=== PATIENT | male | born 1940 | race Two or more races ===

== ENCOUNTER 2024-01-29 10:28 | Outpatient (AMB) | payer OTHER, SELFPAY ==
--- NOTE | 2024-01-29 10:50 | HO.NEPHOV_ITS ---
Vital Signs 01/29/24 10:52 Height 5 ft 9 in Weight 125 lb 4 oz BMI 18.5 BP 110/60 Blood Pressure Location Lt brachial Position Sitting Pulse 79 Pulse Source Pulse Oximeter Pulse Oximetry (%) 98 Oxygen Delivery Method Room Air Intake Visit Reasons: CKD- Previous pt- Conf Renal Case Manager Required: Yes Renal Case Manager Language: [place] Guide Services: Renal Case Manager Offered & Declined ([facility] metal window screen assembler services refused. Pt accompanied by son.) Renal Case Manager Name: Sung-Son Accompanied by: Son Allergies morphine [MORPHINE] Allergy (Intermediate, Verified 01/29/24 10:56) RASH, ITCHING NSAIDS (Non-Steroidal Anti-Inflamma [NSAIDS (NON-STEROIDAL ANTI-INFLAMMA] Allergy (Unknown, Verified 01/29/24 10:56) UNKNOWN pregabalin [From Lyrica] Allergy (Verified 01/29/24 10:56) Unknown ibuprofen [From MOTRIN] Adverse Reaction (Unknown, Verified 01/29/24 10:56) NAUSEA HPI Comments Details: I had the privilege of seeing Mr. Bailey in consultation for CKD and hypertension. He was accompanied by his son and [id number] who provided most of the history. He is a known diabetic with history of myocardial infarction, CVA and peripheral arterial disease. He has longstanding peripheral neuropathy which has been worse. He claims to have decreased activity since his hip fracture. He does not have any active lower extremity ulcers and gangrene. He continues to be a smoker. His serum creatinine in July 2023 was 1.07. He denies any chest pain, shortness of, proximal nocturnal dyspnea, orthopnea, hematuria, recurrent urinary infection, nephrolithiasis, joint pain, sinusitis, new skin rashes, photosensitivity, epistaxis or excessive nonsteroidal anti-inflammatory medication intake. Imaging done in the past had shown right renal artery showing very little flow with an atrophic appearing right kidney. 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 He had failed revascularization for his peripheral arterial disease. [facility] Medical History (Updated 02/11/24 @ 13:12 by Ayad Byrne MD) Unintentional weight loss Secondary hypercoagulable state CAD (coronary artery disease) Renal artery injury Atrial fibrillation Renal infarct Peripheral arterial disease Facial droop CVA (cerebral vascular accident) Pulmonary emphysema Lung nodule, multiple Tobacco use Low back pain GERD (gastroesophageal reflux disease) Tubular adenoma of colon Peripheral neuropathy Anemia Old ND (myocardial infarction) Type 2 diabetes mellitus with neurological manifestations, controlled Essential (primary) hypertension Hyperlipidemia BPH (benign prostatic hyperplasia) Surgical History H/O colonoscopy History of cholecystectomy History of revascularization procedure of lower extremity Social History Alcohol intake: never Patient Tobacco Use Status: Current everyday Tobacco user Review of Systems Const All systems reviewed & are unremarkable except as noted in HPI and below Physical Exam Vital Signs: Last Vital Signs Pulse 79 01/29/24 10:52 BP 110/60 01/29/24 10:52 Pulse Ox 98 01/29/24 10:52 Oxygen Delivery Method Room Air 01/29/24 10:52 BMI result Body Mass Index 18.5 Const Other: sitting on a wheel chair General: comfortable and no acute distress Orientation/consciousness: patient oriented x3 HEENT Head: Yes normocephalic Mouth: Normal oral and palatal mucosa present Eyes EOM: EOMs intact bilaterally Neck Neck: Yes supple Resp Auscultation: clear to auscultation bilaterally Cardio Jugular venous distension: no JVD Rate: regular rate GI Palpation (GI): Soft to palpation Auscultation: normal bowel sounds General: Yes no CVA tenderness Back/Spine/Pelvis Back: no CVA tenderness Skin General skin exam: no rashes or lesions noted Neuro General: patient oriented x3 and moves all extremities Results Reviewed Nephrology Results: No Data to Display Assessment & Plan Assessment & Plan (1) CKD (chronic kidney disease) stage 3, GFR 30-59 ml/min: Code(s): N18.30 - Chronic kidney disease, stage 3 unspecified Category: Medical Qualifiers: Chronic kidney disease stage 3 subtype: stage 3a (GFR 45-59) Qualified Code(s): N18.31 - Chronic kidney disease, stage 3a (2) Hypertension: Code(s): I10 - Essential (primary) hypertension Category: Medical Qualifiers: Hypertension type: renovascular hypertension Qualified Code(s): I15.0 - Renovascular hypertension Plan Mr. 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 His last serum creatinine was done in July of 2023 which has been close to baseline. His blood pressure is at goal. He is tolerating ARB. He is on statins and Plavix as well as Xarelto . He takes Flomax for prostatic symptoms. He will be a great candidate for SGLT2 inhibitor. More than 50% time spent discussing about his CKD, renovascular issues, hypertension and management strategies. He avoids nonsteroidal anti-inflammatories and maintain good hydration. Time spent retrieving all his past medical records, reviewing it, patient encounter and documentation 61 minutes. Follow-up lab work ordered. Further management is pending evolving data Orders: Orders Electrolytes 01/29/24 N18.30 - Chronic kidney disease, stage 3 unspecified Parathyroid Hormone Intact 01/29/24 N18.30 - Chronic kidney disease, stage 3 unspecified Vitamin D 25-OH Total 01/29/24 N18.30 - Chronic kidney disease, stage 3 unspecified Hemoglobin A1c 01/29/24 N18.30 - Chronic kidney disease, stage 3 unspecified Complete Blood Count Auto Diff 01/29/24 N18.30 - Chronic kidney disease, stage 3 unspecified Creatinine 01/29/24 N18.30 - Chronic kidney disease, stage 3 unspecified Blood Urea Nitrogen 01/29/24 N18.30 - Chronic kidney disease, stage 3 unspecified Calcium 01/29/24 N18.30 - Chronic kidney disease, stage 3 unspecified Immunofixation Pnl, Serum 01/29/24 N18.30 - Chronic kidney disease, stage 3 unspecified Phosphorus 01/29/24 N18.30 - Chronic kidney disease, stage 3 unspecified Protein Creatinine Ratio, Ur 01/29/24 N18.30 - Chronic kidney disease, stage 3 unspecified Coding Level of Care Code New Pt Level 5 (28840) Diagnoses Stage 3a chronic kidney disease N18.31 Chronic kidney disease stage 3 subtype: stage 3a (GFR 45-59) Renovascular hypertension I15.0 Hypertension type: renovascular hypertension
[2024-01-29 10:52] VITALS: BP 110/60; PULSE 79; O2SAT 98; BMI 18.5
== END 2024-01-29 11:18 | disposition home or self-care (01) ==
LOC: HO.HKA 10:28
PROVIDERS: PCP Internal Medicine; Visit Provider Internal Medicine Nephrology
DX: I12.9 Hypertensive chronic kidney disease with stage 1 through stage 4 chronic kidney disease, or unspecified chronic kidney disease (principal); N18.31 Chronic kidney disease, stage 3a
CPT/HCPCS: 99215

== ENCOUNTER → 2024-01-29 10:28 | Outpatient (BNVA) | payer OTHER, SELFPAY | PROVIDERS: PCP Internal Medicine; Visit Provider Internal Medicine Nephrology | DX: I15.0 Renovascular hypertension (principal); I25.2 Old myocardial infarction; E11.22 Type 2 diabetes mellitus with diabetic chronic kidney disease; E11.51 Type 2 diabetes mellitus with diabetic peripheral angiopathy without gangrene; E11.40 Type 2 diabetes mellitus with diabetic neuropathy, unspecified; N18.31 Chronic kidney disease, stage 3a; Z86.73 Personal history of transient ischemic attack (TIA), and cerebral infarction without residual deficits | CPT/HCPCS: 99212 ==

== ENCOUNTER 2024-04-30 11:23 | Outpatient (REF) | payer OTHER, SELFPAY ==
[2024-04-30 12:03] LABS: MANUAL DIFF FLAG NO
[2024-04-30 12:18] LABS: Basophils Percent Auto 0.5 % (0-2); Eosinophils Absolute Auto 0.2 X10*3/uL (0.0-0.4); Eosinophils Percent Auto 1.8 % (0-4); Hematocrit 41.8 % (42.0-52.0); Hemoglobin 13.5 g/dl (14.0-18.0); Imm Gran Abs Auto 0.03 X10*3/uL (0.00-0.03); Imm Gran Pct Auto 0.4 % (0.0-0.4); Lymphocytes Percent Auto 36.5 % (20-40); Mean Corpuscular HGB Conc 32.3 g/dl (31.0-36.0); Mean Corpuscular Hemoglobin 28.8 pg (27.0-33.0); Mean Corpuscular Volume 89.1 fL (80.0-98.0); Mean Platelet Volume 10.7 fL (9.4-12.4); Monocytes Absolute Auto 0.4 X10*3/uL (0.1-1.2); Monocytes Percent Auto 5.3 % (2-11); Neutrophils Absolute Auto 4.6 x10*3/uL (2.0-8.3); Neutrophils Percent Auto 55.5 % (45-73); Platelet Count 222 X10*3/uL (160-400); Red Blood Count 4.69 X10*6/uL (4.60-5.80); Red Cell Distribution Width 13.7 % (11.0-16.0); White Blood Count 8.3 X10*3/uL (4.8-10.8)
[2024-04-30 12:52] LABS: Anion Gap 9 (12-20); Blood Urea Nitrogen 16 mg/dL (9-16); Carbon Dioxide 26 mmol/L (22-29); Chloride 110 mmol/L (96-108); Estimated Glomerular Filt Rate > 60; Phosphorus 3.1 mg/dL (2.7-4.5); Potassium 3.4 mmol/L (3.3-5.1); Sodium 142 mmol/L (135-145)
[2024-04-30 12:59] LABS: Vitamin D 25-OH Total 40.6 ng/mL (>30)
[2024-04-30 13:27] LABS: Estimated Average Glucose 108 mg/dL; Hemoglobin A1C 124.7711 umol/L; Hemoglobin A1c % 5.4 % (<6.0); Total Hemoglobin (HGBA1C) 3520.1574 umol/L
[2024-04-30 13:33] LABS: Parathyroid Hormone Intact 53.4 pg/mL (8.7-77.1)
--- OUTSIDE RECORDS SUMMARY | 2024-04-30 15:18 | XMS_ITS ---
Author Name Mr. Deny Urbano Address [address] [place] [address] Phone [phone] [facility] Care Team Providers Care Wares Sorter Name Role Phone Arsenio Cline Unavailable [phone] Unavailable Unavailable Unavailable [facility] Unavailable Unavailable Unavailable Unavailable Reason for Referral Not Available Allergies, adverse reactions, alerts Allergen Type Reaction Severity Status Onset Date Lyrica Allergy to substance (disorder) Unknown Active N/A Morphine Allergy to substance (disorder) Unknown Active N/A Motrin Allergy to substance (disorder) Unknown Active N/A Lisinopril Allergy to substance (disorder) Unknown Active N/A History of medication use Medication Class Instructions Start Date End Date oxyCODONE 5 mg Tab No Data Available 2022-10-22 No D león Available Accu-Chek FastClix Lancets Miscellaneous No Data Available 2022-08-14 No Data Available Atorvastatin Calcium 80 mg Tab take 1 tablet orally once daily 2022-08-14 No Data Available Clopidogrel Bisulfate 75 mg Tab 1 tablet orally daily 2022-06-04 No Data Available Finasteride 5 mg Tab 1 tablet orally daily 2022-09-18 No Data Available Folic Acid 1 mg Tab take 1 tablet orally once daily 2022-09-04 No Data Available Gabapentin 300 mg Cap 1 capsule orally at bedtime 2022 No Data Available Losartan Potassium 25 mg Tab 1 tab PO QD 2022-09-28 No Data Available metFORMIN ER 500 mg Tab ER 24hr No Data Available 2022-08-14 2023-04-22 Metoprolol Succinate ER 25 m g Tab ER 24hr 1 tablet QD 2022-06-04 No Data Available MULTIVITAMIN TABLET 1 tab daily 2022-08-14 No Data Available Omeprazole 20 mg Cap delayed rel 1 daily 2022-06-11 No Data Available QUEtiapine Fumarate 25 mg Tab No Data Available 08-144-01-22 Tamsulosin 0.4 mg Cap 1 capsule orally o ne time daily 2022-09-18 No Data Available VITAMIN B-1 100 MG TABLET No Data Available 2022-08-14 No Data Available VITAMIN B-12 100 MCG TABLET No Data Available No Data Available Xarelto 20 mg Tab No Data Available 2022-06-0404-22 OneTouch Ultra Strip No Data Available 2022-08-14 No Data Available oxyCODONE 5 mg Tab 1 tab twice daily as needed 2023-04 No Data Available Xtampza ER 27 mg Cap ER 12hr Abuse-Deterrent 1 capsule orally every 12 hours with food 2023-04-22 No Data Available Xarelto 15 mg Tab 1 tablet orally 2 ti mes per day 2023-06-26 No Data Available Naloxone 4 mg/0.1ML Liquid No Data Available 2023-05-31 2 No Data Available Xarelto 15 mg Tab No Data Available 2023-06-25 No Da ta Available amLODIPine Besylate 10 mg Tab TAKE 1 TAB LET BY MOUTH DAILY 2023-06-25 No Data Available Problem List Problem Status Onset Date Resolved Date Hypertension Active 2023-04-22 N/A Nicotine dependence Active 2023-04-22 N/A GERD (gastroesophageal reflux disease) Active 24-04-21 N/A History of CVA (cerebrovascular accident) Active 2023-04-22 N/A BPH (benign prostatic hyperplasia) Active 04-22 N/A Atherosclerosis of aorta Active 2023-04-22 N/A Opioid useChronic pain Active 2023-04-22 N/A Atherosclerosis of [place] ar teries of extremities with rest pain, bilateral legs Active 2023-04-22 N/A Type 2 diabetes mellitus wit h other specified complicationType 2 diabetes mellitus with hyperlipidemia Active 2023-04-22 N/A History of HI (myocardial in farction)History of coronary artery stent placement Active 2023-04-22 N/A Moderate dementia without behavioral disturbance Activ e 2023-04-22 N/A 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 [place] 04[place]/2023 Type 2 diabetes mellitus wit h other specified complicationHyperlipidemia, unspecifiedEssential (primary) hypertensionGastro-esophageal reflux disease without esophagitisUnspecified dementia, moderate, without behavioral disturbance, psychotic disturbance, mood disturbance, and anxietyAtherosclerosis of aortaAthscl [place] arteries of extrm w rest pain, bilateral legsEnlarged prostate without lower urinary tract symptomsPrsnl hx of TIA (TIA), and cereb infrc w/o resid deficitsOld myocardial infarctionPresence of coronary angioplasty implant and graftNicotine dependence, unspecified, uncomplicatedOpioid use, unspecified, uncomplicatedOther chronic pain New patient,40-59min; chronic exacerbation, 2 stable chronic or 1 acute illness add add modifier 95 for video (do not use for phone, instead use 89701-93) [facility] [place] New patient,40-59min; chronic exacerbation, 2 stable chronic or 1 acute illness add add modifier 95 for video (do not use for phone, instead use 32666-21) [facility] [place] New patient,40-59min; chronic exacerbation, 2 stable chronic or 1 acute illness add add modifier 95 for video (do not use for phone, instead use 81847-05) [facility] [place] New patient,40-59min; chronic exacerbation, 2 stable chronic or 1 acute illness add add modifier 95 for video (do not use for phone, instead use 33999-10) [facility] [place] New patient,40-59min; chronic exacerbation, 2 stable chronic or 1 acute illness add add modifier 95 for video (do not use for phone, instead use 96992-05) [facility] [place] New patient,40-59min; chronic exacerbation, 2 stable chronic or 1 acute illness add add modifier 95 for video (do not use for phone, instead use 49728-35) [facility] [place]20[place] New patient,40-59min; chronic exacerbation, 2 stable chronic or 1 acute illness add add modifier 95 for video (do not use for phone, instead use 60664-17) [facility] [place] 04[place]20[place] New patient,40-59min; chronic exacerbation, 2 stable chronic or 1 acute illness add add modifier 95 for video (do not use for phone, instead use 68057-57) [facility] [place] New patient,40-59min; chronic exacerbation, 2 stable chronic or 1 acute illness add add modifier 95 for video (do not use for phone, instead use 30928-08) [facility] [place] RN, CN or CP time with patient by phone; use with 1111F, BP, A1c or other CPTII codes [facility] [place] 06[place]2023 Encounter for other specifie d aftercare RN, CN or CP time with patient by phone; use with 1111F, BP, A1c or other CPTII codes [facility] [place] 06[place]26/20[place] Estab. patient 20-29min; 1 stable chronic or 2 minor; add add modifier 95 for video, modifier [address] [facility] [place]2023 Unspecified infectious diseasePresence of other specified devicesUnspecified dementia, moderate, without behavioral disturbance, psychotic disturbance, mood disturbance, and anxietyEncounter for other specified aftercare Estab. patient 20-29min; 1 stable chronic or 2 minor; add add modifier 95 for video, modifier [address] [facility] [place]20[place] RN, CN or CP time with patient by phone; use with 1111F, BP, A1c or other CPTII codes [facility] [place] 07/02/2023 Encounter for other specifie d aftercare Vital Signs Date of Collection Vitals 2023-04-22 09:36:09 Height - 172.72 cmWe ight - 64.86 kgBody Mass Index (BMI) - 21.74 kg/m2BP Diastolic - 61.0 mm[Hg]BP Systolic - 136.0 mm[Hg]Heart Rate - 59.0 /minPain Scale - 0.0 {score} Social History Social History Social History Observation Description Effec tive Time Current Smoking Status Current every day smoker 2024-04-30 Sex Male History of Procedures Procedures Service Procedure code Service date Servicing provider Phone# New patient,40-59min; chronic exacerbation, 2 stable chronic or 1 acute illness add add modifier 95 for video (do not use for phone, instead use [id number]) 16566 2023-04-22 No Data Available No Data Availa ble Pain Assessment - NO pain present (1126F) 1126F 2023-04-22 No Data Available No Data A vailable Medication List Documented (1159F) 1159F 2023-04-22 No Data Available No Data Liz ilable Medication Review by prescribing provider or pharmacist documented (1160F) 1160F 2023-04-22 No Data Available No Data Liz ilable Advance Care Directive Advance care planning discussion documented in the medical record (1158F) 1158F 2023-04-22 No Data Available No Data Availa ble BMI obtained (3008F) 3008F 2023-04-22 No Data Availab le No Data Available Advance care planning discussed and documented ? advance care plan or surrogate decision-maker was documented in the medical record. (1123F) 1123F 2023-04-22 No Data Available No Data Availa ble SBP 130-139 (3075F) 3075F 2023-04-22 No Data Availabl e No Data Available DBP <80 (3078F) 3078F 2023-04-22 No Data Available No Data Available Functional Status Assessed (1170F) 1170F 2023-04-22 No Data Available No Data Avail able RN, CN or CP time with patient by phone; use with 1111F, BP, A1c or other CPTII codes 64550 2023-06-26 No Data Available No Data Avai lable Medications prescribed in hospital were reviewed and reconciled against what they were taking prior to admission during today's visit. (1111F) 1111F 2023-06-26 No Data Available No Data Availa ble Estab. patient 20-29min; 1 stable chronic or 2 minor; add add modifier 95 for video, modifier 93 for phone 54682 2023-06-27 No Data Available No Data Availa ble Medications prescribed in hospital were reviewed and reconciled against what they were taking prior to admission during today's visit. (1111F) 1111F 2023-06-27 No Data Available No Data Availa ble RN, CN or CP time with patient by phone; use with 1111F, BP, A1c or other CPTII codes 39155 2023-07-02 No Data Available No Data Avai lable Functional Status Functional Category Effective Dates Activities of Daily Livin2023-04-22 Bathing: Needs Assistance 2023-04-22 Dressing: Needs Assistance 2023-04-22 Eating: Independent 2023-04-22 Ambulation/Walking: Needs Assistance, us es walker. 2023-04-22 Toileting: Needs Assistance 2023-04-22 Transferring: Needs Assistance 2023-04-02 2 Mental Status Status Date Impaired/ Dementia 2023-04-22 Assessments Date of Service Assessments 2023-04-22 09:36:09 Type 2 diabetes mee itus with other specified complicationType 2 diabetes mellitus with hyperlipidemiaHypertensionGERD (gastroesophageal reflux disease)Moderate dementia without behavioral disturbanceAtherosclerosis of aortaAtherosclerosis of [place] arteries of extremities with rest pain, bilateral legsBPH (benign prostatic hyperplasia)History of CVA (cerebrovascular accident)History of HI (myocardial infarction)History of coronary artery stent placementNicotine dependenceOpioid useChronic pain 2023-06-27 08:52:36 Patient Education to avoid future hospitalization: Call [facility] if symptoms of illness develop.Infection with trinh catheter in placeModerate dementia without behavioral disturbance Plan of Care Date of Service Plans 2023-04-22 09:36:09 Pain Assessment - NO pain documented (1126F)Medication Review by prescribing provider or pharmacist documented (1160F)Medication List Documented (1159F)Functional Status Assessed (1170F)Advance Care Directive Advance care planning discussion documented in the medical record (1158F)BMI obtained (3008F)SBP 130-139 (3075F)DBP <80 (3078F)Televideo new patient,40-59min; chronic exacerbation, 2 stable chronic or 1 acute illness add modifier 95Advance care planning discussed and documented ? advance care plan or surrogate decision-maker was documented in the medical record. (1123F)Continue to see PCP. Follow-up with [facility] as needed for any acute or disease education needs that may arise.Follows up with PCP.Glucose at home: 90 mg/dl. Was taking Metformin, but discontinued by PCP due to being stable and monitoring for now.No recent A1C found on outside records. Taking:DM: Diet controlled. HL: Atorvastatin Calcium 80 mg Tab take 1 tablet orally once dailyAdvised to follow low fat, low carb, heart healthy diet.Continue treatment as prescribed. Follow up with PCP as scheduled.Contact CB 24/7 as needed.Follows up with PCP and Community Development Aide.BP: 136/61. Reported by lorie, taken at time of video encounter. Reports it has been well controlled. Taking:Losartan Potassium 25 mg Tab 1 tab PO QDMetoprolol Succinate ER 25 mg Tab ER 24hr 1 tablet QDDenies any acute complaint.Continue treatment as prescribed, follow up as instructed.Monitor BP regularly at home.Follow low Sodium diet. Contact CB 24/7 as needed.Follows up with PCP.Taking: Omeprazole 20 mg Cap delayed rel 1 dailyDenies any acute complaint.Continue treatment as prescribed, follow up as instructed.Elevate head of bed. Avoid triggers. Contact CB 24/7 as needed.Follows up with Neurologist.Lorie reports decline in memory.Neurologist ordered some tests, pending to complete.Not taking any medications.Lives at home with his . Lorie is primary caregiver. Denies any acute complaint.Follows up with PCP and Community Development Aide.Taking: Atorvastatin Calcium 80 mg Tab take 1 tablet orally once dailyAdvised to follow low fat, low carb, heart healthy diet.Continue treatment as prescribed. Follow up with PCP as scheduled.Contact CB 24/7 as needed.Follows up with vascular specialist.Reports frequent leg pain bilaterally,.Denies any skin ulcers at this time.Uses walker to ambulate. Taking: Clopidogrel Bisulfate 75 mg Tab 1 tablet orally dailyAtorvastatin Calcium 80 mg Tab take 1 tablet orally once dailyDoing well on current treatment.Denies any acute complaint.Continue treatment as prescribed, follow up as instructed.Contact CB 24/7 as needed.Follows up with Urologist.Taking: Finasteride 5 mg Tab 1 tablet orally dailyTamsulosin 0.4 mg Cap 1 capsule orally one time dailyDoing well on current treatment.Denies any acute complaint.Continue treatment as prescribed, follow up as instructed.Contact CB 24/7 as needed.History of CVA (cerebrovascular accident) in 2018. Completed PT and no residual effects. Follows up with PCP and Community Development Aide. Denies any acute complaint.History of HI (myocardial infarction) about [address] ago[address] in [address] Follows up with Community Development Aide.On Statin: Atorvastatin Calcium 80 mg Tab take 1 tablet orally once dailyTaking: Clopidogrel Bisulfate 75 mg Tab 1 tablet orally dailyDoing well on current treatment.Denies any acute complaint.Continue treatment as prescribed, follow up as instructed.Contact CB 24/7 as needed.Daily smoke, not willing to quit. Advised of negative effects of smoking and health. Contact us 24/7 for assistance with smoking cessation.Follows up with PCP every 2-3 months as needed. Reports chronic pain to legs and knees. Taking:oxyCODONE 5 mg Tab 1 tab twice daily as neededXtampza ER 27 mg Cap ER 12hr Abuse-Deterrent 1 capsule orally every 12 hours with foodGabapentin 300 mg Cap 1 capsule orally at bedtimePrescribed by PCP, Dr. HERNANDO VEGA.Has been taking these medications for years without any complications. Reports doing well on treatment. Denies any complications.Advised to take medications as prescribed only.Follow up as scheduled.Contact CB 24/7 as needed. 2023-06-27 08:52:36 Discharge medication s reconciled with current medication listTelevideo 20-29min; 1 stable chronic or 2 minor; add modifier 95PCP visit is planned for:Awaiting hospital recordsPer CG p t clearly needs nursing at home but details are unknown to us. CN to call family and facilitate communication w PCP and hospital who are the ones referring the nurse.Follows up with Neurologist.Grandson reports decline in memory.Neurologist ordered some tests, pending to complete.Not taking any medications.Lives at home with his . Grandson is primary caregiver. Denies any acute complaint. 2023-07-02 14:06:30 07/05/23 Goals Date Goal 2023-04-22 Remember to keep all appointments with your PCP and specialists. Call 24/7 if you have questions or concerns. Discussed how to contact [facility] via phone or tablet. 24/7 phone number provided.
--- OUTSIDE RECORDS SUMMARY | 2024-04-30 15:18 | XMS_ITS ---
Author Organization [facility] Address [address] [place] [address] Care Team Providers Care Vehicle Care Specialist Name Role Phone Idalia Beckman Primary Care Provid er Unavailable GaffneyLee Ann Unavailable [phone] Allergies Allergen (clinical drug ingredient) Drug/Non Drug Allergy documented on EMR Reaction Allergy Type Onset Date Status morphine Morphine redness Drug Allergy Active REASON FOR VISIT At Risk Footcare, Painful Nail(s) aggravated by shoes and causing difficulty standing/walking., Skin problem(s) Medications Medication SIG (Take, Route, Frequency, Duration) Notes Start Date End Date Status Gabapentin 1 @ bedtime Active Losartan Potassium 1 daily A ctive Finasteride 1 daily Active Atorvastatin Calcium Active Clopidogrel & Aspirin 1 daily Active Tamsulosin HCl 1 in A.M. Activ e Multivitamin 1 dauky Active Omeprazole 1 daily Active Vitamin B12 1 daily Active Metoprolol & Diet Manage Prod 1 daily Active Ammonium Lactate 12 % 1 application Externally to affected areas of dry skin to feet except for between the toes Twice a day for 30 days Active Plavix Active Social History Tobacco Use: Social History Observation Description Date Details (start date - stop date) Former Smoker NA - NA Tobacco use other than smoking: Question Answer Notes Are you an other tobacco user? No Tobacco Control (Standard) Question Answer Notes Tobacco use: Former smoker Additional Findings: Tobacco non-user Cu rrent nonsmoker, but past smoking history unknown AUDIT-C (Standard) Question Answer Notes Did you have a drink containing alcohol in the p ast year? No Points 0 Interpretation Negative Problems Problem Type SNOMED Code ICD Code Onset Dates Problem Status W/U Status Risk Notes Problem Atherosclerosis of [place] artery of both lower extremities, with unspecified presence of clinical manifestation (I70.203) Active confirmed Q7(A), Q8(2B), Q9(1B,2C) Vital Signs Height 5 ft 9inch in 03/02/2024 Weight 128 lbs 03/02/2024 BMI 18.9 kg/m2 03/02/2024 Procedures Procedure Date Ordered Date Performed Result Body Sit e 44520-XLFXOBS NAIL, 6 OR MORE 03/02/2024 N/A 36347-GPCL SKIN LESIONS, 2 TO 4 03/02/2024 N/A Encounters Encounter Location Date Provider Diagnosis [facility] [place] [address] [place] [address] 03/02/2024 Lee Ann Gaffney Atherosclerosis of [place] artery of both lower extremities, with unspecified presence of clinical manifestation I70.203 ; Tinea unguium B35.1 ; Pain in right toe(s) M79.674 ; Pain in left toe(s) M79.675 and Xerosis of skin L85.3 Assessments Encounter Date Diagnosis (ICD Code) Assessment Notes Treatment Notes Treatment Clinical Notes Section Notes 03/02/2024 Atherosclerosis of [place] artery of both lower extremities, with unspecified presence of clinical manifestation (ICD-10 - I70.203) Q7(A), Q8(2B), Q9(1B,2C) 03/02/2024 Tinea unguium (ICD-10 - B35.1) 03/02/2024 Pain in right toe(s) (ICD-10 - M79.674) 03/02/2024 Pain in left toe(s) (ICD-10 - M79.675) 03/02/2024 Xerosis of skin (ICD-10 - L85.3) Plan Of Treatment Medication Medication Name Sig Start Date Stop Date Notes Ammonium Lactate 12 % 1 application Exte rnally to affected areas of dry skin to feet except for between the toes Twice a day for 30 days Pending Test Test Name Order Date 91084-HUHTLHT NAIL, 6 OR MORE 03/02/2024 63673-PCXP SKIN LESIONS, 2 TO 4 03/02/20 24 Next Appt Details Follow Up: 4 Months, Reason: Provider Name:Lee Ann thorpe, 07/15/2024 01:30:00 PM, [address] [place], [address], Procedure Notes * Category Sub-Category Detail Notes Debride Nail 6-10 Nail debridement Performance o f this nail treatment by a nonprofessional would put this patients foot and overall health at risk. Therefore, debridement to affected nail(s), as described in exam, was performed extensively to reduce/remove overall nail length, girth, thickness, subungual debris, and necrotic tissue, by manual and/or electrical means through the use of a nail nipper and/or dremel-type sausage grinder, to a more viable healthy nail plate or bed tissue 6-10 nails in total. Silver nitrate was used for any petechial bleeding as necessary. Definitive antifungal treatment options, both pharmaceutical and surgical, have been reviewed and discussed with the patient. The patient solely prefers the use of intermittent/as needed professional debridement services for their nail condition and understands the need for additional periodic treatments to maintain effectiveness in symptomatic relief - 03907 Keratoma Treatment Parring or Cutting o f Benign Hyperkeratotic Lesion(s) (-56) 2-4 Lesions - The Benign hyperkeratotic lesions, ( _2 ) in total, locations as stated and described in exam, were pared, and/or cut utilizing a sterile 15 blade, tissue nippers, and/or power dremel instrumentation - 91683, Q8 Progress Notes * Ross BAILEYioDOB: [birth year] (83 yo M)Acc No.[id number]:03/02/2024 Progress Notes Patient:?Markus BAILEY Provider:?Lee Ann Gaffney DPM :1940???Age:83 Y???Sex:Male Mathew e:03/02/2024 Address:[address] [place], [place] [id number] Pcp:Idalia Yin account services analyst Subjective: * Chief Complaints: * ???At Risk FootcarePainful N ail(s) aggravated by shoes and causing difficulty standing/walking.Skin problem(s) * HPI: ???At Risk footcare:?Pt States Last PCP Visit:?Date?12/17/2023 ???Skin problems:?Nature:?dryness , scaling.?Location:?B/L .?Duration:?several days.?Course:?worse.? * ROS:?General/Constitutional:?Nausea?denies.?Vomiting?denies.?Hunger Thirst?denies.?Loss appetite?admits.?Chills?denies.?Fatigue?admits.?Fever?denies.?Night Sweats?denies.?Unexplained weight loss?admits.?Unexplained weight gain?denies.?HEENTM:?Dentures?denies.?Dizziness?denies.?Glasses/contacts?denies.?Retinopathy?de nies.?Blurred/double vision?denies.?TMJ?denies.?Discharge/drainage?denies.?Implants?denies.?Sore throat?denies.?Dental implants?denies.?Hard of hearing ?denies.?Difficulty chewing/swallowing/speaking?denies.?Nose bleeds?denies.?Sore mouth?denies.?Respiratory:?On Oxygen?denies.?Pneumonia/pleurisy?denies.?Bronchitis?denies.?Emphysema?denies.?C oughing?denies.?Cough blood?denies.?Shortness of breath?denies.?Wheezing?denies.?Cardiovascular:?Pacemaker?denies.?MVP?denies.?WPW?denies.?CHF?denies.?Heart attack?admits.?Septal defect?denies.?Rapid beat?denies.?Chest pain ?denies.?Atrial Fib.?denies.?Murmur/Palpitations?denies.?Gastrointestinal:?Hemorrhoids?denies.?Stomach/Abdominal pain?denies.?Dark blood stool?denies.?Irritable bowel ?denies.?Constipation?admits.?Diarrhea?denies.?Hematology:?Swelling?denies.?Clots?denies.?Varicose Veins?denies.?Bruising?denies.?Bleeding problem?admits.?Genitourinary:?Blood urine?denies.?Frequent/Painfu/urination/bladder control?denies.?Kidney stones?denies.?Infection (UTI)?admits.?Nephropathy?admits.?sex trans dis (STD)?denies.?Prostate?denies.?Musculoskeletal:?Hammertoes?denies.?Bunions?denies.?Back Pain?admits.?Muscle Cramps/ Resting?denies.?Muscle cramps / walking?denies.?Generalized aches and pains?denies.?Weakness?admits.?Integ.:?[place]?denies.?Scars?denies.?Corns/calluses?denies.?Ingrown nails?denies.?Painful nails?denies.?Open Sores?denies.?Rashes?denies.?Neurologic:?Difficulty sleeping?admits.?Brain disorder?denies.?Numbness?denies.?Balance trouble?admits.?Confusion?denies.?Fainting/blackouts?denies.?Tingling?denies.?Tr emors?denies.? * Medical History:? * Surgical History:?Denies Pas t Surgical History * Hospitalization/Major Diagno stic Procedure:?Denies Past Hospitalization * Family History:?Father: diag nosed with Unspecified heart disease, Unspecified cerebral artery occlusion with cerebral infarction, Family history of arthritis.? * Social History:?Tobacco Use:?Tobacco use other than smoking?Are you an other tobacco user??No ?Tobacco Control (Standard)?Tobacco use:?Former smoker ?Additional Findings: Tobacco non-user?Current nonsmoker, but past smoking history unknown ???Drugs/Alcohol:?Drugs?Have you used drugs other than those for medical reasons in the past 12 months??No ???Miscellaneous:?Caffeine: no, frequency:. ?Occupation: none. ???Drug/Alcohol:?AUDIT-C (Standard)?Did you have a drink containing alcohol in the past year??No ?Points?0 ?Interpretation?Negative * Medications:?TakingPlavix Om eprazole , Notes to Pharmacist: 1 dailyMetoprolol & Diet Manage Prod , Notes to Pharmacist: 1 dailyVitamin B12 , Notes to Pharmacist: 1 dailyMultivitamin , Notes to Pharmacist: 1 daukyTamsulosin HCl , Notes to Pharmacist: 1 in A.M.Losartan Potassium , Notes to Pharmacist: 1 dailyGabapentin , Notes to Pharmacist: 1 @ bedtimeFinasteride , Notes to Pharmacist: 1 dailyClopidogrel & Aspirin , Notes to Pharmacist: 1 dailyAtorvastatin Calcium Medication List reviewed and reconciled with the patientTaking Plavix Taking Omeprazole , Notes to Pharmacist: 1 dailyTaking Metoprolol & Diet Manage Prod , Notes to Pharmacist: 1 dailyTaking Vitamin B12 , Notes to Pharmacist: 1 dailyTaking Multivitamin , Notes to Pharmacist: 1 daukyTaking Tamsulosin HCl , Notes to Pharmacist: 1 in A.M.Taking Losartan Potassium , Notes to Pharmacist: 1 dailyTaking Gabapentin , Notes to Pharmacist: 1 @ bedtimeTaking Finasteride , Notes to Pharmacist: 1 dailyTaking Clopidogrel & Aspirin , Notes to Pharmacist: 1 dailyTaking Atorvastatin Calcium Medication List reviewed and reconciled with the patient * Allergies:?Morphine: redness Objective: * Vitals:?Ht:5 ft 9inch, Wt:12 8, BMI: 18.9, Shoe size:9, BS:not taken, Ht-cm: 175.26 cm, Wt-k.06 kg. * Examination: ???General Examination: ?GENERAL APPEARANCE:?Reveals a pleasant, alert, well nourished, well- developed, well hydrated individual, who demonstrates proper attention to hygiene/body habitus, and is in no acute distress, Pt presents with daughter who serves as historian.?ORIENTED:?person, place, and time.?Vascular: ?DP PULSES(B):? 0/4, B/L.?PT PULSES(B):? 0/4, B/L.?CAPILLARY FILL TIME:? delayed, all digits, B/L.?TROPHIC CONDITION-TEXTURE/ELASTICITY/TURGOR/HAIR GROWTH(B):? decreased, fragile, thin, shiny skin, with sparse to absent hair growth, B/L.?TEMPERTURE GRADIENT(C):? decreased, cool to cool, proximal to distal, B/L.?PIGMENTATION:?mottled, B/L.?EDEMA(C):?absent, B/L.?CLAUDICATION(C):?denies, B/L.?REST PAIN:?denies, B/L.?PARESTHESIA(C):?absent, B/L.?BURNING(C):?absent, B/L.?Nails: ?NAILS are:?Elongated, overgrown, dystrophic, lytic, greater than 3mm thick, discolored and friable with crumbly malodorous subungual debris, with pain on palpation, 1-5 B/L.?Dermatologic: ?SKIN FINDINGS:?Skin exam reveals Keratotic lesion(s) located at?heels B/L, Skin shows sign(s) of, dryness, scaling, in a stocking fashion, no fissure(s) present, B/L.?Orthopedic: ?MUSCLE STRENGTH:?5/5 all groups in a symmetrical fashion, B/L.?Neurological: ?SENSORY:?Neurological exam reveals intact sensorium, pain sensation normal, vibration sensation intact, pinprick sensation is normal in the lower extremities, Pt denies, anesthesia, burning, paresthesia, tingling, B/L.?Ophthalmology Referral: ?DIABETES EYE EXAM?CQM Exceptions:: ?Hemoglobin A1c not performed? Assessment: * Assessment: 1.?Atherosclerosis of [place] artery of both lower extremities, with unspecified presence of clinical manifestation - I70.203 (Primary)???Notes :Q7(A), Q8(2B), Q9(1B,2C)???2.?Tinea unguium - B35.1???3.?Pain in right toe(s) - M79.674???4.?Pain in left toe(s) - M79.675???5.?Xerosis of skin - L85.3???Specify :Acute problem, Uncomplicated (3),Rx Management (4)??? Plan: * Treatment: 2.?Tinea unguium?Procedure: 84229-YHSFTRX NAIL, 6 OR MORE 3.?Xerosis of skin? Start Ammonium Lactate Cream, 12 %, 1 application, Externally to affected areas of dry skin to feet except for between the toes, Twice a day, 30 days, 140, Refills 2.?? * Procedures:?Debride Nail 6-10:?Nail debridement?Performance of this nail treatment by a nonprofessional would put this patients foot and overall health at risk. Therefore, debridement to affected nail(s), as described in exam, was performed extensively to reduce/remove overall nail length, girth, thickness, subungual debris, and necrotic tissue, by manual and/or electrical means through the use of a nail nipper and/or dremel-type sausage grinder, to a more viable healthy nail plate or bed tissue 6-10 nails in total. Silver nitrate was used for any petechial bleeding as necessary. Definitive antifungal treatment options, both pharmaceutical and surgical, have been reviewed and discussed with the patient. The patient solely prefers the use of intermittent/as needed professional debridement services for their nail condition and understands the need for additional periodic treatments to maintain effectiveness in symptomatic relief - 55004.?Keratoma Treatment:?Parring or Cutting of Benign Hyperkeratotic Lesion(s)?(-56) 2-4 Lesions - The Benign hyperkeratotic lesions, ( _2 ) in total, locations as stated and described in exam, were pared, and/or cut utilizing a sterile 15 blade, tissue nippers, and/or power dremel instrumentation - 82661, Q8.? * Procedure Codes:?07989 DEBRI DE NAIL, 6 OR MORE, Modifiers: XS 05421 TRIM SKIN LESIONS, 2 TO 4, Modifiers: XS , Q8 * Preventive Medicine:? ??Counseling:?Discussion:?-03: Office or other outpatient visit for the evaluation and management of a new patient, which required a medically appropriate history and/or examination and LOW level of DECISION MAKING for: 1 STABLE ACUTE UNCOMPLICATED PROBLEM, 2 OR MORE MINOR PROBLEMS, OR 1 STABLE CHRONIC PROBLEM, THAT POSE(S) A LOW RISK FOR MORBIDITY/MORTALITY. The visit on the day of the encounter encompassed interpreting the data and educating the patient as to the nature of their condition, treatment options available according to their individual PMH, meds, allergies, and overall health/living conditions, as well as any potential risks or complications that may occur from a failure to adhere to, and participate in, the recommended course of therapy. The discussion included a complete verbal, and/or written explanation of the examination results, any x-rays taken, the proposed diagnosis, and outline of the treatment plan. A schedule for future care needs was also explained. The patient verbalized an understanding of the instructions at this time and agreed to be an active participant in their treatment. If the patient should think of any questions or concerns after the visit, I have encouraged the patient to call the office.?Xerosis:?The patient was counseled on the diagnosis, potential etiologies, and treatment options for their skin condition. We discussed the risks and benefits of each option from performing no treatment, to utilizing OTC topical skin creams/ointments, to utilizing prescription topical creams/ointments, to utilizing customized compounded topical medications and use of nocturnal occlusion with any/all previously detailed therapies. We discussed the advantages and disadvantages of each possible treatment and importance for adherence to all the recommended therapies for optimum success and avoid potential complications such as open sore/infection/possible hospitalization. We discussed the potential effectiveness of each topical preparation as well as each ones possible side effects and/or patient medication interactions. Patient questions re: use, dosage, successful outcomes, and application consistency were reviewed and the patient verbalized that all answers were clearly understood. The patient has decided to apply Rx skin creams to their feet save the interspaces while paying special attention to the heels. Such was sent to their pharmacy at the time of visit.? * Follow Up:?4 Months * Images: * Sign off status: Completed true * Provider:?Lee Ann Gaffney DPM Date:?05/03/2023 Generated for Miles camacho/Hira/Mane on:?04/30/2024 03:17 PM EST History and Physical Notes * HPI (History of Present Illness) Category Sub-Category Detail Notes Category Not es Skin problems Nature: dryness , scaling Location: B/L Duration: several days Course: worse At Risk footcare Pt States Last PCP Visit: Date: 4 Examination Category Sub-Category Detail Notes Category Not es Neurological SENSORY: Neurological exa m reveals intact sensorium, pain sensation normal, vibration sensation intact, pinprick sensation is normal in the lower extremities, Pt denies, anesthesia, burning, paresthesia, tingling, B/L Dermatologic SKIN FINDINGS: Skin exam reveal s Keratotic lesion(s) located at heels B/L, Skin shows sign(s) of, dryness, scaling, in a stocking fashion, no fissure(s) present, B/L Orthopedic MUSCLE STRENGTH: 5/5 all groups in a symmetrical fashion, B/L General Examination GENERAL APPEARANCE: Reveals a pleasant, alert, well nourished, well-developed, well hydrated individual, who demonstrates proper attention to hygiene/body habitus, and is in no acute distress, Pt presents with daughter who serves as historian ORIENTED: person, place, and t evans Ophthalmology Referral DIABETES EYE EXAM Procedure Perform ed:: No Findings of Diabetic Eye Exam:: no retin opathy Vascular DP PULSES (B): 0/4, B/L PT PULSES (B): 0/4, B/L CAPILLARY FILL TIME: delayed, all digits , B/L TEMPERTURE GRADIENT (C): decreased, cool to cool, proximal to distal, B/L TROPHIC CONDITION-TEXTURE/ELASTICITY/TURGOR/HAIR GROWTH (B): decreased, fragile, thin, shiny skin, wi th sparse to absent hair growth, B/L EDEMA (C): absent, B/L CLAUDICATION (C): denies, B/L REST PAIN: denies, B/L PIGMENTATION: mottled, B/L PARESTHESIA (C): absent, B/L BURNING (C): absent, B/L Nails NAILS are: Elongated, overg rown, dystrophic, lytic, greater than 3mm thick, discolored and friable with crumbly malodorous subungual debris, with pain on palpation, 1-5 B/L CQM Exceptions: Hemoglobin A1c not performed Reason:: No r alexy specified
--- OUTSIDE RECORDS SUMMARY | 2024-04-30 15:18 | XMS_ITS ---
Author Organization [facility] Address [address] [place] [id number] Care Team Providers Care State Appellate Clerk Name Role Phone Idalia Beckman Primary Care Provid er Unavailable Lee Ann Gaffney [phone] REASON FOR VISIT STUDENT WORKER PW Encounters En[facility] [address] [facility] Lee Ann Gaffney Plan Of Treatment Next Appt Details Provider Name:Lee Ann thorpe, 07/15/2024 01:30:00 PM, [address] [place], [address], Progress Notes * Ross BAILEYioDOB: [birth year] (83 yo M)Acc No.[id number]:02/19/2024 Patient:?Markus BAILEY :1940???Age:83 Y???Sex:Male Address:[place] [address] * true * Date:? Generated for Miles camacho/Hira/eTransmitting on:?04/30/2024 03:17 PM EST
--- OUTSIDE RECORDS SUMMARY | 2024-04-30 15:18 | XMS_ITS | Clinical Summary ---
Author Organization [id number] it Address [address] [place] [address] Care Team Providers Care Building Engineer Name Role Phone JasonIdalia delcid DO Primary Care Pro vider Surgical History Surgery Date Site/Laterality Comments CHOLECYSTECTOMY PROCEDURE: HISTORICAL CHOLECYSTECTOMY; COMMENT: ? removal or stent COLONOSCOPY 11/21/2016 PROCEDURE: HISTORICAL COLONOSCOPY; COMMENT: tubular adenoma OTHER SURGICAL HISTORY 04/17/2022 PROCEDURE: CA SLCTV CATHJ 3RD+ ORD SLCTV ABDL PEL/LXTR BRNCH OTHER SURGICAL HISTORY 04/17/2022 PROCEDURE: X-RAY ABDOMINAL AORTA, LEG ARTERIES OTHER SURGICAL HISTORY 04/17/2022 PROCEDURE: X-RAY EXAM OF ARM/LEG ARTERY OTHER SURGICAL HISTORY 04/17/2022 PROCEDURE: ULTRASOUND GUIDANCE FOR VASCULAR AC Medical History Medical History Date Comments HTN (hypertension) DX:HTN (hyper tension) Dyslipidemia DX:Dyslipidemia BPH (benign prostatic hyperplasia) DX:BPH (benign prostatic hyperplasia) CAD (coronary artery disease) 04/06/2014 DX :CAD (coronary artery disease); COMMENT: RCA stenting and re stenting 2008 Old [place] (myocardial infarction) D X:Old [place] (myocardial infarction) Diabetes type 2, controlled (CMS/HCC) DX:Diabetes type 2, controlled (HCC) Anemia 04/06/2014 DX:Anemia Peripheral neuropathy 04/06/2014 DX:Periphe ral neuropathy Tubular adenoma of colon 04/06/2014 DX:Tubu lar adenoma of colon; COMMENT: 2010 GERD (gastroesophageal reflux disease) 5 DX:GERD (gastroesophageal reflux disease) Low back pain 04/06/2014 DX:Low back pain Cholelithiases 04/06/2014 DX:Cholelithiase s Type 2 diabetes mellitus wit h neurological manifestations, controlled ([facility]) DX:Type 2 diabetes mellitus with neurological manifestations, controlled ([facility]) Tobacco use DX:Tobacco use Cerebrovascular accident (CV A) within last 3 months DX:Cerebrovascular accident (CVA) within last 3 months Choledocholithiasis 04/06/2014 DX:Choledoch olithiasis; COMMENT: 12/31/13 DM (diabetes mellitus), type 2 with peripheral vascular complications ([facility]) 02/01/2021 DX:DM (diabetes mellitus), t ype 2 with peripheral vascular complications ([facility]) Urinary retention DX:Urinary ret ention Aspiration pneumonia ([facility]) D X:Aspiration pneumonia ([facility]) LEE (acute kidney injury) ([facility]) DX:LEE (acute kidney injury) ([facility]) Type 2 diabetes mellitus wit hout complication, unspecified whether senior care insulin use ([facility]) DX:Type 2 diabetes mellitus without complication, unspecified whether senior care insulin use ([facility]) Chronic pain syndrome DX:Chronic pain syndrome Dementia ([facility]) DX:Dementia ( [facility]) Social History Tobacco Use Types Packs/Day Years Used Date Smoking Tobacco: Former Cigarettes 0.3 74.1 0 [birth year]01/1949 - 05/02/2023 Smokeless Tobacco: Never Alcohol Use Standard Drinks/Week Comments No 0 (1 standard drink = 0.6 oz pur e alcohol) Sex and Gender Information Value Date Recorded Sex Assigned at Not on file Gender Identity Not on file Sexual Orientation Not on file Obstetrics History Last Filed Vital Signs Vital Sign Reading Time Taken Comments Blood Pressure 110/60 09/16/2023 11:30 AM EDT Pulse 72 09/16/2023 11:30 AM EDT Temperature - - Respiratory Rate - - Oxygen Saturation - - Inhaled Oxygen Concentration - - Weight 55.8 kg (123 lb) 09/16/2023 11:30 AM EDT Height 172.7 cm (5' 8 ) 09/16/2023 11:30 AM EDT Body Mass Index 18.7 09/16/2023 11:30 AM EDT Plan of Treatment Health Maintenance Due Date Last Done Comments Diabetes: Annual GFR (Glomerular Filtration Rate) 1940 Diabetes: Annual Foot Exam 1950 Diabetes: Annual Retina Eye Exam 1950 DTaP,Tdap,and Td Vaccines (1 - Tdap) 06/19/1959 Zoster Vaccines (2 of 3) 02/20/2013 12/26/2012 RSV Immunization Patients 60+ Years Old (1 - 1-dose 75+ series) 06/19/2015 Cholesterol Screening (Lipid Panel) 03/10/2022 Depression Screening 03/10/2022 Falls Risk Assessment 03/10/2022 Social Influencers of Health Screening 03/10/2022 Hypertension/CHF/CAD Annual BMP Blood Test 03/11/2022 Diabetes: Annual Urine Albumin-Creatinine Ratio (uACR) 03/15/2022 Diabetes: Blood Sugar Control Test (HGBA1C) 03/15/2022 COVID-19 Vaccine ( season) 2023 Influenza Vaccine (#1) 2023 , 01/23/2019, 12/10/2017, Additional history exists Pneumococcal Vaccine: 65+ Years Completed 02/28/2016, 01/17/2010, 01/14/2002 HIB Vaccines Aged Out No longer eligi ble based on patient's age to complete this topic HPV Vaccines Aged Out No longer eligi ble based on patient's age to complete this topic Hepatitis A Vaccines Aged Out No long er eligible based on patient's age to complete this topic Hepatitis B Vaccines Aged Out No long er eligible based on patient's age to complete this topic IPV Vaccines Aged Out No longer eligi ble based on patient's age to complete this topic MMR Vaccines Aged Out No longer eligi ble based on patient's age to complete this topic Meningococcal ACWY Vaccine Aged Out N o longer eligible based on patient's age to complete this topic RSV Immunization Patients Under 20 months Aged Out No longer eligible based on patient's age to complete this topic Varicella Vaccines Aged Out No longer eligible based on patient's age to complete this topic Procedures Procedure Name Priority Date/Time Associated Diagnosis Comments ECHO 02/25/2024 EXTERNAL VASCULAR ULTRASOUND 02/13/2024 from Last 3 Months Results * Echo (02/25/2024) Anatomical Region Laterality Modality Other Provider [facility]IST[facility] [place] PROCEDURES * External Vascular Ultrasound (02/13/2024) Anatomical Region Laterality Modality Ultrasound Provider [facility] CV VASCULAR PROC EDURES from Last 3 Months Care Teams Building Engineer Relationship Specialty Start Date End Date Idalai Richey DO PCP - General Internal Medicine 02/03/14
--- OUTSIDE RECORDS SUMMARY | 2024-04-30 15:18 | XMS_ITS | Patient Health Record ---
Author Organization [facility] Address [address] [place] [address] Care Team Providers Care Carbon Cleaner Name Role Phone Idalia Beckman Primary Care Provid er Unavailable Gulshan Lee Ann Unavailable [phone] Allergies Allergen (clinical drug ingredient) Drug/Non Drug Allergy documented on EMR Reaction Allergy Type Onset Date Status morphine Morphine redness Drug Allergy Active Reason For Referral No Information Medications Medication SIG (Take, Route, Frequency, Duration) Notes Start Date End Date Status Tamsulosin HCl 1 in A.M. Activ e Multivitamin 1 dauky Active Gabapentin 1 @ bedtime Active Losartan Potassium 1 daily A ctive Finasteride 1 daily Active Ammonium Lactate 12 % 1 application Externally to affected areas of dry skin to feet except for between the toes Twice a day for 30 days Active Atorvastatin Calcium Active Clopidogrel & Aspirin 1 daily Active Omeprazole 1 daily Active Plavix Active Vitamin B12 1 daily Active Metoprolol & Diet Manage Prod 1 daily Active Social History Tobacco Use: Social History [...] W/U Status Risk Notes Problem Atherosclerosis of osage artery of both lower extremities, with unspecified presence of clinical manifestation (I70.203) Active confirmed Q7(A), Q8(2B), Q9(1B,2C) Vital Signs Height 5 ft 9inch in 03/02/2024 Weight 128 lbs 03/02/2024 BMI 18.9 kg/m2 03/02/2024 Procedures Procedure Date Ordered Date Performed Result Body Sit e 17818-RPLYZOR NAIL, 6 OR MORE 03/02/2024 N/A 42243-GPVQ SKIN LESIONS, 2 TO 4 03/02/2024 N/A Encounters Encounter Location Date Provider Diagnosis [address] [address] 03/02/2024 Lee Annalejandra Gaffney Atherosclerosis of osage artery of both lower extremities, with unspecified presence of clinical manifestation I70.203 ; Tinea unguium B35.1 ; Pain in right toe(s) M79.674 ; Pain in left toe(s) M79.675 and Xerosis of skin L85.[address] [address] 01/16/2024 [facility] [address] [facility] [address] [place] [address] 02/19/[address] [address] 03/10/2024 Lee Ann Gaffney Xerosis of skin L85.3 Assessments Encounter Date Diagnosis (ICD Code) Assessment Notes Treatment Notes Treatment Clinical Notes Section Notes 03/02/2024 Atherosclerosis of osage artery of both lower extremities, with unspecified presence of clinical manifestation (ICD-10 - I70.203) Q7(A), Q8(2B), Q9(1B,2C) 03/10/2024 Xerosis of skin (ICD-10 - L85.3) 03/02/2024 Tinea unguium (ICD-10 - B35.1) 03/02/2024 Pain in right toe(s) (ICD-10 - M79.674) 03/02/2024 Pain in left toe(s) (ICD-10 - M79.675) 03/02/2024 Xerosis of skin (ICD-10 - L85.3) Plan Of Treatment Pending Test Test Name Order Date 92161-OIAJMLB NAIL, 6 OR MORE 03/02/2024 00723-AVUK SKIN LESIONS, 2 TO 4 03/02/20 24 Next Appt Details Provider Name:Lee Ann thorpe, 07/15/2024 01:30:00 PM, [address] [place], [address], Insurance Providers Payer Name Payer Address Payer Phone Subscriber Number Group Number Insured Name Patient Relationship to Insured Coverage Start Date Coverage End Date [facility] Adv [address] [place] [id number] Markus Bailey Self - patient is the insured Medical (General) History Medical History History ICD Code Arthritis Back,Hip,and Knee pain Heart disease High Blood Pressure Poor circulation Stroke Kidney disease Chicken pox Joint implants/screws
--- OUTSIDE RECORDS SUMMARY | 2024-04-30 15:18 | XMS_ITS ---
Author Organization [facility] Address [address] [place] [address] Care Team Providers Care Toucher Up Name Role Phone Idalia Beckman Primary Care Provid er Unavailable Lee Ann Gaffney Unavailable [phone] REASON FOR VISIT Ammonium Lactate (12 % Cream) Medications Medication SIG (Take, Route, Fr equency, Duration) Notes Start Date End Date Status Ammonium Lactate 12 % 1 application Exte rnally to affected areas of dry skin to feet except for between the toes Twice a day for 30 days Act neyda Encounters Encounter Location Date Provider Diagnosis [address] [address] 03/10/2024 Lee Ann Gaffney Xerosis of skin L85.3 Assessments Encounter Date Diagnosis (ICD Code) Assessment Notes Treatment Notes Treatment Clinical Notes Section Notes 03/10/2024 Xerosis of skin (ICD-10 - L85.3) Plan Of Treatment Medication Medication Name Sig Start Date Stop Date Notes Ammonium Lactate 12 % 1 application Exte rnally to affected areas of dry skin to feet except for between the toes Twice a day for 30 days Next Appt Details Provider Name:Lee Ann thorpe, 07/15/2024 01:30:00 PM, [address] [place] [address], [phone], Progress Notes * Maynor BAILEYnicioDOB: [birth year] (83 yo M)Acc No.[id number]:03/10/2024 Patient:Markus WHELAN :1940???Age:83 Y???Sex:Male Address:[address] [place] [address] [place] [address] * Refills? Refill Ammonium Lactate Cream, 12 %, Externally to affected areas of dry skin to feet except for between the toes, 140, 1 application, Twice a day, 30 days, Refills=2 * true * Date:? Generated for Miles camacho/Hira/eTransmitting on:?04/30/2024 03:17 PM EST
[2024-05-05 15:09] LABS: IgA 500 mg/dL (70-320); IgG 1496 mg/dL (600-1540); IgM 143 mg/dL (50-300)
== END 2024-04-30 11:24 | disposition home or self-care (01) ==
LOC: HO.10HDL 11:23
PROVIDERS: Visit Provider Internal Medicine Nephrology
DX: Z13.1 Encounter for screening for diabetes mellitus (principal); N18.30 Chronic kidney disease, stage 3 unspecified
CPT/HCPCS: 36415; 80051; 82306; 82310; 82565; 82784; 83036; 83970; 84100; 84520; 85025; 86334

== ENCOUNTER 2024-05-01 14:48 | Outpatient (REF) | payer OTHER, SELFPAY ==
--- OUTSIDE RECORDS SUMMARY | 2024-05-01 14:51 | XMS_ITS | Clinical Summary ---
Author Organization [employer] it Address [address] [place] [address] Care Team Providers Care Concrete Stone Finisher Name Role Phone JasonIdalia delcid DO Primary Care Pro vider Surgical History Surgery Date Site/Laterality Comments CHOLECYSTECTOMY PROCEDURE: HISTORICAL CHOLECYSTECTOMY; COMMENT: ? removal or stent COLONOSCOPY 11/21/2016 PROCEDURE: HISTORICAL COLONOSCOPY; COMMENT: tubular adenoma OTHER SURGICAL HISTORY 04/17/2022 PROCEDURE: [place] SLCTV CATHJ 3RD+ ORD SLCTV ABDL PEL/LXTR [...] RCA stenting and re stenting 2008 Old [place] (myocardial infarction) D X:Old [place] (myocardial infarction) Diabetes type 2, controlled (CMS/HCC) DX:Diabetes type 2, controlled (HCC) Anemia 04/06/2014 DX:Anemia Peripheral neuropathy 04/06/2014 DX:Periphe ral neuropathy Tubular adenoma of colon 04/06/2014 DX:Tubu lar adenoma of colon; COMMENT: 2010 GERD (gastroesophageal reflux disease) 5 DX:GERD (gastroesophageal reflux disease) Low back pain 04/06/2014 DX:Low back pain Cholelithiases 04/06/2014 DX:Cholelithiase s Type 2 diabetes mellitus wit h neurological manifestations, controlled ([facility]) DX:Type 2 diabetes mellitus with neurological manifestations, controlled ([facility]) Tobacco use DX:Tobacco use Cerebrovascular accident (CV A) within last 3 months DX:Cerebrovascular accident (CVA) within last 3 months Choledocholithiasis 04/06/2014 DX:Choledoch olithiasis; COMMENT: 12/31/13 DM (diabetes mellitus), type 2 with peripheral vascular complications ([facility]) 02/01/2021 DX:DM (diabetes mellitus), t ype 2 with peripheral vascular complications ([facility]) Urinary retention DX:Urinary ret ention Aspiration pneumonia ([facility]) D X:Aspiration pneumonia ([facility]) LEE (acute kidney injury) ([facility]) DX:LEE (acute kidney injury) ([facility]) Type 2 diabetes mellitus wit hout complication, unspecified whether jail insulin use ([facility]) DX:Type 2 diabetes mellitus without complication, unspecified whether jail insulin use ([facility]) Chronic pain syndrome DX:Chronic pain syndrome Dementia ([facility]) DX:Dementia ( [facility]) Social History Tobacco Use Types Packs/Day Years [...] EDURES from Last 3 Months Care Teams Concrete Stone Finisher Relationship Specialty Start Date End Date Idalia Richey DO PCP - General Internal Medicine 02/03/14
[2024-05-01 15:47] LABS: Creatinine Urine 120.02 mg/dL; Protein/Creatinine Ratio, Ur 0.17 (<0.2); Total Protein Urine Random 20 mg/dL (<12)
== END 2024-05-01 14:49 | disposition home or self-care (01) ==
LOC: HO.LNP 14:48
PROVIDERS: Visit Provider Internal Medicine Nephrology
DX: N18.30 Chronic kidney disease, stage 3 unspecified (principal)
CPT/HCPCS: 82570; 84156

== ENCOUNTER 2024-05-20 10:08 | Outpatient (AMB) | payer OTHER, SELFPAY ==
--- NOTE | 2024-05-20 10:14 | HO.NEPHOV_ITS ---
Vital Signs 05/20/24 10:16 Height 5 ft 9 in Weight 131 lb 6 oz BMI 19.4 BP 138/82 Blood Pressure Location Rt brachial Position Sitting Intake Visit Reasons: 3mon follow up-Conf Supervisor Weaving Required: Yes Supervisor Weaving Language: Journalism Intern Services: Supervisor Weaving Offered & Declined ([facility] [place] refused. Pt accompanied by daughter in law. ) Accompanied by: Other Relationship Allergies morphine [MORPHINE] Allergy (Intermediate, Verified 05/20/24 10:14) RASH, ITCHING NSAIDS (Non-Steroidal Anti-Inflamma [NSAIDS (NON-STEROIDAL ANTI-INFLAMMA] Allergy (Unknown, Verified 05/20/24 10:14) UNKNOWN pregabalin [From Lyrica] Allergy (Verified 05/20/24 10:14) Unknown ibuprofen [From MOTRIN] Adverse Reaction (Unknown, Verified 05/20/24 10:14) NAUSEA HPI Comments Details: Mr. Bailey was for CKD and hypertension. He is a known diabetic with history of myocardial infarction, CVA and peripheral arterial disease. He has longstanding peripheral neuropathy. He does not have any active lower extremity ulcers and gangrene. He continues to be a smoker. His serum creatinine in July 2023 was 1.07. He denies any chest pain, shortness of, proximal nocturnal dyspnea, orthopnea, hematuria, recurrent urinary infection, nephrolithiasis, joint pain, sinusitis, new skin rashes, photosensitivity, epistaxis or excessive nonsteroidal anti-inflammatory medication intake. Imaging done in the past had shown right renal artery showing very little flow with an atrophic appearing right kidney. 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 He had failed revascularization for his peripheral arterial disease. [facility] Medical History (Updated 02/11/24 @ 13:12 by Ayad Byrne MD) Unintentional weight loss Secondary hypercoagulable state CAD (coronary artery disease) Renal artery injury Atrial fibrillation Renal infarct Peripheral arterial disease Facial droop CVA (cerebral vascular accident) Pulmonary emphysema Lung nodule, multiple Tobacco use Low back pain GERD (gastroesophageal reflux disease) Tubular adenoma of colon Peripheral neuropathy Anemia Old [place] (myocardial infarction) Type 2 diabetes mellitus with neurological manifestations, controlled Essential (primary) hypertension Hyperlipidemia BPH (benign prostatic hyperplasia) Surgical History H/O colonoscopy History of cholecystectomy History of revascularization procedure of lower extremity Social History Alcohol intake: never Patient Tobacco Use Status: Current everyday Tobacco user Review of Systems Const All systems reviewed & are unremarkable except as noted in HPI and below Physical Exam Vital Signs: Last Vital Signs BP 138/82 05/20/24 10:16 BMI result Body Mass Index 19.4 Const General: comfortable and no acute distress Orientation/consciousness: patient oriented x3 HEENT Head: Yes normocephalic Mouth: Normal oral and palatal mucosa present Eyes EOM: EOMs intact bilaterally Neck Neck: Yes supple Resp Auscultation: clear to auscultation bilaterally Cardio Jugular venous distension: no JVD Rate: regular rate GI Palpation (GI): Soft to palpation Auscultation: normal bowel sounds General: Yes no CVA tenderness Back/Spine/Pelvis Back: no CVA tenderness Skin General skin exam: no rashes or lesions noted Neuro General: patient oriented x3 and moves all extremities Extrem General: Yes no pedal edema Results Reviewed Nephrology Results: Hgb 13.5 g/dl (14.0-18.0) L 04/30/24 WBC 8.3 X10*3/uL (4.8-10.8) 04/30/24 Plt Count 222 X10*3/uL (160-400) 04/30/24 Sodium 142 mmol/L (135-145) 04/30/24 Potassium 3.4 mmol/L (3.3-5.1) 04/30/24 Chloride 110 mmol/L (96-108) H 04/30/24 Carbon Dioxide 26 mmol/L (22-29) 04/30/24 BUN 16 mg/dL (9-16) 04/30/24 Creatinine 0.82 mg/dL (0.5-1.4) 04/30/24 Calcium 9.0 mg/dL (8.4-10.2) 04/30/24 Phosphorus 3.1 mg/dL (2.7-4.5) 04/30/24 PTH Intact 53.4 pg/mL (8.7-77.1) 04/30/24 Urine Creatinine 120.02 mg/dL 05/01/24 Protein/Creatinin Ratio 0.17 (<0.2) 05/01/24 Assessment & Plan Assessment & Plan (1) CKD (chronic kidney disease) stage 3, GFR 30-59 ml/min: Code(s): N18.30 - Chronic kidney disease, stage 3 unspecified Category: Medical Qualifiers: Chronic kidney disease stage 3 subtype: stage 3a (GFR 45-59) Qualified Code(s): N18.31 - Chronic kidney disease, stage 3a (2) Hypertension: Code(s): I10 - Essential (primary) hypertension Category: Medical Qualifiers: Hypertension type: renovascular hypertension Qualified Code(s): I15.0 - Renovascular hypertension Plan Mr. 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 His last serum creatinine is close to baseline. His blood pressure is at goal. He is tolerating ARB. He is on statins and Plavix as well as Xarelto . He takes Flomax for prostatic symptoms. He will be a great candidate for SGLT2 inhibitor. He avoids nonsteroidal anti-inflammatories and maintain good hydration. Follow-up lab work ordered. Orders: Orders Calcium 6 Months I15.0 - Renovascular hypertension, N18.31 - Chronic kidney disease, stage 3a Creatinine 6 Months I15.0 - Renovascular hypertension, N18.31 - Chronic kidney disease, stage 3a Blood Urea Nitrogen 6 Months I15.0 - Renovascular hypertension, N18.31 - Data Analyst Report Writer ernie kidney disease, stage 3a Electrolytes 6 Months I15.0 - Renovascular hypertension, N18.31 - Chronic kidney disease, stage 3a Coding Level of Care Code Est Pt Level 4 (26415) Diagnoses Stage 3a chronic kidney disease N18.31 Chronic kidney disease stage 3 subtype: stage 3a (GFR 45-59) Renovascular hypertension I15.0 Hypertension type: renovascular hypertension
[2024-05-20 10:16] VITALS: BP 138/82; BMI 19.4
--- OUTSIDE RECORDS SUMMARY | 2024-05-20 10:37 | XMS_ITS ---
Author Organization [facility] Address [address] [place] [address] Care Team Providers Care Director Of Parks And Recreation Name Role Phone Idalia Beckman Primary Care Provid er Unavailable Lee Ann Gaffney Unavailable [phone] REASON FOR VISIT Ammonium Lactate (12 % Cream) Medications Medication SIG (Take, Route, Fr equency, Duration) Notes Start Date End Date Status Ammonium Lactate 12 % 1 application Exte rnally to affected areas of dry skin to feet except for between the toes Twice a day for 30 days Act neyda Encounters Encounter Location Date Provider Diagnosis [address] [address] 03/10/2024 Lee Ann Gaffney Xerosis of skin [...] Provider Name:Lee Ann thorpe, 07/15/2024 01:30:00 PM, [address] [place] [address], [phone], Progress Notes * Maynor BAILEYnicioDOB: [birth year] (83 yo M)Acc No.[id number]:03/10/2024 Patient:Markus WHELAN :1940???Age:83 Y???Sex:Male Address:[address] [place] [address] [place] [address] * Refills? Refill Ammonium Lactate Cream, 12 %, Externally to affected areas of dry skin to feet except for between the toes, 140, 1 application, Twice a day, 30 days, Refills=2 * true * Date:? Generated for Miles camacho/Hira/eTransmitting on:?05/20/2024 10:37 AM EST
--- OUTSIDE RECORDS SUMMARY | 2024-05-20 10:37 | XMS_ITS | Encounter Summary ---
Author Organization [facility] Address [address] [place] [address] Care Team Providers Care Kitchen Hand Name Role Phone Idalia Beckman DO Primary Care Pro vider Unavailable Ulises Solorio MD Unavailable Alonzo Helms DO Primary Care Provider Leonor Ela Bain MD Primary Care Provider [phone] Idalia Beckman DO Primary Care Pro vider Unavailable [facility], Pcp [facility] Idalia Beckman DO Primary Care Pro vider Unavailable Jada Galeano NP Unavailable [phone] Encounter Details Date Type Department Care Team Description 01/13/2016 Release of Information Medical Records [address] [place] [id number] Abstract, Provider Social History Tobacco Use Types Packs/Day Years Used Date Smoking Tobacco: Every Day Cigarettes 0.3 Comments:3 cigs per day Alcohol Use Standard Drinks/Week Comments Not Asked 0 (1 standard drink = 0.6 oz pur e alcohol) Sex Assigned at Date Recorded Not on file Job Start Date Occupation Industry Not on file Not on file Not on file documented as of this encounter Plan of Treatment Not on file documented as of this encounter Visit Diagnoses Not on filedocumented in this encounter Care Teams Kitchen Hand Relationship Specialty Start Date End Date Idalia Beckman DO PCP - General Internal Medicine 06/08/14 09/28/20 Alonzo Helms DO PCP - General Internal Medicine 09/29/20 1 Ela Velazco MD [address] [place] [address] PCP - General Internal Medicine 12/28/20 06/25/21 Idalia Beckman DO PCP - General Internal Medicine 06/26/21 07/06/21 [facility], Pcp [address] [place], [place] [id number] PCP - General Internal Medicine 07/07/21 01/28/22 Idalia Beckman DO PCP - General Internal Medicine 01/29/22 Ulises Solorio MD Dental Intern Cardiovascular Disease 09/12/20 Jada Galeano NP [address] [place] [address] Cardiology 08/14/23 documented as of this encounter
--- OUTSIDE RECORDS SUMMARY | 2024-05-20 10:38 | XMS_ITS | Encounter Summary ---
Author Organization Formerly [facility] Address [address] [place] [address] Care Team Providers Care Mincing Machine Operator Name Role Phone Valentinkoriana Colasacco, Idalia DO Primary Care Pro vider Unavailable Tova Emmanuel Primary Care Provider Unavailabl e [place] Colasacco, Idalia DO Primary Care Pro vider Unavailable Ulises Solorio MD Unavailable Alonzo Helms DO Primary Care Provider Leonor Ela Bain MD Primary Care Provider [phone] [place] Colasacco, Idalia DO Primary Care Pro vider Unavailable [facility], [facility] Primary Care Provider Unavailabl e [place] Colasacco, Idalia DO Primary Care Pro vider Unavailable Jada Galeano NP Unavailable [phone] Encounter Details Date Type Department Care Team Description 01/17/2014 Hospital Medical Records [address] [place] [address] Mika Casillas Social History Tobacco Use Types Packs/Day Years Used Date Smoking Tobacco: Former Cigarettes 0.3 1 950 - 05/02/2023 Smokeless Tobacco: Never Comments:3 cigs per day Alcohol Use Standard Drinks/Week Comments No 0 [...] on filedocumented in this encounter Care Teams Mincing Machine Operator Relationship Specialty Start Date End Date Idalia Beckman DO PCP - General Internal Medicine 02/03/14 05/29/14 Tova Emmanuel PCP - General Family Practice 05/30/14 06/07/14 Idalia Beckman DO PCP - General Internal Medicine 06/08/14 09/28/20 Alonzo Helms DO PCP - General Internal Medicine 09/29/20 1 Ela Velazco MD [address] [place] [address] PCP - General Internal Medicine 12/28/20 06/25/21 Idalia Beckman DO PCP - General Internal Medicine 06/26/21 07/06/21 [facility], Pcp [address] [place] [address] PCP - General Internal Medicine 07/07/21 01/28/22 Idalia Beckman DO PCP - General Internal Medicine 01/29/22 Ulises Solorio MD Executive Administrator Cardiovascular Disease 09/12/20 Jada Galeano, REENA [address] [place] [address] Cardiology 08/14/23 documented as of this encounter
--- OUTSIDE RECORDS SUMMARY | 2024-05-20 10:38 | XMS_ITS | Patient Health Record ---
Author Organization [facility] Address [address] [place] [address] Care Team Providers Care Thread Cutter Name Role Phone Idalia Beckman Primary Care Provid er Unavailable Gulshan Lee Ann Unavailable [phone] Allergies Allergen (clinical drug ingredient) Drug/Non Drug [...] W/U Status Risk Notes Problem Atherosclerosis of bad river band artery of both lower extremities, with unspecified presence of clinical manifestation (I70.203) Active confirmed Q7(A), Q8(2B), Q9(1B,2C) Vital Signs Height 5 ft 9inch in 03/02/2024 Weight 128 lbs 03/02/2024 BMI 18.9 kg/m2 03/02/2024 Procedures Procedure Date Ordered Date Performed Result Body Sit e 32444-YTWFXTM NAIL, 6 OR MORE 03/02/2024 N/A 97156-VOOQ SKIN LESIONS, 2 TO 4 03/02/2024 N/A Encounters Encounter Location Date Provider Diagnosis [address] [address] 03/02/2024 Lee Annalejandra Gaffney Atherosclerosis of bad river band artery of both lower extremities, with unspecified presence of clinical manifestation I70.203 ; Tinea unguium B35.1 ; Pain in right toe(s) M79.674 ; Pain in left toe(s) M79.675 and Xerosis of skin L85.[address] [address] 01/16/2024 [facility] [address] [facility] [address] [place] [address] 02/19/[address] [address] 03/10/2024 Lee Ann Gaffney Xerosis of skin L85.3 Assessments Encounter Date Diagnosis (ICD Code) Assessment Notes Treatment Notes Treatment Clinical Notes Section Notes 03/02/2024 Atherosclerosis of bad river band artery of both lower extremities, with unspecified presence of clinical manifestation (ICD-10 - I70.203) Q7(A), Q8(2B), Q9(1B,2C) 03/10/2024 Xerosis of skin (ICD-10 - L85.3) 03/02/2024 Tinea unguium (ICD-10 - B35.1) 03/02/2024 Pain in right toe(s) (ICD-10 - M79.674) 03/02/2024 Pain in left toe(s) (ICD-10 - M79.675) 03/02/2024 Xerosis of skin (ICD-10 - L85.3) Plan Of Treatment Pending Test Test Name Order Date [id number]-FARNFAP NAIL, 6 OR MORE 03/02/2024 48291-AGLF SKIN LESIONS, 2 TO 4 03/02/20 24 Next Appt Details Provider Name:Lee Ann thorpe, 07/15/2024 01:30:00 PM, [address] [place], [address], Insurance Providers Payer Name Payer Address Payer Phone Subscriber Number Group Number Insured Name Patient Relationship to Insured Coverage Start Date Coverage End Date [facility] Adv [address] [place] [id number] Markus Bailey Self - patient is the insured Medical (General) History Medical History History ICD Code Arthritis Back,Hip,and Knee pain Heart disease High Blood Pressure Poor circulation Stroke Kidney disease Chicken pox Joint implants/screws
--- OUTSIDE RECORDS SUMMARY | 2024-05-20 10:38 | XMS_ITS | Encounter Summary ---
Author Organization [facility] Address [address] [place] [address] Care Team Providers Care Quality Control Engineer Name Role Phone Idalia Beckman DO Primary Care Pro vider Unavailable Ulises Solorio MD Unavailable Alonzo Helms DO Primary Care Provider Leonor Ela Bain MD Primary Care Provider [phone] Idalia Beckman DO Primary Care Pro vider Unavailable [facility], Pcp Primary Care [facility] Idalia Beckman DO Primary Care Pro vider Unavailable Jada Galeano NP Unavailable [phone] Encounter Details Date Type Department Care Team Description 06/09/2018 Orders Only Adult Medicine [address] [id number] Idalia Beckman DO Dyslipidemia (Primary Dx); B12 deficiency Social History Tobacco Use Types Packs/Day Years Used Date Smoking Tobacco: Every Day Cigarettes 0.1 Started: 1950 Smokeless Tobacco: Never Comments:3 cigs per day Alcohol Use Standard Drinks/Week Comments No 0 (1 standard drink = 0.6 oz pur e alcohol) Sex Assigned at Date Recorded Not on file Job Start Date Occupation Industry Not on file Not on file Not on file documented as of this encounter Plan of Treatment Not on file documented as of this encounter Visit Diagnoses Diagnosis Dyslipidemia- Primary Other and unspecified hyperlipidemia B12 deficiency Other B-complex deficiencies documented in this encounter Care Teams Quality Control Engineer Relationship Specialty Start Date End Date Idalia Beckman DO PCP - General Internal Medicine 06/08/14 09/28/20 Alonzo Helms DO PCP - General Internal Medicine 09/29/20 1 Ela Velazco MD [address] [place] [address] PCP - General Internal Medicine 12/28/20 06/25/21 Idalia Beckman DO PCP - General Internal Medicine 06/26/21 07/06/21 [facility], [address] [address] PCP - General Internal Medicine 07/07/21 01/28/22 Idalia Beckman DO PCP - General Internal Medicine 01/29/22 Ulises Solorio MD City Planning Engineer Cardiovascular Disease 09/12/20 Jada Galeano NP [address] [place] [address] Cardiology 08/14/23 documented as of this encounter
--- OUTSIDE RECORDS SUMMARY | 2024-05-20 10:38 | XMS_ITS | Encounter Summary ---
Author Organization [facility] Address [address] [place] [address] Care Team Providers Care Butadiene Compressor Operator Name Role Phone Fauzia Colchinoo, Idalia DO Primary Care Pro vider Unavailable Tova Emmanuel Primary Care Provider Unavailabl e [place] Colasacco, Idalia DO Primary Care Pro vider Unavailable Ulises Solorio MD Unavailable Alonzo Helms DO Primary Care Provider Leonor Ela Bain MD Primary Care Provider [phone] [place] Colasacco, Idalia DO Primary Care Pro vider Unavailable [facility], [facility] Primary Care Provider Unavailabl e [place] Colasacco, Idalia DO Primary Care Pro vider Unavailable Jada Galeano NP Unavailable [phone] Encounter Details Date Type Department Care Team Description 01/17/2014 Hospital Medical Records [address] [place] [address] Social History Tobacco Use Types Packs/Day Years [...] on filedocumented in this encounter Care Teams Butadiene Compressor Operator Relationship Specialty Start Date End Date Idalia Beckman DO PCP - General Internal Medicine 02/03/14 05/29/14 Tova Emmanuel PCP - General Family Practice 05/30/14 06/07/14 Idalia Beckman, PCP - General Internal Medicine 06/08/14 09/28/20 Alonzo Helms DO PCP - General Internal Medicine 09/29/20 1 Ela Velazco MD [address] [place] [address] PCP - General Internal Medicine 12/28/20 06/25/21 Idalia Beckman DO PCP - General Internal Medicine 06/26/21 07/06/21 [facility], Pcp [address] [place] [address] PCP - General Internal Medicine 07/07/21 01/28/22 Idalia Beckman DO PCP - General Internal Medicine 01/29/22 Ulises Solorio MD Edge Grinder Cardiovascular Disease 09/12/20 Jada Galeano NP [address] [place] [address] Cardiology 08/14/23 documented as of this encounter
--- OUTSIDE RECORDS SUMMARY | 2024-05-20 10:38 | XMS_ITS | Encounter Summary ---
Author Organization [facility] Address [address] [place] [address] Care Team Providers Care Canvas Shop Laborer Name Role Phone Ty Beckmanabela DO Primary Care Pro vider Unavailable Ulises Solorio MD Unavailable Alonzo Helms DO Primary Care Provider Leonor Ela Bain MD Primary Care Provider [phone] Fauzia Colasacco, Idalia DO Primary Care Pro vider Unavailable [facility], [facility]cp [facility] Fauzia Colasacco, Idalia DO Primary Care Pro vider Unavailable Jada Galeano NP Unavailable [phone] Encounter Details Date Type Department Care Team Description 10/11/2015 Telephone Cardiology - [address] [phone] Ulises Solorio MD [address] [place] [address] [id number] Social History Tobacco Use Types Packs/Day Years Used Date Smoking Tobacco: Every Day Cigarettes 0.3 Comments:3 cigs per day Alcohol Use Standard Drinks/Week Comments Not Asked 0 (1 standard drink = 0.6 oz pur e alcohol) Sex Assigned at Date Recorded Not on file Job Start Date Occupation Industry Not on file Not on file Not on file documented as of this encounter Miscellaneous Notes * Telephone Encounter - Ulises Solorio MD - 10/11/2015 1:59 PM EDT I'm asked to give preoperative clearance for maxillary extraction with IV sedation. This gentleman was seen for preoperative clearance on August 31. He has a long history of coronary artery disease. Hislast catheterization was in December 2013 for recurrent chest pain. Pharmacologic MIBI showed anteroseptal and apical ischemia. Cath demonstrated a 99% LAD lesion. There is a chronic total occlusion of the obtuse marginal branch #1 from the circumflex and the RCA showed mild luminal irregularities. He had a drug-eluting stent. Echo in December 2013 showed a 65% ejection fraction. When he was here on August 31 he was free of chest pain or shortness of breath with rest or exertion. He has a difficult time climbing stairs. Her nurse practitioner ordered a Lexiscan nuclear stress test. This was done because his exercise capacity is poor and his EKG looks slightly different. The EKG shows LVH with QRS widening and lateral T-wave inversions. In my mind this is not really any different from March 2015. His Lexiscan test showed ischemia in the distribution of the occluded circumflex obtuse marginal branch. That is in the inferolateral region. There was no longer any LAD ischemia. This coupled with the lack of symptoms makes me feel it is safe to proceed with the dental procedure under heavy sedation. I understand that his aspirin and Plavix will continue. I think it is a good idea to do that if at all possible. But since the stenting was back in December 2013 one or both of the drugs couldbe held if necessary. documented in this encounter Plan of Treatment Not on file documented as of this encounter Visit Diagnoses Not on filedocumented in this encounter Care Teams Canvas Shop Laborer Relationship Specialty Start Date End Date Idalia Beckman DO PCP - General Internal Medicine 06/08/14 09/28/20 Alonzo Helms DO PCP - General Internal Medicine 09/29/20 1 Ela Velazco MD [address] [place] [address] PCP - General Internal Medicine 12/28/20 06/25/21 Idalia Beckman DO PCP - General Internal Medicine 06/26/21 07/06/21 [facility] Pcp [address] [place] [address] PCP - General Internal Medicine 07/07/21 01/28/22 Idalia Beckman DO PCP - General Internal Medicine 01/29/22 Ulises Solorio MD Wrapper Opener Cardiovascular Disease 09/12/20 Jada Galeano, REENA [address] [place] [address] Cardiology 08/14/23 documented as of this encounter
--- OUTSIDE RECORDS SUMMARY | 2024-05-20 10:38 | XMS_ITS | Encounter Summary ---
Author Organization [facility] Address [address] [place] [address] Care Team Providers Care A And P Mechanic Name Role Phone Idalia Beckman DO Primary Care Pro vider Unavailable Ulises Solorio MD Unavailable Alonzo Helms DO Primary Care Provider Leonor Ela Bain MD Primary Care Provider [phone] Idalia Beckman DO Primary Care Pro vider Unavailable [facility], Pcp Primary Care Provider [facility] Ty Beckmanabela DO Primary Care Pro vider Unavailable Jada Galeano NP Unavailable [phone] Reason for Visit * Reason Onset Date Comments refill request 06/02/2018 Encounter Details Date Type Department Care Team Description 06/02/2018 Refill Adult Medicine [address] [address] Idalia Beckman DO refill request Social History Tobacco Use Types Packs/Day Years [...] encounter Miscellaneous Notes * Telephone Encounter - La Martínez M.A. - 06/02/2018 11:55 AM EST Last fill 05/05 Controlled substance contract and last issue date of medication reviewed. Patient is due for medication. Lab Results Component Value Date URINEOXYCOD POSITIVE 08/28/2017 URBENZO NEGATIVE 08/28/2017 URAMPHETAMIN NEGATIVE 08/28/2017 URMARIJUANA NEGATIVE 08/28/2017 UROPIATES NEGATIVE 08/28/2017 URBARBITUATE NEGATIVE 08/28/2017 URCOCAINE NEGATIVE 08/28/2017 HYDROCODONE Negative 05/09/2016 Mass pat printed and in providers bin for review * Telephone Encounter - Cristiana Castaneda - 06/02/2018 10:49 AM EST Patient would like script to be: PLACED IN PATIENT ATMOSPHERIC SCIENCES PROFESSOR TO BE PICKED UP BY WHEN WAS THE PATIENT'S LAST APPOINTMENT IN ADULT MEDICINE? 05/30/2018 WHEN WAS THE LAST TIME THE PATIENT SAW THEIR PCP? Same as above Does patient have an upcoming appointment? No-unable to reach left the [facility] to call for appointment due to refill request. Appt due (THE MEDICATION REQUESTED IS ON THE MED LIST ABOVE) All of the medications requested were on the CURRENT MEDS list Did you check the Pharmacy information above?: NO Patient wants: 30 -day supply Is this a mail order prescription request ? NO If the refill is from a FAXED refill request what is the RX # listed on the fax? N/A Patients current insurance carrier is: Payor: [employer]EL[employer] / Plan: Crowd Fusion[employer] $0 [id number] / Product Type: HMO [id number] documented in this encounter Plan of Treatment Not on file documented as of this encounter Visit Diagnoses Not on filedocumented in this encounter Care Teams A And P Mechanic Relationship Specialty Start Date End Date Idalia Beckman DO PCP - General Internal Medicine 06/08/14 09/28/20 Alonzo Helms DO PCP - General Internal Medicine 09/29/20 1 Ela Velazco MD [address] [place] [address] PCP - General Internal Medicine 12/28/20 06/25/21 Idalia Beckman DO PCP - General Internal Medicine 06/26/21 07/06/21 [facility], Pcp [address] [place] [address] PCP - General Internal Medicine 07/07/21 01/28/22 Idalia Beckman DO PCP - General Internal Medicine 01/29/22 Ulises Solorio MD Environmental Technology Professor Cardiovascular Disease 09/12/20 Jada Galeano NP [address] [place] [address] Cardiology 08/14/23 documented as of this encounter
--- OUTSIDE RECORDS SUMMARY | 2024-05-20 10:38 | XMS_ITS | Encounter Summary ---
Author Organization [facility] Address [address] [place] [address] Care Team Providers Care Cash Room Clerk Name Role Phone Idalia Beckman DO Primary Care Pro vider Unavailable Ulises Solorio MD Unavailable Alonzo Helms DO Primary Care Provider Leonor Ela Bain MD Primary Care Provider [phone] Idalia Beckman DO Primary Care Pro vider Unavailable [facility], Pcp Primary Care Provider [facility] Idalia Beckman DO Primary Care Pro vider Unavailable Jada Galeano NP Unavailable [phone] Encounter Details Date Type Department Care Team Description 12/24/2016 Hospital Medical Records [address] [place] [address] Emili Huang NP Social History Tobacco Use Types Packs/Day Years [...] on filedocumented in this encounter Care Teams Cash Room Clerk Relationship Specialty Start Date End Date Idalia Beckman DO PCP - General Internal Medicine 06/08/14 09/28/20 Alonzo Helms DO PCP - General Internal Medicine 09/29/20 1 Ela Velazco MD [address] [place] [address] PCP - General Internal Medicine 12/28/20 06/25/21 Idalia Beckman DO PCP - General Internal Medicine 06/26/21 07/06/21 [facility], Pcp [address] [place] [address] PCP - General Internal Medicine 07/07/21 01/28/22 Idalia Beckman DO PCP - General Internal Medicine 01/29/22 Ulises Solorio MD Food Technologist Cardiovascular Disease 09/12/20 Jada Galeano, REENA [address] [place] [address] Cardiology 08/14/23 documented as of this encounter
--- OUTSIDE RECORDS SUMMARY | 2024-05-20 10:38 | XMS_ITS | Encounter Summary ---
Author Organization [facility] Address [address] [place] [address] Care Team Providers Care Dock Pumper Name Role Phone Idalia Beckman DO Primary Care Pro vider Unavailable Tova Emmanuel Primary Care Provider Unavailabl e [place] Colasacco, Idalia DO Primary Care Pro vider Unavailable Ulises Solorio MD Unavailable Alonzo Helms DO Primary Care Provider Leonor Ela Bain MD Primary Care Provider [phone] [place] Colasacco, Idalia DO Primary Care Pro vider Unavailable [facility], [facility] Primary Care Provider Unavailabl e [place] Colasacco, Idalia DO Primary Care Pro vider Unavailable Jada Galeano NP Unavailable [phone] Encounter Details Date Type Department Care Team Description 04/12/2014 Controlled Substance Contract with [facility] Medical Records [address] [place] [address] Abstract, Provider Social History Tobacco Use Types Packs/Day Years Used Date Smoking Tobacco: Every Day Cigarettes 0.3 Alcohol Use Standard Drinks/Week Comments Not Asked [...] on filedocumented in this encounter Care Teams Dock Pumper Relationship Specialty Start Date End Date [place] Colasacco, Idalia, DO PCP - General Internal Medicine 02/03/14 05/29/14 Tova Emmanuel PCP - General Family Practice 05/30/14 06/07/14 Idalia Beckman, DO PCP - General Internal Medicine 06/08/14 09/28/20 Alonzo Helms, DO PCP - General Internal Medicine 09/29/20 1 Ela Velazco MD [address] [place] [address] PCP - General Internal Medicine 12/28/20 06/25/21 Idalia Beckman, DO PCP - General Internal Medicine 06/26/21 07/06/21 [facility], Pcp [address] [place] [address] PCP - General Internal Medicine 07/07/21 01/28/22 Idalia Beckman, DO PCP - General Internal Medicine 01/29/22 Ulises Solorio MD Electric Range Servicer Cardiovascular Disease 09/12/20 Jada Galeano, REENA [address] [place] [address] Cardiology 08/14/23 documented as of this encounter
--- OUTSIDE RECORDS SUMMARY | 2024-05-20 10:38 | XMS_ITS | Encounter Summary ---
Author Organization [facility] Address [address] [place] [address] Care Team Providers Care Construction Pit Worker Name Role Phone Idalia Beckman DO Primary Care Pro vider Unavailable Ulises Solorio MD Unavailable Alonzo Helms DO Primary Care Provider Leonor Ela Bain MD Primary Care Provider [phone] Fauzia Trejoo, Idalia DO Primary Care Pro vider Unavailable [facility], Pcp Primary Care Provider [facility] Fauzia Trejoo, Idalia DO Primary Care Pro vider Unavailable Jada Galeano NP Unavailable [phone] Encounter Details Date Type Department Care Team Description 12/20/2016 Hospital Medical Records [address] [place] [address] Eliot Carnes MD [address] [place] [address] Social History Tobacco Use Types Packs/Day Years [...] on filedocumented in this encounter Care Teams Construction Pit Worker Relationship Specialty Start Date End Date Idalia Beckman DO PCP - General Internal Medicine 06/08/14 09/28/20 Alonzo Helms DO PCP - General Internal Medicine 09/29/20 1 Ela Velazco MD [address] [place] [address] PCP - General Internal Medicine 12/28/20 06/25/21 Idalia Beckman DO PCP - General Internal Medicine 06/26/21 07/06/21 [facility], Pcp [address] [place] [address] PCP - General Internal Medicine 07/07/21 01/28/22 Idalia Beckman DO PCP - General Internal Medicine 01/29/22 Ulises Solorio MD Head Men'S Tennis Coach Cardiovascular Disease 09/12/20 Jada Galeano NP [address] [place] [address] Cardiology 08/14/23 documented as of this encounter
--- OUTSIDE RECORDS SUMMARY | 2024-05-20 10:38 | XMS_ITS | Encounter Summary ---
Author Organization [facility] Address [address] [place] [address] Care Team Providers Care Television Technician Name Role Phone Adelaida Beckmanla DO Primary Care Pro vider Unavailable Ulises Solorio MD Unavailable Alonzo Helms DO Primary Care Provider Leonor Ela Bain MD Primary Care Provider [phone] Fauzia Colasajuano, Idalia DO Primary Care Pro vider Unavailable [facility], Pcp Primary Care Provider [facility] Fauzia Colasacco, Idalia DO Primary Care Pro vider Unavailable Jada Galeano NP Unavailable [phone] Encounter Details Date Type Department Care Team Description 07/22/2018 Pattern Clerk Report Medical Records [address] [place] [address] Caitlyn Patel PA-C [address] [place] [phone] Social History Tobacco Use Types Packs/Day Years [...] on filedocumented in this encounter Care Teams Television Technician Relationship Specialty Start Date End Date Idalia Beckman DO PCP - General Internal Medicine 06/08/14 09/28/20 Alonzo Helms DO PCP - General Internal Medicine 09/29/20 1 Ela Velazco MD [address] [place] [address] PCP - General Internal Medicine 12/28/20 06/25/21 Idalia Beckman DO PCP - General Internal Medicine 06/26/21 07/06/21 [facility], [facility], [address] [address] PCP - General Internal Medicine 07/07/21 01/28/22 Idalia Beckman DO PCP - General Internal Medicine 01/29/22 Ulises Solorio MD Peach Grower Cardiovascular Disease 09/12/20 Jada Galeano, REENA [address] [place] [address] Cardiology 08/14/23 documented as of this encounter
--- OUTSIDE RECORDS SUMMARY | 2024-05-20 10:38 | XMS_ITS | Encounter Summary ---
Author Organization [facility] Address [address] [place] [address] Care Team Providers Care Inspector Production Plastic Parts Name Role Phone Idalia Beckman DO Primary Care Pro vider Unavailable Ulises Solorio MD Unavailable Alonzo Helms DO Primary Care Provider Leonor Ela Bain MD Primary Care Provider [phone] Idalia Beckman DO Primary Care Pro vider Unavailable [facility], Pcp Primary Care Provider [facility] Idalia Beckman DO Primary Care Pro vider Unavailable Jada Galeano NP Unavailable [phone] Encounter Details Date Type Department Care Team Description 06/12/2018 Transfer Records Medical Records [address] [place] [address] Abstract, Provider Social History Tobacco Use Types [...] on filedocumented in this encounter Care Teams Inspector Production Plastic Parts Relationship Specialty Start Date End Date Idalia Beckman DO PCP - General Internal Medicine 06/08/14 09/28/20 Alonzo Helms DO PCP - General Internal Medicine 09/29/20 1 Ela Velazco MD [address] [place] [address] PCP - General Internal Medicine 12/28/20 06/25/21 Idalia Beckman DO PCP - General Internal Medicine 06/26/21 07/06/21 [facility], Pcp [address] [place] [address] 8[address]11 PCP - General Internal Medicine 07/07/21 01/28/22 Idalia Beckman DO PCP - General Internal Medicine 01/29/22 Ulises Solorio MD Rolled Seat Trimmer Cardiovascular Disease 09/12/20 Jada Galeano NP [address] [place] [address] Cardiology 08/14/23 documented as of this encounter
--- OUTSIDE RECORDS SUMMARY | 2024-05-20 10:38 | XMS_ITS | Encounter Summary ---
Author Organization [facility] Address [address] [place] [address] Care Team Providers Care Hr Advisor Name Role Phone Idalia Beckman DO Primary Care Pro vider Unavailable Tova Emmanuel Primary Care Provider Unavailabl e Fauzia Colasacco, Idalia DO Primary Care Pro vider Unavailable Ulises Solorio MD Unavailable Alonzo Helms DO Primary Care Provider Ela Dumont MD Primary Care Provider [phone] Krakhushboo Colasacco, Idalia DO Primary Care Pro vider Unavailable [facility], Pcp Primary Care Provider Unavailabl e [place] Colasacco, Idalia DO Primary Care Pro vider Unavailable Jada Galeano NP Unavailable [phone] Reason for Visit * Reason Onset Date Comments Prior Authorization 05/07/2014 Encounter Details Date Type Department Care Team Description 05/07/2014 Telephone Adult [address] [id number] Idalia Beckman DO Prior Authorization Social History Tobacco Use Types Packs/Day Years Used Date Smoking Tobacco: Light Smoker Cigarettes 0.3 Alcohol Use Standard Drinks/Week Comments [...] on filedocumented in this encounter Care Teams Hr Advisor Relationship Specialty Start Date End Date Idalia Beckman DO PCP - General Internal Medicine 02/03/14 05/29/14 Tova Emmanuel PCP - General Family Practice 05/30/14 06/07/14 Idalia Beckman DO PCP - General Internal Medicine 06/08/14 09/28/20 Alonzo Helms DO PCP - General Internal Medicine 09/29/20 1 Ela Velazco MD [address] [place] [address] 19704 PCP - General Internal Medicine 12/28/20 06/25/21 Idalia Beckman DO PCP - General Internal Medicine 06/26/21 07/06/21 [facility], Pcp [address] [place] [address] 01128 PCP - General Internal Medicine 07/07/21 01/28/22 Idalia Beckman DO PCP - General Internal Medicine 01/29/22 Ulises Solorio MD Health Occupations Instructor Cardiovascular Disease 09/12/20 Jada Galeano NP [address] [place] [address] 39464 Cardiology 08/14/23 documented as of this encounter
--- OUTSIDE RECORDS SUMMARY | 2024-05-20 10:38 | XMS_ITS | Encounter Summary ---
Author Organization [facility] Address [address] [place] [address] Care Team Providers Care Jamb Cutter Name Role Phone Idalia Beckman DO Primary Care Pro vider Unavailable Ulises Solorio MD Unavailable Alonzo Helms DO Primary Care Provider Leonor Ela Bain MD Primary Care Provider [phone] Idalia Beckman DO Primary Care Pro vider Unavailable [facility], Pcp [facility] Idalia Beckman DO Primary Care Pro vider Unavailable Jada Galeano NP Unavailable [phone] Encounter Details Date Type Department Care Team Description 09/18/2016 [facility] Medical Records [address] [place] [address] Abstract, Provider Social History Tobacco Use Types [...] on filedocumented in this encounter Care Teams Jamb Cutter Relationship Specialty Start Date End Date Idalia Beckman DO PCP - General Internal Medicine 06/08/14 09/28/20 Alonzo Helms DO PCP - General Internal Medicine 09/29/20 1 Ela Velazco MD [address] [place] [address] PCP - General Internal Medicine 12/28/20 06/25/21 Idalia Beckman DO PCP - General Internal Medicine 06/26/21 07/06/21 [facility], Pcp [address] [place], [place] [phone] PCP - General Internal Medicine 07/07/21 01/28/22 Idalia Beckman DO PCP - General Internal Medicine 01/29/22 Ulises Solorio MD Lodging House Keeper Cardiovascular Disease 09/12/20 Jada Galeano NP [address] [place] [address] 23882 Cardiology 08/14/23 documented as of this encounter
--- OUTSIDE RECORDS SUMMARY | 2024-05-20 10:38 | XMS_ITS | Clinical Summary ---
Author Organization [facility] Address [address] [place] [address] Care Team Providers Care Residential Program Manager Name Role Phone JasonIdalia delcid Primary Care Pro vider Medications clopidogreL (PLAVIX) 75 mg tablet TAKE 1 TABLET BY MOUTH DAILY. 28 tablet 6 05/14/2024 Active Surgical History Surgery Date Site/Laterality Comments CHOLECYSTECTOMY PROCEDURE: HISTORICAL CHOLECYSTECTOMY; COMMENT: ? removal or stent COLONOSCOPY 11/21/2016 PROCEDURE: HISTORICAL COLONOSCOPY; COMMENT: tubular adenoma OTHER SURGICAL HISTORY 04/17/2022 PROCEDURE: [place] SLCTV CATHJ 3RD+ ORD SLCTV ABDL PEL/LXTR [...] RCA stenting and re stenting 2008 [place] (my[place] infarction) D X:[place] (myocardial infarction) Diabetes type 2, controlled (CMS/HCC) DX:Diabetes type 2, controlled (HCC) Anemia 04/06/2014 DX:Anemia Peripheral neuropathy 04/06/2014 DX:Periphe ral neuropathy Tubular adenoma of colon 04/06/2014 DX:Tubu lar adenoma of colon; COMMENT: 2010 GERD (gastroesophageal reflux disease) 01/06/201 5 DX:GERD (gastroesophageal reflux disease) Low back pain 04/06/2014 DX:Low back pain Cholelithiases 04/06/2014 DX:Cholelithiase s Type 2 diabetes mellitus wit h neurological manifestations, controlled ([facility]) DX:Type 2 diabetes mellitus with neurological manifestations, controlled ([facility]) Tobacco use DX:Tobacco use Cerebrovascular accident (CV A) within last 3 months DX:Cerebrovascular accident (CVA) within last 3 months Choledocholithiasis 04/06/2014 DX:Choledoch olithiasis; COMMENT: 12/31/13 DM (diabetes mellitus), type 2 with peripheral vascular complications ([facility]) 02/01/2021 DX:DM (diabetes mellitus), t ype 2 with peripheral vascular complications ([facility]) Urinary retention DX:Urinary ret ention Aspiration pneumonia ([facility]) D X:Aspiration pneumonia ([facility]) LEE (acute kidney injury) ([facility]) DX:LEE (acute kidney injury) ([facility]) Type 2 diabetes mellitus wit hout complication, unspecified whether predatory animal exterminator insulin use ([facility]) DX:Type 2 diabetes mellitus without complication, unspecified whether predatory animal exterminator insulin use ([facility]) Chronic pain syndrome DX:Chronic pain syndrome Dementia ([facility]) DX:Dementia ( [facility]) Social History Tobacco Use Types Packs/Day Years Used Date Smoking Tobacco: Former Cigarettes 0.3 74.1 0 04/01/1949 - 05/02/2023 Smokeless Tobacco: Never Alcohol Use Standard Drinks/Week Comments No 0 (1 standard drink = 0.6 oz pur e alcohol) Sex and Gender Information Value Date Recorded Sex Assigned at Not on file Legal Sex Male 9:24 AM EST Gender Identity Not on file Sexual Orientation [...] 01/23/2019, 12/10/2017, Additional history exists Pneumococcal Vaccine: 50+ Years Completed 02/28/2016, 01/17/2010, 01/14/2002 HIB Vaccines [...] patient's age to complete this topic Meningococcal B Vacine Aged Out No lo nger eligible based on patient's age to complete this topic RSV Immunization Patients Under 20 months Aged Out No longer eligible based on patient's age to complete this topic Varicella Vaccines Aged Out No longer eligible based on patient's age to complete this topic Procedures Procedure Name Priority Date/Time Associated Diagnosis Comments ECHO 02/25/2024 from Last 3 Months Results * Echo (02/25/2024) Anatomical Region Laterality Modality Other us Provider [facility] Onbase CV HISTORICAL CONV PROCE DURES Final Result from Last 3 Months Care Teams Residential Program Manager Relationship Specialty Start Date End Date Idalia Richey DO PCP - General Internal Medicine 02/03/14
--- OUTSIDE RECORDS SUMMARY | 2024-05-20 10:38 | XMS_ITS | Encounter Summary ---
Author Organization [facility] Address [address] [place] [address] Care Team Providers Care Cosmetics Machine Operator Name Role Phone Idalia Beckman DO Primary Care Pro vider Unavailable Ulises Solorio MD Unavailable Alonzo Helms DO Primary Care Provider Leonor Ela Bain MD Primary Care Provider [phone] Idalia Beckman DO Primary Care Pro vider [facility]available [facility]cp Primary [facility] Idalia Beckman DO Primary Care Pro vider Unavailable Jada Galeano NP Unavailable [phone] Encounter Details Date Type Department Care Team Description 05/05/2020 City Bus Driver Report Medical Records [address] [place] [address] Center[facility] [address] [place] [address] Social History Tobacco Use Types Packs/Day Years Used Date Smoking Tobacco: Every Day Cigarettes 0.3 Started: 1950 Smokeless Tobacco: Never Comments:3 cigs [...] on filedocumented in this encounter Care Teams Cosmetics Machine Operator Relationship Specialty Start Date End Date Idalia Beckman DO PCP - General Internal Medicine 06/08/14 09/28/20 Alonzo Helms DO PCP - General Internal Medicine 09/29/20 1 Ela Velazco MD [address] [place] [address] PCP - General Internal Medicine 12/28/20 06/25/21 Idalia Beckman DO PCP - General Internal Medicine 06/26/21 07/06/21 [facility]cp [address] [place] [address] PCP - General Internal Medicine 07/07/21 01/28/22 Idalia Beckman DO PCP - General Internal Medicine 01/29/22 Ulises Solorio MD Mental Health Advanced Practice Nurse Cardiovascular Disease 09/12/20 Jada Galeano NP [address] [place] [address] 399[address] Cardiology 08/14/23 documented as of this encounter
--- OUTSIDE RECORDS SUMMARY | 2024-05-20 10:38 | XMS_ITS ---
Author Organization [facility] Address [address] [place] [address] Care Team Providers Care Director Of Veterans Affairs Name Role Phone Idalia Beckman Primary Care Provid er Unavailable Lee Ann Gaffney [phone] REASON FOR VISIT LENS SHAPER GRINDER PW Encounters Encounter [facility] Date [facility] [address] [facility] Lee Ann Gaffney Plan Of Treatment Next Appt Details Provider Name:Lee Ann thorpe, 07/15/2024 01:30:00 PM, [address] [place], [address], Progress Notes * Ross BAILEYioDOB: [birth year] (83 yo M)Acc No.[id number]:02/19/2024 Patient:?Markus BAILEY :1940???Age:83 Y???Sex:Male Address:[place] [address] * true * Date:? Generated for Miles camacho/Hira/eTransmitting on:?05/20/2024 10:38 AM EST
--- OUTSIDE RECORDS SUMMARY | 2024-05-20 10:38 | XMS_ITS | Encounter Summary ---
Author Organization [facility] Address [address] [place] [address] Care Team Providers Care In File Operator Name Role Phone Idalia Beckman DO Primary Care Pro vider Unavailable Ulises Solorio MD Unavailable Alonzo Helms DO Primary Care Provider Leonor Ela Bain MD Primary Care Provider [phone] Fauzia TrejooTyIdalia DO Primary Care Pro vider Unavailable [facility], Pcp Primary Care Provider Unavailabl e Fauzia TrejooTyIdalia DO Primary Care Pro vider Unavailable Jada Galeano NP Unavailable [phone] Reason for Visit * Reason Onset Date Comments Medication 08/20/2016 Bubbole paks Encounter Details Date Type Department Care Team Description 08/20/2016 Telephone Adult Medicine [address] [phone] Idalia Beckman DO Medication (Bubbole paks) Social History Tobacco Use Types Packs/Day Years [...] encounter Miscellaneous Notes * Telephone Encounter - Deneen Bayron - 08/20/2016 4:34 PM EDT Thank you Carla for looking into this , and I appreciate your time. I will let the daughter know. Deneen * Telephone Encounter - Carla Dykes M.A. - 08/20/2016 4:28 PM EDT Deneen, I spoke with [facility], this is a packaging fee. It has nothing to do with insurance and ischarged to everyone. Unfortunately I do not know where else the pt can go that can do this for free. The pt's daughter would have to call around and see who offers this service and if they take his insurance. Sorry I couldn't be more help. Carla. * Telephone Encounter - Deneen Verma - 08/20/2016 12:54 PM EDT What is the name of the medication patient is having a problem with?: all What is the problem?: he usually gets these in the bubble krish ( blister paks) format, however it costs him $20 for each script out of pocket to get these, the daughter Stephanie pays for this. She will continue to pay out of pocket because it is what is best for the patient. She asks , do we know where this would be covered for free, someone told her that this should be a free of charge service for him. I am not sure if this is a insurance plan question or not>? She also knows that this patient currently goes to [facility] because they have this ability, it just costs a fee to do so. Is the patient calling about the problem? NO If the patient is not the caller who is? Stephanie Daughter Is this a NEW medication?: NO How long has the patient been taking this medication? Who prescribed this medication for the patient? Idalia Richey Who is patients PCP?: Idalia Richey Payor: [employer] / Plan: [employer] $0 [place] [id number] / Product Type: HMO [id number] documented in this encounter Plan of Treatment Not on file documented as of this encounter Visit Diagnoses Not on filedocumented in this encounter Care Teams In File Operator Relationship Specialty Start Date End Date Idalia Beckman DO PCP - General Internal Medicine 06/08/14 09/28/20 Alonzo Helms DO PCP - General Internal Medicine 09/29/20 1 Ela Velazco MD [address] [place] [address] PCP - General Internal Medicine 12/28/20 06/25/21 Idalia Beckman DO PCP - General Internal Medicine 06/26/21 07/06/21 [facility], Pcp [address] [place] [address]43 PCP - General Internal Medicine 07/07/21 01/28/22 Idalia Beckman DO PCP - General Internal Medicine 01/29/22 Ulises Solorio MD Speedometer Mechanic Cardiovascular Disease 09/12/20 Jada Galeano NP [address] [place] [address]148 Cardiology 08/14/23 documented as of this encounter
--- OUTSIDE RECORDS SUMMARY | 2024-05-20 10:38 | XMS_ITS | Encounter Summary ---
Author Organization [facility] Address [address] [place] [address] Care Team Providers Care Heat And Frost Insulator Helper Name Role Phone Idalia Beckman DO Primary Care Pro vider Unavailable Ulises Solorio MD Unavailable Alonzo Helms DO Primary Care Provider Leonor Ela Bain MD Primary Care Provider [phone] Idalia Beckman DO Primary Care Pro vider Unavailable [facility], Pcp Primary Care Provider [facility] Idalia Beckman DO Primary Care Pro vider Unavailable Jada Galeano NP Unavailable [phone] Encounter Details Date Type Department Care Team Description 09/24/2017 Hospital Medical Records [address] [place] [address] Jones Alexander Social History Tobacco Use Types Packs/Day Years [...] on filedocumented in this encounter Care Teams Heat And Frost Insulator Helper Relationship Specialty Start Date End Date Idalia Beckman DO PCP - General Internal Medicine 06/08/14 09/28/20 Alonzo Helms DO PCP - General Internal Medicine 09/29/20 1 Ela Velazco MD [address] [place] [address] PCP - General Internal Medicine 12/28/20 06/25/21 Idalia Beckman DO PCP - General Internal Medicine 06/26/21 07/06/21 [facility], Pcp [address] [place] [address] 32298 PCP - General Internal Medicine 07/07/21 01/28/22 Idalia Beckman DO PCP - General Internal Medicine 01/29/22 Ulises Solorio MD Patient Appointment Coordinator Cardiovascular Disease 09/12/20 Jada Galeano, REENA [address] [place] [address]322 Cardiology 08/14/23 documented as of this encounter
--- OUTSIDE RECORDS SUMMARY | 2024-05-20 10:38 | XMS_ITS | Encounter Summary ---
Author Organization [facility] Address [address] [place] [address] Care Team Providers Care Material Yard Clerk Name Role Phone Idalia Beckman DO Primary Care Pro vider Unavailable Ulises Solorio MD Unavailable Alonzo Helms DO Primary Care Provider Leonor Ela Bain MD Primary Care Provider [phone] Idalia Beckman DO Primary Care Pro vider Unavailable [facility], Pcp Primary Care Provider [facility] Idalia Beckman DO Primary Care Pro vider Unavailable Jada Galeano NP Unavailable [phone] Reason for Referral * Non GENE (Priority) - Closed Specialty Diagnoses / Procedures Referred By Alonso linn Referred To Contact Gastroenterology Procedures REFERRAL TO GASTROENTEROLOGY Idalia Beckman DO [address] [place] [address] [facility] [address] [place] [address] Referral ID Status Reason Start Date Expiration Date V isits Requested Visits Authorized [id number] Closed 09/28/2016 09/28/2017 1 1 Encounter Details Date Type Department Care Team Description 09/28/2016 Orders Only Adult Medicine [place] [facility] [place] [address] [place] [address] Idalia Beckman, Social History Tobacco Use Types Packs/Day Years [...] on filedocumented in this encounter Care Teams Material Yard Clerk Relationship Specialty Start Date End Date Idalia Beckman DO PCP - General Internal Medicine 06/08/14 09/28/20 Alonzo Helms DO PCP - General Internal Medicine 09/29/20 1 Ela Velazco MD [address] [place] [address] 34631 PCP - General Internal Medicine 12/28/20 06/25/21 Idalia Beckman DO PCP - General Internal Medicine 06/26/21 07/06/21 [facility], Pcp [address] [place] [address] PCP - General Internal Medicine 07/07/21 01/28/22 Idalia Beckman DO PCP - General Internal Medicine 01/29/22 Ulises Solorio MD Slubber Hand Cardiovascular Disease 09/12/20 Jada Galeano NP [address] [place] [address]80 Cardiology 08/14/23 documented as of this encounter
--- OUTSIDE RECORDS SUMMARY | 2024-05-20 10:38 | XMS_ITS | Encounter Summary ---
Author Organization [facility] Address [address] [place] [address] Care Team Providers Care Tattooer Name Role Phone Idalia Beckman DO Primary Care Pro vider Unavailable Ulises Solorio MD Unavailable Alonzo Helms DO Primary Care Provider Leonor Ela Bain MD Primary Care Provider [phone] Idalia Beckman DO Primary Care Pro vider Unavailable [facility], Pcp Primary Care Provider [facility] Ty Beckmanabela DO Primary Care Pro vider Unavailable Jada Galeano NP Unavailable [phone] Reason for Visit * Reason Onset Date Comments refill request 05/28/2017 Encounter Details Date Type Department Care Team Description 05/28/2017 Refill Adult Medicine [address] [address] Idalia Beckman DO refill request Social History Tobacco Use Types Packs/Day Years Used Date Smoking Tobacco: Every Day Cigarettes 0.3 Smokeless Tobacco: Current Comments:3 cigs per day Alcohol Use Standard Drinks/Week Comments Not Asked 0 (1 standard drink = 0.6 oz pur e alcohol) Sex Assigned at Date Recorded Not on file Job Start Date Occupation Industry Not on file Not on file Not on file documented as of this encounter Patient Instructions * Patient Instructions* Mary Cates M.A. - 05/28/2017 2:19 PM EST See MassPat documented in this encounter Miscellaneous Notes * Telephone Encounter - Mary Cates M.A. - 05/28/2017 2:05 PM EST Lab Results Component Value Date URINEOXYCOD POSITIVE 03/08/2017 URBENZO NEGATIVE 03/08/2017 URAMPHETAMIN NEGATIVE 03/08/2017 URMARIJUANA NEGATIVE 03/08/2017 UROPIATES NEGATIVE 03/08/2017 URBARBITUATE NEGATIVE 03/08/2017 URCOCAINE NEGATIVE 03/08/2017 HYDROCODONE Negative 05/09/2016 Pt is due for refill today masspat printed 7 to pcp for review * Telephone Encounter - Nano Short - 05/28/2017 11:06 AM EST Patient would like script to be: PLACED IN PATIENT AUTOMATIC LOG CUT OFF SAWYER TO BE PICKED UP BY mavis Garces WHEN WAS THE PATIENT'S LAST APPOINTMENT IN ADULT MEDICINE? [id number] WHEN WAS THE LAST TIME THE PATIENT SAW THEIR PCP? Same as above Does patient have an upcoming appointment? Yes [id number] (THE MEDICATION REQUESTED IS ON THE MED LIST ABOVE) All of the medications requested were on the CURRENT MEDS list Did you check the Pharmacy information above?: NO Patient wants: 30 -day supply Is this a mail order prescription request ? NO Patients current insurance carrier is: Payor: [facility] / Plan: [employer] $0 [place] [id number] / Product Type: HMO [id number] documented in this encounter Plan of Treatment Not on file documented as of this encounter Visit Diagnoses Not on filedocumented in this encounter Care Teams Tattooer Relationship Specialty Start Date End Date Idalia Beckman DO PCP - General Internal Medicine 06/08/14 09/28/20 Alonzo Helms DO PCP - General Internal Medicine 09/29/20 1 Ela Velazco MD [address] [place] [address] PCP - General Internal Medicine 12/28/20 06/25/21 Idalia Beckman DO PCP - General Internal Medicine 06/26/21 07/06/21 [facility], Pcp [address] [place] [address] PCP - General Internal Medicine 07/07/21 01/28/22 Idalia Beckman DO PCP - General Internal Medicine 01/29/22 Ulises Solorio MD Photonics Engineering Technologist Cardiovascular Disease 09/12/20 Jada Galeano NP [address] [place] [address] Cardiology 08/14/23 documented as of this encounter
--- OUTSIDE RECORDS SUMMARY | 2024-05-20 10:38 | XMS_ITS | Encounter Summary ---
Author Organization [facility] Address [address] [place] [address] Care Team Providers Care Painter Ski Edge Name Role Phone Idalia Beckman DO Primary Care Pro vider Unavailable Ulises Solorio MD Unavailable Alonzo Helms DO Primary Care Provider Leonor Ela Bain MD Primary Care Provider [phone] Idalia Beckman DO Primary Care Pro vider Unavailable [facility], Pcp Primary Care Provider [facility] Idalia Beckman DO Primary Care Pro vider Unavailable Jada Galeano NP Unavailable [phone] Encounter Details Date Type Department Care Team Description 12/09/2015 GAUGE MAKER APPRENTICE/[facility] Report Medical Records [address] [place] [address] Abstract, Provider Social History Tobacco Use Types [...] on filedocumented in this encounter Care Teams Painter Ski Edge Relationship Specialty Start Date End Date Idalia Beckman DO PCP - General Internal Medicine 06/08/14 09/28/20 Alonzo Helms, PCP - General Internal Medicine 09/29/20 1 Ela Velazco MD [address] [place] [address] PCP - General Internal Medicine 12/28/20 06/25/21 Idalia Beckman DO PCP - General Internal Medicine 06/26/21 07/06/21 [facility], [place] [id number] PCP - General Internal Medicine 07/07/21 01/28/22 Idalia Beckman DO PCP - General Internal Medicine 01/29/22 Ulises Solorio MD Soda Flaker Cardiovascular Disease 09/12/20 Jada Galeano NP [address] [place] [address]79 Cardiology 08/14/23 documented as of this encounter
--- OUTSIDE RECORDS SUMMARY | 2024-05-20 10:39 | XMS_ITS | Encounter Summary ---
Author Organization [facility] Address [address] [place] [address] Care Team Providers Care Advanced Registered Nurse Name Role Phone Idalia Beckman DO Primary Care Pro vider Unavailable Ulises Solorio MD Unavailable Alonzo Helms DO Primary Care Provider Leonor Ela Bain MD Primary Care Provider [phone] Idalia Beckman DO Primary Care Pro vider Unavailable [facility], Pcp Primary Care Provider [facility] Idalia Beckman DO Primary Care Pro vider Unavailable Jada Galeano NP Unavailable [phone] Encounter Details Date Type Department Care Team Description 12/12/2016 Hospital Medical Records [address] [place] [address] Abstract, Provider Social History Tobacco Use Types [...] on filedocumented in this encounter Care Teams Advanced Registered Nurse Relationship Specialty Start Date End Date Idalia Beckman DO PCP - General Internal Medicine 06/08/14 09/28/20 Alonzo Helms, PCP - General Internal Medicine 09/29/20 1 Ela Velazco MD [address] [place], [place] [phone] PCP - General Internal Medicine 12/28/20 06/25/21 Idalia Beckman DO PCP - General Internal Medicine 06/26/21 07/06/21 [facility], Pcp [address] [place] [address] PCP - General Internal Medicine 07/07/21 01/28/22 Idalia Beckman DO PCP - General Internal Medicine 01/29/22 Ulises Solorio MD Admissions Coordinator Cardiovascular Disease 09/12/20 Jada Galeano NP [address] [place] [address] Cardiology 08/14/23 documented as of this encounter
--- OUTSIDE RECORDS SUMMARY | 2024-05-20 10:39 | XMS_ITS | Encounter Summary ---
Author Organization [facility] Address [address] [place] [address] Care Team Providers Care Medical Accounting Clerk Name Role Phone Idalia Beckman DO Primary Care Pro vider Unavailable Ulises Solorio MD Unavailable Alonzo Helms DO Primary Care Provider Leonor Ela Bain MD Primary Care Provider [phone] Idalia Beckman DO Primary Care Pro vider Unavailable Replaced By [facility], Pcp Primary Care Provider [facility] Ty Beckmanabela DO Primary Care Pro vider Unavailable Jada Galeano NP Unavailable [phone] Reason for Visit * Reason Onset Date Comments refill request 09/07/2019 Call From Pharmacy 09/07/2019 Encounter Details Date Type Department Care Team Description 09/07/2019 Refill Adult Medicine [address] [id number] Idalia Beckman DO refill request; Call From Pharmacy Social History Tobacco Use Types Packs/Day Years [...] encounter Miscellaneous Notes * Telephone Encounter - Laurence Blunt M.A. - 09/07/2019 11:36 AM EDT [id number] Lab Results Component Value Date NA 139 09/01/2018 K 3.9 09/01/2018 CO2 27 09/01/2018 CL 104 09/01/2018 BUN 12 09/01/2018 CREAT 0.89 09/01/2018 GLU 134 01/23/2019 CA 9.0 09/01/2018 GFR > 60 09/01/2018 * Telephone Encounter - Mari Flores - 09/07/2019 11:33 AM EDT Patient would like script to be: E-PRESCRIBED/FAXED TO PHARMACY WHEN WAS THE PATIENT'S LAST APPOINTMENT IN ADULT MEDICINE? 06/02/19 WHEN WAS THE LAST TIME THE PATIENT SAW THEIR PCP? Same as above Does patient have an upcoming appointment? Yes 09/08/19 (THE MEDICATION REQUESTED IS ON THE MED LIST ABOVE) All of the medications requested were on the CURRENT MEDS list Did you check the Pharmacy information above?: YES Patient wants: 30 -day supply Is this a mail order prescription request ? NO If the refill is from a FAXED refill request what is the RX # listed on the fax? N/A Patients current insurance carrier is: Payor: [facility] / Plan: [employer] $0 [place] [id number] / Product Type: HMO [id number] documented in this encounter Plan of Treatment Not on file documented as of this encounter Visit Diagnoses Diagnosis Cerebrovascular accident (CVA) within last 3 months Paroxysmal atrial fibrillation (HCC) Atrial fibrillation documented in this encounter Care Teams Medical Accounting Clerk Relationship Specialty Start Date End Date Idalia Beckman DO PCP - General Internal Medicine 06/08/14 09/28/20 Alonzo Helms DO PCP - General Internal Medicine 09/29/20 1 Ela Velazco MD [address] [place] [address] PCP - General Internal Medicine 12/28/20 06/25/21 Idalia Beckman DO PCP - General Internal Medicine 06/26/21 07/06/21 Replaced By [facility], Pcp [address] [place] [address] PCP - General Internal Medicine 07/07/21 01/28/22 Idalia Beckman DO PCP - General Internal Medicine 01/29/22 Ulises Solorio MD Machine Sneller Cardiovascular Disease 09/12/20 Jada Galeano NP [address] [place] [address] Cardiology 08/14/23 documented as of this encounter
--- OUTSIDE RECORDS SUMMARY | 2024-05-20 10:39 | XMS_ITS | Encounter Summary ---
Author Organization [facility] Address [address] [place] [address] Care Team Providers Care Outreach Liaison Name Role Phone Idalia Beckman DO Primary Care Pro vider Unavailable Ulises Solorio MD Unavailable Alonzo Helms DO Primary Care Provider Leonor Ela Bain MD Primary Care Provider [phone] Idalia Beckman DO Primary Care Pro vider Unavailable [facility], Pcp Primary Care Provider [facility] Idalia Beckman DO Primary Care Pro vider Unavailable Jada Galeano NP Unavailable [phone] Encounter Details Date Type Department Care Team Description 02/19/2020 [facility] Medical Records [address] [place] [address] Abstract, Provider Social History Tobacco Use Types [...] on filedocumented in this encounter Care Teams Outreach Liaison Relationship Specialty Start Date End Date Idalia Beckman DO PCP - General Internal Medicine 06/08/14 09/28/20 Alonzo Helms DO PCP - General Internal Medicine 09/29/20 1 Ela Velazco MD [address] [place] [address] PCP - General Internal Medicine 12/28/20 06/25/21 Idalia Beckman DO PCP - General Internal Medicine 06/26/21 07/06/21 [facility], Pcp [address] [place] [address] PCP - General Internal Medicine 07/07/21 01/28/22 Idalia Beckman DO PCP - General Internal Medicine 01/29/22 Ulises Solorio MD Button Sewing Machine Operator Cardiovascular Disease 09/12/20 Jada Galeano NP [address] [place] [address]90 Cardiology 08/14/23 documented as of this encounter
--- OUTSIDE RECORDS SUMMARY | 2024-05-20 10:39 | XMS_ITS | Encounter Summary ---
Author Organization [facility] Address [address] [place] [address] Care Team Providers Care Hydrogen Plant Operations Manager Name Role Phone Idalia Beckman DO Primary Care Pro vider Unavailable Ulises Solorio MD Unavailable Alonzo Helms DO Primary Care Provider Leonor Ela Bain MD Primary Care Provider [phone] Idalia Beckman DO Primary Care Pro vider Unavailable [facility], Pcp Primary Care Provider [facility] e Idalia Beckman DO Primary Care Pro vider Unavailable Jada Galeano NP Unavailable [phone] Encounter Details Date Type Department Care Team Description 12/26/2017 Telephone Cardiology - [address] [phone] Ulises Solorio MD [address] [place] [address] [phone] Social History Tobacco Use Types Packs/Day Years [...] encounter Miscellaneous Notes * Telephone Encounter - Idalia Murillo DO - 12/26/2017 10:28 AM EDT Thank you * Telephone Encounter - Ulises Solorio MD - 12/26/2017 10:09 AM EDT I reviewed more rhythm strips . I think there may be some Afib . Spoke to daughter. Want to start Xarelto stop aspirin documented in this encounter Plan of Treatment Not on file documented as of this encounter Visit Diagnoses Not on filedocumented in this encounter Care Teams Hydrogen Plant Operations Manager Relationship Specialty Start Date End Date Iadlia Beckman DO PCP - General Internal Medicine 06/08/14 09/28/20 Alonzo Helms DO PCP - General Internal Medicine 09/29/20 1 Ela Velazco MD [address] [place] [address] PCP - General Internal Medicine 12/28/20 06/25/21 Idalia Beckman DO PCP - General Internal Medicine 06/26/21 07/06/21 [facility], Pcp [address] [place] [address] PCP - General Internal Medicine 07/07/21 01/28/22 Idalia Beckman DO PCP - General Internal Medicine 01/29/22 Ulises Solorio MD Air Quality Chemist Cardiovascular Disease 09/12/20 Jada Galeano NP [address] [place] [address]26 Cardiology 08/14/23 documented as of this encounter
--- OUTSIDE RECORDS SUMMARY | 2024-05-20 10:39 | XMS_ITS | Encounter Summary ---
Author Organization [facility] Address [address] [place] [address] Care Team Providers Care Circuit Board Assembler Name Role Phone Idalia Beckman DO Primary Care Pro vider Unavailable Ulises Solorio MD Unavailable Alonzo Helms DO Primary Care Provider Leonor Ela Bain MD Primary Care Provider [phone] Idalia Beckman DO Primary Care Pro vider Unavailable [facility], Pcp Primary Care Provider [facility] e Idalia Beckman DO Primary Care Pro vider Unavailable Jada Galeano NP Unavailable [phone] Encounter Details Date Type Department Care Team Description 04/08/2018 [facility] Medical Records [address] [place] [address] Abstract, Provider Social History Tobacco Use Types [...] on filedocumented in this encounter Care Teams Circuit Board Assembler Relationship Specialty Start Date End Date Idalia Beckman DO PCP - General Internal Medicine 06/08/14 09/28/20 Alonzo Helms DO PCP - General Internal Medicine 09/29/20 1 Ela Velazco MD [address] [place] [address] PCP - General Internal Medicine 12/28/20 06/25/21 Idalia Beckman DO PCP - General Internal Medicine 06/26/21 07/06/21 [facility], Pcp [address] [place] [address] PCP - General Internal Medicine 07/07/21 01/28/22 Idalia Beckman DO PCP - General Internal Medicine 01/29/22 Ulises Solorio MD Foam Gun Operator Cardiovascular Disease 09/12/20 Jada Galeano NP [address] [place] [address]06 Cardiology 08/14/23 documented as of this encounter
--- OUTSIDE RECORDS SUMMARY | 2024-05-20 10:39 | XMS_ITS | Encounter Summary ---
Author Organization [facility] Address [address] [place] [address] Care Team Providers Care Comptometrist Name Role Phone Idalia Beckman DO Primary Care Pro vider Unavailable Ulises Solorio MD Unavailable Alonzo Helms DO Primary Care Provider Leonor Ela Bain MD Primary Care Provider [phone] Idalia Beckman DO Primary Care Pro vider Unavailable [facility], Pcp Primary Care Provider [facility] Idalia Beckman DO Primary Care Pro vider Unavailable Jada Galeano NP Unavailable [phone] Encounter Details Date Type Department Care Team Description 03/01/2016 [facility] Medical Records [address] [place] [address] Abstract, Provider Social History Tobacco Use Types [...] on filedocumented in this encounter Care Teams Comptometrist Relationship Specialty Start Date End Date Idalia Beckman DO PCP - General Internal Medicine 06/08/14 09/28/20 Alonzo Helms DO PCP - General Internal Medicine 09/29/20 1 Ela Velazco MD [address] [place] [address] PCP - General Internal Medicine 12/28/20 06/25/21 Idalia Beckman DO PCP - General Internal Medicine 06/26/21 07/06/21 [facility], Pcp [address] [place] [address] 14869 PCP - General Internal Medicine 07/07/21 01/28/22 Idalia Beckman DO PCP - General Internal Medicine 01/29/22 Ulises Solorio MD Director Medical Affairs Cardiovascular Disease 09/12/20 Jada Galeano NP [address] [place] [address] 87369 Cardiology 08/14/23 documented as of this encounter
--- OUTSIDE RECORDS SUMMARY | 2024-05-20 10:39 | XMS_ITS | Encounter Summary ---
Author Organization [facility] Address [address] [place] [address] Care Team Providers Care Gas Maker Helper Name Role Phone Idalia Beckman DO Primary Care Pro vider Unavailable Ulises Solorio MD Unavailable Alonzo Helms DO Primary Care Provider Leonor Ela Bain MD Primary Care Provider [phone] Idalia Beckman DO Primary Care Pro vider Unavailable [facility], Pcp Primary Care Provider [facility] e Idalia Beckman DO Primary Care Pro vider Unavailable Jada Galeano NP Unavailable [phone] Encounter Details Date Type Department Care Team Description 09/30/2018 Orders Only Adult Medicine [address] [phone] Idalia Beckman DO Social History Tobacco Use Types Packs/Day Years [...] on filedocumented in this encounter Care Teams Gas Maker Helper Relationship Specialty Start Date End Date KraIdalia Parker DO PCP - General Internal Medicine 06/08/14 09/28/20 Alonzo Helms DO PCP - General Internal Medicine 09/29/20 1 lEa Velazco MD [address] [place] [address] PCP - General Internal Medicine 12/28/20 06/25/21 Idalia Beckman DO PCP - General Internal Medicine 06/26/21 07/06/21 [facility], Pcp [address] [place] [address]21 PCP - General Internal Medicine 07/07/21 01/28/22 Idalia Beckman DO PCP - General Internal Medicine 01/29/22 Ulises Solorio MD Electro Optics Engineer Cardiovascular Disease 09/12/20 Jada Galeano NP [address] [place] [address] 70298 Cardiology 08/14/23 documented as of this encounter
--- OUTSIDE RECORDS SUMMARY | 2024-05-20 10:39 | XMS_ITS | Encounter Summary ---
Author Organization [facility] Address [address] [place] [address] Care Team Providers Care Parking Meter Mechanic Name Role Phone Ulises Solorio MD Unavailable [facility], Pcp Primary Care Provider Unavailabl e Idalia Beckman DO Primary Care Pro vider Unavailable Jada Galeano NP Unavailable [phone] Reason for Visit * Reason Comments E-prescribe Rx Request Encounter Details Date Type Department Care Team Description 07/07/2021 Refill Adult Medicine [address] [phone] Vicky Da Silva NP E-prescribe Rx Request Social History Tobacco Use Types Packs/Day Years Used Date Smoking Tobacco: Every Day Cigarettes 0.3 Started: 1950 Smokeless Tobacco: Never Comments:3 cigs per day Alcohol Use Standard Drinks/Week Comments No 0 (1 standard drink = 0.6 oz pur e alcohol) Sex Assigned at Date Recorded Not on file Job Start Date Occupation Industry Not on file Not on file Not on file COVID-19 Exposure Response Date Recorded In the last 10 days, have yo u been in contact with someone who was confirmed or suspected to have Coronavirus/COVID-19? No / Unsure 06/26/2021 3:07 PM EDT documented as of this encounter Miscellaneous Notes * Telephone Encounter - Bjorn Morales - 07/07/2021 1:03 PM EDT Patient is no longer a patient of [facility] * Telephone Encounter - Eileen [place] - 07/07/2021 1:02 PM EDT No longer a pt with Idalia Richey documented in this encounter Plan of Treatment Not on file documented as of this encounter Visit Diagnoses Not on filedocumented in this encounter Care Teams Parking Meter Mechanic Relationship Specialty Start Date End Date Community, Pcp PCP - General Internal Medicine 07/07/21 01/28/22 Idalia Beckman DO PCP - General Internal Medicine 01/29/22 Ulises Solorio MD Sawing And Assembly Supervisor Cardiovascular Disease 09/12/20 Jada Galeano NP Cardiology 08/14/23 documented as of this encounter
--- OUTSIDE RECORDS SUMMARY | 2024-05-20 10:39 | XMS_ITS | Encounter Summary ---
Author Organization [facility] Address [address] [place] [address] Care Team Providers Care Mothers Helper Name Role Phone Idalia Beckman DO Primary Care Pro vider Unavailable Ulises Solorio MD Unavailable Alonzo Helms DO Primary Care Provider Leonor Ela Bain MD Primary Care Provider [phone] Idalia Beckman DO Primary Care Pro vider Unavailable [facility], Pcp Primary Care Provider Unavailabl e Idalia Beckman DO Primary Care Pro vider Unavailable Jada Galeano NP Unavailable [phone] Reason for Visit * Reason Comments E-prescribe Rx Request Encounter Details Date Type Department Care Team Description 03/11/2020 Refill Adult Medicine [address] [address] Idalia Beckman DO E-prescribe Rx Request Social History Tobacco Use [...] encounter Miscellaneous Notes * Telephone Encounter - Carla Dykes M.A. - 03/14/2020 11:27 AM EST Last office visit 12/31/19 Next office visit 04/04/20 Lab Results Component Value Date CHOL 149 12/10/2019 LDL 63 12/10/2019 HDL 40 12/10/2019 TRIG 232 12/10/2019 SGOT 18 12/10/2019 SGPT 37 12/10/2019 Lab Results Component Value Date NA 138 12/10/2019 K 4.4 12/10/2019 CO2 29 12/10/2019 CL 105 12/10/2019 BUN 7 12/10/2019 CREAT 0.85 12/10/2019 GLU 94 12/10/2019 CA 9.2 12/10/2019 GFR > 60 12/10/2019 * Telephone Encounter - Yas Glover - 03/11/2020 5:25 PM EST Patient would like script to be: E-PRESCRIBED/FAXED TO PHARMACY WHEN WAS THE PATIENT'S LAST APPOINTMENT IN ADULT MEDICINE? 09/08/2019 WHEN WAS THE LAST TIME THE PATIENT SAW THEIR PCP? 12/31/2019 Does patient have an upcoming appointment? Yes 04/04/20 (THE MEDICATION REQUESTED IS ON THE MED LIST ABOVE) All of the medications requested were on the CURRENT MEDS list Did you check the Pharmacy information above?: YES Patient wants: 90 -day supply Is this a mail order prescription request ? NO If the refill is from a FAXED refill request what is the RX # listed on the fax? N/A Patients current insurance carrier is: Payor: [facility] / Plan: [employer] $0 [id number] [id number] / Product Type: HMO [id number] documented in this encounter Plan of Treatment Not on file documented as of this encounter Visit Diagnoses Not on filedocumented in this encounter Care Teams Mothers Helper Relationship Specialty Start Date End Date Idalia Beckman DO PCP - General Internal Medicine 06/08/14 09/28/20 Alonzo Helms DO PCP - General Internal Medicine 09/29/20 1 Ela Velazco MD [address] [place] [address] PCP - General Internal Medicine 12/28/20 06/25/21 Idalia Beckman DO PCP - General Internal Medicine 06/26/21 07/06/21 [facility], Pcp [address] [place] [address]27 PCP - General Internal Medicine 07/07/21 01/28/22 Idalia Beckman DO PCP - General Internal Medicine 01/29/22 Ulises Solorio MD Auto Service Advisor Cardiovascular Disease 09/12/20 Jada Galeano NP [address] [place] [address]64 Cardiology 08/14/23 documented as of this encounter
--- OUTSIDE RECORDS SUMMARY | 2024-05-20 10:39 | XMS_ITS | Encounter Summary ---
Author Organization [facility] Address [address] [place] [address] Care Team Providers Care Numerical Control Machine Tool Operator Name Role Phone Idalia Beckman DO Primary Care Pro vider Unavailable Ulises Solorio MD Unavailable Alonzo Helms DO Primary Care Provider Leonor Ela Bain MD Primary Care Provider [phone] Idalia Beckman DO Primary Care Pro vider Unavailable [facility], Pcp Primary Care Provider Unavailabl e Idalia Beckman DO Primary Care Pro vider Unavailable Jada Galeano NP Unavailable [phone] Reason for Visit * Reason Comments E-prescribe Rx Request Encounter Details Date Type Department Care Team Description 09/23/2020 Refill Adult Medicine [address] [address] Idalia Beckman DO E-prescribe Rx Request Social [...] Exposure Response Date Recorded In the last month, have you been in contact with someone who was confirmed or suspected to have Coronavirus / COVID-19? No / Unsure 09/12/2020 12:20 PM EDT documented as of this encounter Miscellaneous Notes * Telephone Encounter - Carla Dykes M.A. - 09/23/2020 11:17 AM EDT Last office visit 09/12/20 Pt needs to choose new PCP and schedule a visit This was just filled on 09/12/20 for a 30 day supply. Do you want to give refills until pt can get established with a new PCP? * Telephone Encounter - Kanchan Faye - 09/23/2020 11:14 AM EDT Patient would like script to be: E-PRESCRIBED/FAXED TO PHARMACY WHEN WAS THE PATIENT'S LAST APPOINTMENT IN ADULT MEDICINE? 09/12/2020 WHEN WAS THE LAST TIME THE PATIENT SAW THEIR PCP? Same as above Does patient have an upcoming appointment? No- patient will call to book appointment (THE MEDICATION REQUESTED IS ON THE MED [...] N/A Patients current insurance carrier is: Payor: [employer] / Plan: [employer] $0 [place] [id number] / Product Type: HMO [id number] documented in this encounter Plan of Treatment Not on file documented as of this encounter Visit Diagnoses Not on filedocumented in this encounter Care Teams Numerical Control Machine Tool Operator Relationship Specialty Start Date End Date Idalia Beckman DO PCP - General Internal Medicine 06/08/14 09/28/20 Alonzo Helms DO PCP - General Internal Medicine 09/29/20 1 Ela Velazco MD [address] [place] [address] PCP - General Internal Medicine 12/28/20 06/25/21 Idalia Beckman DO PCP - General Internal Medicine 06/26/21 07/06/21 [facility], Pcp [address] [place] [address] PCP - General Internal Medicine 07/07/21 01/28/22 Idalia Beckman DO PCP - General Internal Medicine 01/29/22 Ulises Solorio MD Industrial Education Teacher Cardiovascular Disease 09/12/20 Jada Galeano NP [address] [place] [address]34 Cardiology 08/14/23 documented as of this encounter
--- OUTSIDE RECORDS SUMMARY | 2024-05-20 10:39 | XMS_ITS | Encounter Summary ---
Author Organization [facility] Address [address] [place] [address] Care Team Providers Care Box Sealing Inspector Name Role Phone Idalia Beckman DO Primary Care Pro vider Unavailable Ulises Solorio MD Unavailable Alonzo Helms DO Primary Care Provider Leonor Ela Bain MD Primary Care Provider [phone] Idalia Beckman DO Primary Care Pro vider Unavailable [facility], Pcp Primary Care Provider [facility] Idalia Beckman DO Primary Care Pro vider Unavailable Jada Galeano NP Unavailable [phone] Encounter Details Date Type Department Care Team Description 11/14/2017 Hand Pleater Report Medical Records [address] [place] [address] Vna Social History Tobacco Use Types Packs/Day Years Used Date Smoking Tobacco: Every Day Cigarettes 0.1 Started: 1950 Smokeless Tobacco: Current Comments:3 cigs per day [...] on filedocumented in this encounter Care Teams Box Sealing Inspector Relationship Specialty Start Date End Date Idalia Beckman DO PCP - General Internal Medicine 06/08/14 09/28/20 Alonzo Helms DO PCP - General Internal Medicine 09/29/20 1 Ela Velazco MD [address] [place] [address] PCP - General Internal Medicine 12/28/20 06/25/21 Idalia Beckman DO PCP - General Internal Medicine 06/26/21 07/06/21 [facility], Pcp [address] [place] [address] PCP - General Internal Medicine 07/07/21 01/28/22 Idalia Beckman DO PCP - General Internal Medicine 01/29/22 Ulises Solorio MD Business Machines Teacher Cardiovascular Disease 09/12/20 Jada Galeano NP [address] [place] [address] Cardiology 08/14/23 documented as of this encounter
--- OUTSIDE RECORDS SUMMARY | 2024-05-20 10:39 | XMS_ITS | Encounter Summary ---
Author Organization [facility] Address [address] [place] [address] Care Team Providers Care Derrick Barge Operator Name Role Phone Idalia Beckman DO Primary Care Pro vider Unavailable Ulises Solorio MD Unavailable Alonzo Helms DO Primary Care Provider Leonor Ela Bain MD Primary Care Provider [phone] Fauzia TrejooTyIdalia DO Primary Care Pro vider Unavailable [facility], Pcp Primary Care Provider [facility] Fauzia Trejoo, Idalia DO Primary Care Pro vider Unavailable Jada Galeano NP Unavailable [phone] Encounter Details Date Type Department Care Team Description 11/27/2017 Orders Only Medical Records [address] [place] [address] Ulises Solorio MD [address] [place] [address] [id number] Cerebrovascular accident (CVA) within last 3 months (Primary Dx); Paroxysmal atrial fibrillation (HCC) Social History Tobacco Use Types Packs/Day Years [...] on file documented as of this encounter Procedures Procedure Name Priority Date/Time Associated Diagnosis Comments OUTSIDE HOLTER MONITOR Routine 11/18/2017 documented in this encounter Results * OUTSIDE HOLTER MONITOR (11/18/2017) Ulises Solorio MD CARDIOLOGY documented in this encounter Visit Diagnoses Diagnosis Cerebrovascular accident (CVA) within last 3 months- Primary Paroxysmal atrial fibrillation (HCC) Atrial fibrillation documented in this encounter Care Teams Derrick Barge Operator Relationship Specialty Start Date End Date Idalia Beckman DO PCP - General Internal Medicine 06/08/14 09/28/20 Alonzo Helms DO PCP - General Internal Medicine 09/29/20 1 Ela Velazco MD [address] [place] [address] PCP - General Internal Medicine 12/28/20 06/25/21 Idalia Beckman DO PCP - General Internal Medicine 06/26/21 07/06/21 [facility], Pcp [address] [place] [address] PCP - General Internal Medicine 07/07/21 01/28/22 Idalia Beckman DO PCP - General Internal Medicine 01/29/22 Ulises Solorio MD Field Identification Specialist Cardiovascular Disease 09/12/20 Jada Galeano NP [address] [place] [address] Cardiology 08/14/23 documented as of this encounter
--- OUTSIDE RECORDS SUMMARY | 2024-05-20 10:39 | XMS_ITS | Encounter Summary ---
Author Organization [facility] Address [address] [place] [address] Care Team Providers Care Binder Coverstitch Name Role Phone Idalia Beckamn DO Primary Care Pro vider Unavailable Ulises Solorio MD Unavailable Alonzo Helms DO Primary Care Provider Leonor Ela Bain MD Primary Care Provider [phone] Idalia Beckman DO Primary Care Pro vider Unavailable [facility], Pcp [facility] Idalia Beckman DO Primary Care Pro vider Unavailable Jada Galeano NP Unavailable [phone] Reason for Visit * Reason Onset Date Comments medication problems 04/30/2017 Encounter Details Date Type Department Care Team Description 04/30/2017 Telephone Adult [address] [address] Idalia Beckman DO medication problems Social History Tobacco Use Types Packs/Day Years [...] Telephone Encounter - Mary Cates M.A. - 04/30/2017 4:37 PM EST Message left on voicemail advising pt may take printed rx to another pharmacy to see if it can be filled, med is approved by ins due to pt's sensitivities, also advised may bring printed rx back to [place] tomorrow when pcp is back in the office, to see if she will choose another rmed * Telephone Encounter - Rowan Rao - 04/30/2017 4:14 PM EST Who is calling? A pharmacist: Pharmacy: [facility] Pharmacist Name: [facility] Phone # Name of the medication oxycodone (Xtampza ER) What is the specific problem or interaction? Pharmacy states they are out of the medication listed above and is requesting an alternative. Pt was at the pharmacy at the time of call and is requestinga call back from nurse. If the patient is having a problem with taking the med - how long has the problem been going on? N/A documented in this encounter Plan of Treatment Not on file documented as of this encounter Visit Diagnoses Not on filedocumented in this encounter Care Teams Binder Coverstitch Relationship Specialty Start Date End Date Idalia Beckman DO PCP - General Internal Medicine 06/08/14 09/28/20 Alonzo Helms DO PCP - General Internal Medicine 09/29/20 1 Ela Velazco MD [address] [place] [address] PCP - General Internal Medicine 12/28/20 06/25/21 Idalia Beckman DO PCP - General Internal Medicine 06/26/21 07/06/21 [facility], Pcp [address] [place] [address] PCP - General Internal Medicine 07/07/21 01/28/22 Idalia Beckman DO PCP - General Internal Medicine 01/29/22 Ulises Solorio MD Supervisor Hospitality House Cardiovascular Disease 09/12/20 Jada Galeano, REENA [address] [place] [address] Cardiology 08/14/23 documented as of this encounter
--- OUTSIDE RECORDS SUMMARY | 2024-05-20 10:39 | XMS_ITS | Encounter Summary ---
Author Organization [facility] Address [address] [place] [address] Care Team Providers Care Profile Mill Operator Tape Control Name Role Phone Idalia Beckman DO Primary Care Pro vider Unavailable Ulises Solorio MD Unavailable Alonzo Helms DO Primary Care Provider Leonor Ela Bain MD Primary Care Provider [phone] Idalia Beckman DO Primary Care Pro vider Unavailable [facility], Pcp [facility] Idalia Beckman DO Primary Care Pro vider Unavailable Jada Galeano NP Unavailable [phone] Encounter Details Date Type Department Care Team Description 09/09/2020 Release of Information Medical Records [address] [place] [address] Abstract, Provider Social History Tobacco Use Types [...] PM EDT documented as of this encounter Plan of Treatment Not on file documented as of this encounter Visit Diagnoses Not on filedocumented in this encounter Care Teams Profile Mill Operator Tape Control Relationship Specialty Start Date End Date Idalia Beckman DO PCP - General Internal Medicine 06/08/14 09/28/20 Alonzo Helms DO PCP - General Internal Medicine 09/29/20 1 Ela Velazco MD [address] [place] [address] PCP - General Internal Medicine 12/28/20 06/25/21 Idalia Beckman DO PCP - General Internal Medicine 06/26/21 07/06/21 [facility], Pcp [address] [place] [address] PCP - General Internal Medicine 07/07/21 01/28/22 Idalia Beckman DO PCP - General Internal Medicine 01/29/22 Ulises Solorio MD Chemical Processor Cardiovascular Disease 09/12/20 Jada Galeano NP [address] [place] [address] Cardiology 08/14/23 documented as of this encounter
--- OUTSIDE RECORDS SUMMARY | 2024-05-20 10:39 | XMS_ITS | Encounter Summary ---
Author Organization [facility] Address [address] [place] [address] Care Team Providers Care Mineral Technologist Name Role Phone Ulises Solorio MD Unavailable Idalia Beckman DO Primary Care Pro vider Unavailable Jada Galeano NP Unavailable [phone] Encounter Details Date Type Department Care Team Description 08/19/2023 SCAN Medical Records [address] [place] [id number] [place] [address] Social History Tobacco Use Types Packs/Day Years Used Date Smoking Tobacco: Every Day Cigarettes 0.3 Started: 1949 Smokeless Tobacco: Never Comments:3 cigs per day [...] on filedocumented in this encounter Care Teams Mineral Technologist Relationship Specialty Start Date End Date Idalia Beckman DO PCP - General Internal Medicine 01/29/22 Ulises Solorio MD Recording Engineer Cardiovascular Disease 09/12/20 Jada Galeano NP Cardiology 08/14/23 documented as of this encounter
--- OUTSIDE RECORDS SUMMARY | 2024-05-20 10:39 | XMS_ITS | Encounter Summary ---
Author Organization [facility] Address [address] [place] [address] Care Team Providers Care Corking Machine Operator Name Role Phone Ulises Solorio MD Unavailable [facility], Pcp Primary Care Provider Unavailabl e Idalia Beckman DO Primary Care Pro vider Unavailable Jada Galeano NP Unavailable Encounter Details Date Type Department Care Team Description 11/06/2021 Loan Servicing Representative Report Medical Records [address] [place] [address] Center, [facility] [address] [place] [address] Social History Tobacco Use Types Packs/Day Years [...] on filedocumented in this encounter Care Teams Corking Machine Operator Relationship Specialty Start Date End Date Community, Pcp PCP - General Internal Medicine 07/07/21 01/28/22 Idalia Beckman DO PCP - General Internal Medicine 01/29/22 Ulises Solorio MD Job Coaching Cardiovascular Disease 09/12/20 Jada Galeano NP Cardiology 08/14/23 documented as of this encounter
--- OUTSIDE RECORDS SUMMARY | 2024-05-20 10:39 | XMS_ITS | Encounter Summary ---
Author Organization [facility] Address [address] [place] [address] Care Team Providers Care Artificial Insemination Technician Name Role Phone Ulises Solorio MD Unavailable [facility], Pcp Primary Care Provider Unavailabl e Idalia Beckman DO Primary Care Pro vider Unavailable Jada Galeano NP Unavailable [phone] Reason for Visit * Reason Comments E-prescribe Rx Request Encounter Details Date Type Department Care Team Description 07/10/2021 Refill Adult Medicine [address] [id number] Anastasia Wyatt PA-C E-prescribe Rx Request Social History Tobacco Use [...] fibrillation documented in this encounter Care Teams Artificial Insemination Technician Relationship Specialty Start Date End Date Community, Pcp PCP - General Internal Medicine 07/07/21 01/28/22 Idalia Beckman DO PCP - General Internal Medicine 01/29/22 Ulises Solorio MD Contracts Representative Cardiovascular Disease 09/12/20 Jada Galeano NP Cardiology 08/14/23 documented as of this encounter
--- OUTSIDE RECORDS SUMMARY | 2024-05-20 10:39 | XMS_ITS | Encounter Summary ---
Author Organization [facility] Address [address] [place] [address] Care Team Providers Care Bleach Boiler Puller Name Role Phone Idalia Beckman DO Primary Care Pro vider Unavailable Ulises Solorio MD Unavailable Alonzo Helms DO Primary Care Provider Leonor Ela Bain MD Primary Care Provider [phone] Idalia Beckman DO Primary Care Pro vider Unavailable [facility], Pcp Primary Care Provider [facility] Idalia Beckman DO Primary Care Pro vider Unavailable Jada Galeano NP Unavailable [phone] Reason for Visit * Reason Onset Date Comments Faxed Order 01/27/2018 Encounter Details Date Type Department Care Team Description 01/27/2018 Refill Adult Medicine [address] [address] Idalia Beckman DO Faxed Order Social History Tobacco Use Types Packs/Day Years [...] Telephone Encounter - Mary Cates M.A. - 01/28/2018 12:36 PM EDT Lab Results Component Value Date NA 141 12/10/2017 K 4.3 12/10/2017 CO2 24.2 12/10/2017 CL 102 12/10/2017 BUN 10 12/10/2017 CREAT 0.8 12/10/2017 GLU 164 12/10/2017 CA 9.8 12/10/2017 GFR > 60 12/10/2017 Last ov 12/10/17 * Telephone Encounter - Cristiana Castaneda - 01/27/2018 1:24 PM EDT Patient would like script to be: PLACED IN PATIENT EDITOR HOUSE ORGAN TO BE PICKED UP BY ? WHEN WAS THE PATIENT'S LAST APPOINTMENT IN ADULT MEDICINE? 12/10/2017? WHEN WAS THE LAST TIME THE PATIENT SAW THEIR PCP? Same as above ? Does patient have an upcoming appointment? 02/07/2018? (THE MEDICATION REQUESTED??IS ON THE MED LIST ABOVE) All of the medications requested were on the CURRENT MEDS list ? Did you check the Pharmacy information above?: NO ? Patient wants: 30 -day supply ? Is this a mail order prescription request ? ??NO ? If the refill is from a FAXED refill request what is the RX # listed on the fax? N/A ? Patients current insurance carrier is: Payor: [facility] / Plan: [employer] HMO $0 [id number] / Product Type: HMO [id number] ? documented in this encounter Plan of Treatment Not on file documented as of this encounter Visit Diagnoses Not on filedocumented in this encounter Care Teams Bleach Boiler Puller Relationship Specialty Start Date End Date Idalia Beckman DO PCP - General Internal Medicine 06/08/14 09/28/20 Alonzo Helms DO PCP - General Internal Medicine 09/29/20 1 Ela Velazco MD [address] [place] [address] PCP - General Internal Medicine 12/28/20 06/25/21 Idalia Beckman DO PCP - General Internal Medicine 06/26/21 07/06/21 [facility], Pcp [address] [place] [address] PCP - General Internal Medicine 07/07/21 01/28/22 Idalia Beckman DO PCP - General Internal Medicine 01/29/22 Ulises Solorio MD Sales Market Leader Cardiovascular Disease 09/12/20 Jada Galeano NP [address] [place] [address] Cardiology 08/14/23 documented as of this encounter
--- OUTSIDE RECORDS SUMMARY | 2024-05-20 10:39 | XMS_ITS | Encounter Summary ---
Author Organization [facility] Address [address] [place] [address] Care Team Providers Care Supervisor Steffen House Name Role Phone Ulises Solorio MD Unavailable Ela Velazco MD Primary Care Provider [phone] Idalia Beckman DO Primary Care Pro vider Unavailable [facility], [facility] Primary Care Provider [facility] Idalia Beckman DO Primary Care Pro vider Unavailable Jada Galeano NP Unavailable [phone] Encounter Details Date Type Department Care Team Description 03/29/2021 [facility] Medical Records [address] [place] [address] Abstract, Provider Social History Tobacco Use Types [...] on filedocumented in this encounter Care Teams Supervisor Steffen House Relationship Specialty Start Date End Date Ela Velazco MD [address] [place] [address] [id number] PCP - General Internal Medicine 12/28/20 06/25/21 Idalia Beckman DO [address] [place] [address] PCP - General Internal Medicine 06/26/21 07/06/21 [facility], Pcp [address] [place] [address] PCP - General Internal Medicine 07/07/21 01/28/22 Idalia Beckman, [address] [place] [address] PCP - General Internal Medicine 01/29/22 Ulises Solorio MD Statistician Cardiovascular Disease 09/12/20 Jada Galeano NP [address] [place] [address] Cardiology 08/14/23 documented as of this encounter
--- OUTSIDE RECORDS SUMMARY | 2024-05-20 10:39 | XMS_ITS | Encounter Summary ---
Author Organization [facility] Address [address] [place] [address] Care Team Providers Care Income Tax Advisor Name Role Phone Idalia Beckman DO Primary Care Pro vider Unavailable Ulises Solorio MD Unavailable Alonzo Helms DO Primary Care Provider Leonor Ela Bain MD Primary Care Provider [phone] Idalia Beckman DO Primary Care Pro vider Unavailable [facility], Pcp Primary Care Provider [facility] Idalia Beckman DO Primary Care Pro vider Unavailable Jada Galeano NP Unavailable [phone] Reason for Visit * Reason Onset Date Comments DME Request 07/14/2014 Encounter Details Date Type Department Care Team Description 07/14/2014 Telephone Adult Medicine [address] [address] Idalia Beckman DO DME Request Social History Tobacco Use Types Packs/Day [...] encounter Miscellaneous Notes * Telephone Encounter - Caitie Banuelos L.P.N. - 07/15/2014 10:54 AM EDT Do you want to Rx for this request of heating pad ? [place] risk for delval[place] and are not Rxd * Telephone Encounter - Mere Hemphill - 07/14/2014 2:37 PM EDT Name of Product: Heating pad Specific information about product # Needed 1 Reason/Diagnosis: Patient Active Problem List Diagnosis Code ??? BPH (benign prostatic hyperplasia) 600.90 ??? Dyslipidemia 272.4 ??? HTN (hypertension) 401.9 ??? 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 Old MT (myocardial infarction) 412 ??? Choledocholithiasis 574.50 ??? Anemia 285.9 ??? Peripheral neuropathy 356.9 ??? Tubular adenoma of colon 211.3 ??? GERD (gastroesophageal reflux disease) 530.81 ??? Low back pain 724.2 When completed: Will cotton picker-call when completed: (home) documented in this encounter Plan of Treatment Not on file documented as of this encounter Visit Diagnoses Not on filedocumented in this encounter Care Teams Income Tax Advisor Relationship Specialty Start Date End Date Idalia Beckman DO PCP - General Internal Medicine 06/08/14 09/28/20 Alonzo Helms, PCP - General Internal Medicine 09/29/20 1 Ela Velazco MD [address] [place] [address] PCP - General Internal Medicine 12/28/20 06/25/21 Idalia Beckman, DO PCP - General Internal Medicine 06/26/21 07/06/21 [facility], Pcp [address] [place] [address] PCP - General Internal Medicine 07/07/21 01/28/22 Idalia Beckman, DO PCP - General Internal Medicine 01/29/22 Ulises Solorio MD Category Director Cardiovascular Disease 09/12/20 Jada Galeano NP [address] [place] [address] Cardiology 08/14/23 documented as of this encounter
--- OUTSIDE RECORDS SUMMARY | 2024-05-20 10:39 | XMS_ITS | Encounter Summary ---
Author Organization [facility] Address [address] [place] [address] Care Team Providers Care Housecleaner Floor Name Role Phone Idalia Beckman DO Primary Care Pro vider Unavailable Ulises Solorio MD Unavailable Alonzo Helms DO Primary Care Provider Leonor Ela Bain MD Primary Care Provider [phone] Idalia Beckman DO Primary Care Pro vider Unavailable [facility], Pcp Primary Care Provider [facility] Idalia Beckman DO Primary Care Pro vider Unavailable Jada Galeano NP Unavailable [phone] Encounter Details Date Type Department Care Team Description 10/15/2017 Orders Only Adult Medicine [address] [id number] Idalia Beckman DO Social History Tobacco Use [...] on filedocumented in this encounter Care Teams Housecleaner Floor Relationship Specialty Start Date End Date Idalia Beckman DO PCP - General Internal Medicine 06/08/14 09/28/20 Alonzo Helms DO PCP - General Internal Medicine 09/29/20 1 Ela Velazco MD [address] [place] [address] PCP - General Internal Medicine 12/28/20 06/25/21 Idalia Beckman DO PCP - General Internal Medicine 06/26/21 07/06/21 [facility], Pcp [address] [place] [address] PCP - General Internal Medicine 07/07/21 01/28/22 Idalia Beckman DO PCP - General Internal Medicine 01/29/22 Ulises Solorio MD Skein Bander Cardiovascular Disease 09/12/20 Jada Galeano NP [address] [place] [address] Cardiology 08/14/23 documented as of this encounter
--- OUTSIDE RECORDS SUMMARY | 2024-05-20 10:39 | XMS_ITS | Encounter Summary ---
Author Organization [facility] Address [address] [place] [address] Care Team Providers Care Foot Specialist Name Role Phone Idalia Beckman DO Primary Care Pro vider Unavailable Ulises Solorio MD Unavailable Alonzo Helms DO Primary Care Provider Leonor Ela Bain MD Primary Care Provider [phone] Idalia Beckman DO Primary Care Pro vider Unavailable [facility], Pcp Primary Care Provider [facility] Idalia Beckman DO Primary Care Pro vider Unavailable Jada Galeano NP Unavailable [phone] Reason for Visit * Reason Onset Date Comments Faxed Order 10/23/2017 Encounter Details Date Type Department Care Team Description 10/23/2017 Telephone Adult Medicine [address] [address] Idalia Beckman DO Faxed Order Social History [...] encounter Miscellaneous Notes * Telephone Encounter - Marcia Power - 10/23/2017 10:26 AM EDT Modified order for Dr Idalia Richey's signature documented in this encounter Plan of Treatment Not on file documented as of this encounter Visit Diagnoses Not on filedocumented in this encounter Care Teams Foot Specialist Relationship Specialty Start Date End Date Idalia Beckman DO PCP - General Internal Medicine 06/08/14 09/28/20 Alonzo Helms DO PCP - General Internal Medicine 09/29/20 1 Ela Velazco MD [address] [place] [address] PCP - General Internal Medicine 12/28/20 06/25/21 Idalia Beckman DO PCP - General Internal Medicine 06/26/21 07/06/21 [facility], Pcp [address] [place] [address] PCP - General Internal Medicine 07/07/21 01/28/22 Idalia Beckman DO PCP - General Internal Medicine 01/29/22 Ulises Solorio MD Supervisor Customer Records Division Cardiovascular Disease 09/12/20 Jada Galeano NP [address] [place] [address] Cardiology 08/14/23 documented as of this encounter
--- OUTSIDE RECORDS SUMMARY | 2024-05-20 10:39 | XMS_ITS | Encounter Summary ---
Author Organization [facility] Address [address] [place] [address] Care Team Providers Care Consumer Loan Officer Name Role Phone Idalia Beckman DO Primary Care Pro vider Unavailable Ulises Solorio MD Unavailable Alonzo Helms DO Primary Care Provider Leonor Ela Bain MD Primary Care Provider [phone] Idalia Beckman DO Primary Care Pro vider Unavailable [facility], Pcp Primary Care Provider [facility] Fauzia TrejooTyIdalia DO Primary Care Pro vider Unavailable Jada Galeano NP Unavailable [phone] Reason for Visit * Reason Onset Date Comments Faxed Order 01/24/2016 our dentist Encounter Details Date Type Department Care Team Description 01/24/2016 Telephone Adult Medicine [address] [phone] Idalia Beckman DO Faxed Order (our dentist) Social History Tobacco Use Types Packs/Day Years [...] Telephone Encounter - Mary Cates M.A. - 01/27/2016 4:46 PM EDT Pt is scheduled to have a deep dental cleaning 01/31/16 under local anesthesia at Our dentist [address] [place] [address] ([id number]). pcp will not sign medical clearance form without seeing the pt. Pt is on plavix and dentist wants to know if pt needs amoxicillin prior to procedure. Pt needs H&P.pcp just came to me and asked me to have this set up * Telephone Encounter - Nano Short - 01/24/2016 2:43 PM EDT Faxed order for medical clearance from our dentist documented in this encounter Plan of Treatment Not on file documented as of this encounter Visit Diagnoses Not on filedocumented in this encounter Care Teams Consumer Loan Officer Relationship Specialty Start Date End Date Idalia Beckman DO PCP - General Internal Medicine 06/08/14 09/28/20 Alonzo Helms DO PCP - General Internal Medicine 09/29/20 1 Ela Velazco MD [address] [place] [address] PCP - General Internal Medicine 12/28/20 06/25/21 Idalia Beckman DO PCP - General Internal Medicine 06/26/21 07/06/21 [facility], Pcp [address] [place] [address] PCP - General Internal Medicine 07/07/21 01/28/22 Idalia Beckman DO PCP - General Internal Medicine 01/29/22 Ulises Solorio MD Sand Hauler Cardiovascular Disease 09/12/20 Jada Galeano NP [address] [place] [address] Cardiology 08/14/23 documented as of this encounter
--- OUTSIDE RECORDS SUMMARY | 2024-05-20 10:39 | XMS_ITS ---
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, with unspecified presence of clinical manifestation (I70.203) Active confirmed Q7(A), Q8(2B), Q9(1B,2C) Vital Signs Height 5 ft 9inch in 03/02/2024 Weight 128 lbs 03/02/2024 BMI 18.9 kg/m2 03/02/2024 Procedures Procedure Date Ordered Date Performed Result Body Sit e 16267-WXSUGBY NAIL, 6 OR MORE 03/02/2024 N/A 37628-OFTD SKIN LESIONS, 2 TO 4 03/02/2024 N/A Encounters Encounter Location Date Provider Diagnosis [facility] [address] [place] [address] 03/02/2024 Lee Ann Gaffney 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, with unspecified presence of clinical manifestation I70.203 ; Tinea unguium B35.1 ; Pain in right toe(s) M79.674 ; Pain in left toe(s) M79.675 and Xerosis of skin L85.3 Assessments Encounter Date Diagnosis (ICD Code) Assessment Notes Treatment Notes Treatment Clinical Notes Section Notes 03/02/2024 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, with unspecified [...] days Pending Test Test Name Order Date 80869-ZFKRRWS NAIL, 6 OR MORE 03/02/2024 56221-BIWJ SKIN LESIONS, 2 TO 4 03/02/20 24 Next Appt Details Follow Up: 4 Months, Reason: Provider Name:Lee Ann thorpe, 07/15/2024 01:30:00 PM, [address] [place], [address], Procedure Notes * Category Sub-Category Detail Notes [...] use of a nail nipper and/or dremel-type abrasive grinder, to a more viable healthy nail [...] to maintain effectiveness in symptomatic relief - 57911 Keratoma Treatment Parring or Cutting o f Benign Hyperkeratotic Lesion(s) (-56) 2-4 Lesions - The Benign hyperkeratotic lesions, ( _2 ) in total, locations as stated and described in exam, were pared, and/or cut utilizing a sterile 15 blade, tissue nippers, and/or power dremel instrumentation - 41405, Q8 Progress Notes * Ross BAILEYioDOB: [birth year] (83 yo M)Acc No.[id number]:03/02/2024 Progress Notes Patient:?Markus BAILEY Provider:?Lee Ann Gaffney DPM :1940???Age:83 Y???Sex:Male Mathew e:03/02/2024 Address:[address] [place], [place] [id number] Pcp:Idalia Yin past due accounts clerk Subjective: * Chief Complaints: * ???At Risk [...] not performed? 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 Plan: * Treatment: 2.?Tinea unguium?Procedure: 79528-XEJIRAS NAIL, 6 OR MORE 3.?Xerosis of skin? [...] use of a nail nipper and/or dremel-type abrasive grinder, to a more viable healthy nail [...] to maintain effectiveness in symptomatic relief - 55077.?Keratoma Treatment:?Parring or Cutting of Benign Hyperkeratotic Lesion(s)?(-56) 2-4 Lesions - The Benign hyperkeratotic lesions, ( _2 ) in total, locations as stated and described in exam, were pared, and/or cut utilizing a sterile 15 blade, tissue nippers, and/or power dremel instrumentation - 14044, Q8.? * Procedure Codes:?54486 DEBRI DE NAIL, 6 OR MORE, Modifiers: XS 91580 TRIM SKIN LESIONS, 2 TO 4, Modifiers: [...] Gaffney DPM Date:?05/03/2023 Generated for Miles camacho/Hira/Mane on:?05/20/2024 10:38 AM EST History and Physical Notes * HPI [...]
--- OUTSIDE RECORDS SUMMARY | 2024-05-20 10:39 | XMS_ITS | Encounter Summary ---
Author Organization [facility] Address [address] [place] [address] Care Team Providers Care Heavy Duty Diesel Mechanic Name Role Phone Ulises Solorio MD Unavailable Community, Pcp Primary Care Provider Unavaildago e Idalia Beckman DO Primary Care Pro vider Unavailable Jada Galeano NP Unavailable [phone] Encounter Details Date Type Department Care Team Description 10/05/2021 Orders Only [facility] Lung Screening Program [place] [address] [facility] [address] [place] [id number] Rambo Diamond MD [address] [facility] [address] [place] [address] History of tobacco use, presenting hazards to health (Primary Dx) Social History Tobacco Use Types Packs/Day Years [...] as of this encounter Visit Diagnoses Diagnosis History of tobacco use, presenting hazards to health- Primary Personal history of tobacco use, presenting hazards to health documented in this encounter Care Teams Heavy Duty Diesel Mechanic Relationship Specialty Start Date End Date Community, Pcp PCP - General Internal Medicine 07/07/21 01/28/22 Idalia Beckman DO PCP - General Internal Medicine 01/29/22 Ulises Solorio MD Boiler Maker Cardiovascular Disease 09/12/20 Jada Galeano NP Cardiology 08/14/23 documented as of this encounter
--- OUTSIDE RECORDS SUMMARY | 2024-05-20 10:39 | XMS_ITS | Clinical Summary ---
Author Organization [facility] Address [address] [place] [address] Care Team Providers Care Certified Wellness Program Manager Name Role Phone Ulises Solorio MD Unavailable Idalia Beckman DO Primary Care Pro vider Unavailable Jada Galeano NP Unavailable [phone] Allergies Active Allergy Reactions Severity Noted Date Comments Lisinopril Cough 03/01/2015 Lyrica 03/08/2017 Off balance, dizzy Morphine 03/03/2014 Hives, swelling Ibuprofen 03/03/2014 GI upset Medications Medication Sig Dispensed Refills Start Date End Date Status Blood Glucose Monitoring Suppl (ONE TOUCH ULTRA 2) W/DEVICE Kit 1 Each by Does not apply route 2 times daily. 1 Kit 0 09/05/2018 Active lidocaine-prilocaine (EMLA) creamIndications:Type 2 diabetes mellitus with polyneuropathy (HCC) Apply to painful areas of feet twice daily 30 g 5 09/17/2018 Active Alcohol Swabs (ALCOHOL PREP) 70 % Pads Apply 1 Each topically 2 times daily. 200 Each 1 12/31/2019 Active Nutritional Supplements (ENSURE) LiquidIndications:Type 2 diabetes mellitus with neurological manifestations, controlled (HCC) Take 1 Can by mouth 3 times daily. 90 Can 11 12/31/2019 Active tamsulosin (FLOMAX) 0.4 MG 24 hr capsule TAKE (1) CAPSULE BY MOUTH DAILY 30 MINUTES AFTER THE SAME MEAL EVERYDAY. 28 capsule 0 11/21/2020 Active finasteride (PROSCAR) 5 MG tabletIndications:Austyn gn non-nodular prostatic hyperplasia with lower urinary tract symptoms TAKE (1) TABLET BY MOUTH DAILY. 28 tablet 0 11/21/2020 Active Thiamine HCl (B-1) 100 MG Tab TAKE (1) TABLET BY MOUTH DAILY. 28 tablet 5 12/30/2020 Active oxycodone (ROXICODONE) 5 MG immediate release tablet Take 1 tablet by mouth every 12 hours as needed for Pain. 56 tablet 0 01/26/2021 Active atorvastatin (LIPITOR) 80 MG tablet Take 1 tablet by mouth daily. 28 tablet 5 02/10/2021 Active Multiple Vitamin (Multi-Vitamins) Tab TAKE (1) TABLET BY MOUTH DAILY. 28 tablet 5 02/10/2021 Active Accu-Chek FastClix Lancets Mis Use one twice daily to check blood sugars 200 Each 1 03/16/2021 Active oxyCODONE ER (Xtampza ER) 18 MG Capsule Extended Release 12 hour Abuse-Deterrent Take 1 capsule by mouth 2 times daily. 40 capsule 0 03/23/2021 Active folic acid (FOLVITE) 1 MG tablet TAKE (1) TABLET BY MOUTH DAILY. 28 tablet 0 06/02/2021 Active losartan (COZAAR) 25 MG tablet TAKE (1) TABLET BY MOUTH DAILY. 28 tablet 0 06/02/2021 Active gabapentin (NEURONTIN) 300 MG capsule TAKE (1) CAPSULE BY MOUTH TWICE DAILY. 56 capsule 0 06/02/2021 Active metoprolol (TOPROL-XL) 25 MG 24 hr tablet TAKE 1 TABLET BY MOUTH DAILY. 28 Tablet 0 01/08/2023 Active Rivaroxaban (Xarelto) 15 MG TabIndications:Paroxys mal atrial fibrillation (HCC),Secondary hypercoagulable state (HCC) Take 1 Tablet by mouth daily. Take with evening meal. 90 Tablet 1 09/10/2023 Active clopidogrel (PLAVIX) 75 MG tablet TAKE 1 TABLET BY MOUTH DAILY 28 Tablet 6 10/31/2023 Active Active Problems Patient Care Coordination No te Formatting of this note is d ifferent from the original. Checking Your Blood Sugars Please check your blood sugars every day. Please check your sugars at the following times of day: before breakfast Your Blood Sugar Goals Pre Meal: 90-130 2 hours after meals: 110-160 Bedtime: 110-150 Use the Results ?? Bring your glucometer to every appointment ?? Write your fingerstick blood sugars down on a log sheet or record book. Bring them to your appointment ?? Look for patterns in the numbers. The results help you and your provider make decisions about your diabetes treatment plan. Your Results and your Goals Your Result / Date of Completion Your Goal / How Often to Assess Component Value Date HGBA1C 7.1 02/21/2016 Less than 7% --- 2-4 times per year BP Readings from Last 1 Encounters: 02/28/16 110/60 Less than 140/90 --- once per year Component Value Date MALBCR 11.2 08/04/2015 Less than 30 --- once per year Component Value Date LDL 43 02/21/2016 Less than 100 --- once per year Wt Readings from Last 1 Encounters: 02/28/16 166 lb (75.297 kg) Your goal weight by next visit: 165 --- reassess 2-4 times a year Health Maintenance Due Topic Date Due ? ? Dtap/tdap/td (#1 - Tdap) 06/19/1951 ? ? Diabetes: Annual Foot Exam 1958 ? ? Pneumococcal Vaccine (#2 of 2 - Dose 1 = PPSV23, Dose 2= PCV13) 01/17/2011 ? ? Diabetes: Annual Eye Exam 08/25/2015 ? ? Diabetes: Annual Care Plan 10/22/2015 Your Action Plan Check blood glucose as directed and write down all results. Contact me if you experience any barriers to care such as inability to purchase your medication, difficulty getting to your appointments or difficulty understanding your care plan When to Call your Healthcare Provider If your blood sugar falls below 70 and you do not know why or you become unconscious If you are sick and unable to take liquids because or nausea or vomiting If you have a fever over 101 If your blood sugar is 300 or higher on greater than 3 separate occasions during the same week If you are just unsure what to do Educational Resources [place] Diabetes Association (www.diabetes.org) Centers for Disease Control and Prevention (www.cdc.gov/diabetes) This care plan was created in collaboration with Markus Bailey on 02/28/2016 Problem Noted Date Secondary hypercoagulable state 08/19/19 24 Hospital discharge follow-up 08/19/2023 Last Assessment & Plan: Hospital records reviewed; medications reconciled. From a cardiac standpoint, the patient appears to be doing well. Family is aware to return to care for any questions or concerns seek emergent medical attention for any acute changes such as with worsening shortness of breath, chest pain, syncope or presyncope. Unintentional weight loss 08/19/2023 Last Assessment & Plan: The patient and his family continue to work with the PCP to improve his nutritional status; his family reports that he has actually gained weight since coming home from rehab approximately 3 weeks ago. Continue with Ensure and increasing portions slowly, offer snacks frequently to help increase appetite. Patient is PT/OT and VNA services at home. Atrial fibrillation 08/15/2023 Last Assessment & Plan: The patient was confirmed to have paroxysmal atrial fibrillation during hospitalization in May 2023; he was subsequently restarted on Xarelto for cardioembolic prophylaxis. Rate is well-controlled on metoprolol. We discussed the risks and benefits of continuing anticoagulation and and the patient and his family wish to continue with current plan. They are aware to seek emergent medical attention for any uncontrolled bleeding, signs or symptoms of GI or other internal bleeding, or for any head injury. We will await the results of 30-day monitor that was just returned today and readdress as needed. Renal artery injury 08/15/2023 CAD (coronary artery disease) 08/15/2023 Last Assessment & Plan: No signs or symptoms concerning for underlying ischemia; the patient remains relatively sedentary given his recent cognitive and physical decline, but no outward concerns have been noted by the family. Continue with cardioprotective medical therapies including beta-blockade, statin, and Plavix; daily aspirin has been discontinued given recent restart of Xarelto. Patient advised to seek emergency medical attention by calling 911 if they were to develop severe dyspnea, chest pain that did not resolve with rest, or if they were to faint. 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 He remains on Xarelto for cardioembolic prophylaxis as infarct was likely cardioembolic in origin. 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 Essential hypertension Last Assessment & Plan: Blood pressure is well-controlled on current medical therapies; we will not make any changes today, continue losartan and metoprolol. Patient will continue to follow with nephrology given his history of renal dysfunction. 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 (myocardial infarction) Overview: RCA stenting and re stenting 2008 Tobacco use Cerebrovascular accident (CVA) within [facility] 3 months Resolved Problems Problem Noted Date Resolved Date CVA, old, speech/language deficit 10/16/2017 01/23/2019 Other chronic pain 05/06/2017 01/27/2021 Coronary artery disease invo lving [place] coronary artery of [place] heart without angina pectoris 09/11/2016 02/01/2021 Diabetes type 2, uncontrolled 11/17/2015 Pain, abdominal 08/16/2014 08/28/2020 Choledocholithiasis 04/06/2014 08/28/2020 Overview: 12/31/13 Cholelithiases 04/06/2014 04/06/2014 Immunizations Name Administration Dates Next Due Influenza Flu (PT Reported) 01/02/2016, 4 Influenza vaccine high dose age 65 and over 12/10/2019,01/23/2019,12/10/2017,12/07 Pneumoccoccal(Adult) Polysac charide PPSV23 01/17/2010,01/14/2002 Pneumococcal Conjugate PCV-13 02/28/2016 Zostavax 12/26/2012 Zostavax (Patient Reported) 12/16/2013 Social History Tobacco Use Types Packs/Day Years Used Date Smoking Tobacco: Former Cigarettes 0.3 1 950 - 05/02/2023 Smokeless Tobacco: Never Comments:3 cigs per day Alcohol Use Standard Drinks/Week Comments No 0 (1 standard drink = 0.6 oz pur e alcohol) Sex Assigned at Date Recorded Not on file Job Start Date Occupation Industry Not on file Not on file Not on file Last Filed Vital Signs Vital Sign Reading Time Taken Comments Blood Pressure 110/60 09/16/2023 11:30 AM EDT Pulse 72 09/16/2023 11:30 AM EDT Temperature 36.8 ??C (98.2 ??F) 02/06/2021 3:16 PM ES T Respiratory Rate 16 09/16/2023 11:30 AM EDT Oxygen Saturation 98% 08/19/2023 12:47 PM EDT Inhaled Oxygen Concentration - - Weight 55.8 kg (123 lb) 09/16/2023 11:30 AM EDT Height 172.7 cm (5' 8 ) 09/16/2023 11:30 AM EDT Body Mass Index 18.7 09/16/2023 11:30 AM EDT Plan of Treatment Health Maintenance Due Date Last Done Comments Covid-19 Vaccine (#1) 1940 DTAP/TDAP/TD (1 - Tdap) 06[birth year]19/1959 SHINGLES VACCINE (2 of 3) 02/20/2013 12/26/2012 DIABETES: ANNUAL EYE EXAM 02/19/20182016, 12/07/2016 (External Completion), 12/07/2016, Additional history exists DIABETES: ANNUAL FOOT EXAM 12/30/202012/30 (Completed), 2018, 05/01/2017, Additional history exists DIABETES: BLOOD SUGAR CONTRO L TEST (HGBA1C) 04/14/2021 01/12/2021, 05/09/2020, 12/10/2019, Additional history exists DIABETES/HEART DISEASE: MK AL CHOLESTEROL (LDL) 05/09/2021 05/09/2020, 12/10/2019, 09/01/2018, Additional history exists DIABETES: ANNUAL URINE PROTE IN TEST (MICROALBUMIN) 05/09/2021 05/09/2020, 12/10/2019, 09/01/2018, Additional history exists INFLUENZA (#1) 2023 12/10/2019, 12/31, 01/23/2019, Additional history exists PNEUMOCOCCAL VACCINE Completed 02/28/2016, 01/17/2010, 01/14/2002 Advance Directives For more information, please contact: [phone] Documents on File Type Date Recorded Patient Storm Chaser Expl anation Health Care Proxy 08/18/2021 9:12 AM HEALT HCARE PROXY Care Teams Certified Wellness Program Manager Relationship Specialty Start Date End Date Idalia Beckman DO PCP - General Internal Medicine 01/29/22 Ulises Solorio MD Counter Clerk Cardiovascular Disease 09/12/20 Jada Galeano NP Cardiology 08/14/23
--- OUTSIDE RECORDS SUMMARY | 2024-05-20 10:39 | XMS_ITS | Encounter Summary ---
Author Organization [facility] Address [address] [place] [address] Care Team Providers Care Company Controller Name Role Phone Idalia Beckman DO Primary Care Pro vider Unavailable Ulises Solorio MD Unavailable Alonzo Helms DO Primary Care Provider Leonor Ela Bain MD Primary Care Provider [phone] Idalia Beckman DO Primary Care Pro vider Unavailable [facility], Pcp Primary [facility] Idalia Beckman DO Primary Care Pro vider Unavailable Jada Galeano NP Unavailable [phone] Reason for Visit * Reason Onset Date Comments Faxed Order 11/04/2017 Encounter Details Date Type Department Care Team Description 11/04/2017 Telephone Adult [address] [phone] Idalia Beckman DO Faxed Order Social History [...] encounter Miscellaneous Notes * Telephone Encounter - Lena Noble - 11/25/2017 6:25 PM EDT Please review sign date and return modified order to Maximo GENAO * Telephone Encounter - Marcia Power - 11/04/2017 4:21 PM EDT Modified order for Dr Idalia Richey's signature documented in this encounter Plan of Treatment Not on file documented as of this encounter Visit Diagnoses Not on filedocumented in this encounter Care Teams Company Controller Relationship Specialty Start Date End Date Idalia Beckman DO PCP - General Internal Medicine 06/08/14 09/28/20 Alonzo Helms DO PCP - General Internal Medicine 09/29/20 1 Ela Velazco MD [address] [place] [address] PCP - General Internal Medicine 12/28/20 06/25/21 Idalia Beckman DO PCP - General Internal Medicine 06/26/21 07/06/21 [facility], Pcp [address] [place] [address] PCP - General Internal Medicine 07/07/21 01/28/22 Idalia Beckman DO PCP - General Internal Medicine 01/29/22 Ulises Solorio MD Block Out Machine Operator Cardiovascular Disease 09/12/20 Jada Galeano NP [address] [place] [address] Cardiology 08/14/23 documented as of this encounter
--- OUTSIDE RECORDS SUMMARY | 2024-05-20 10:39 | XMS_ITS | Encounter Summary ---
Author Organization [facility] Address [address] [place] [address] Care Team Providers Care Cheese Cutter Name Role Phone Idalia Beckman DO Primary Care Pro vider Unavailable Ulises Solorio MD Unavailable Alonzo Helms DO Primary Care Provider Leonor Ela Bain MD Primary Care Provider [phone] Idalia Beckman DO Primary Care Pro vider Unavailable [facility], Pcp Primary Care Provider [facility] Idalia Beckman DO Primary Care Pro vider Unavailable Jada Galeano NP Unavailable [phone] Reason for Visit * Reason Onset Date Comments hospital follow up 12/28/2016 [facility] Encounter Details Date Type Department Care Team Description 12/28/2016 Telephone Adult Medicine [address] [phone] Idalia Beckman DO hospital follow up ([facility]) Social History Tobacco Use Types Packs/Day Years [...] encounter Miscellaneous Notes * Telephone Encounter - Hanh Payton L.P.N. - 12/28/2016 4:43 PM EDT OK to wait. For saturday * Telephone Encounter - Yas Patinoteau - 12/28/2016 11:36 AM EDT Hospital follow up appointment needed Hospital patient was treated at: [facility] Was this only an ER visit or was the patient admitted to the hospital? Admitted to hospital Date of visit if ER visit only: N/A If patient was admitted what was the date of discharge? 12/26/16 Reason/diagnosis for visit or stay: liver blockage When was the patient told to follow up? As soon as possible Was visit or stay related to an injury? NO If yes, what was the date of injury (DOI)? N/A If yes, was the injury due to N/A documented in this encounter Plan of Treatment Not on file documented as of this encounter Visit Diagnoses Not on filedocumented in this encounter Care Teams Cheese Cutter Relationship Specialty Start Date End Date Idalia Beckman DO PCP - General Internal Medicine 06/08/14 09/28/20 Alonzo Helms DO PCP - General Internal Medicine 09/29/20 1 Ela Velazco MD [address] [place] [address] PCP - General Internal Medicine 12/28/20 06/25/21 Idalia Beckman DO PCP - General Internal Medicine 06/26/21 07/06/21 [facility], Pcp [address] [place] [address] PCP - General Internal Medicine 07/07/21 01/28/22 Idalia Beckman DO PCP - General Internal Medicine 01/29/22 Ulises Solorio MD Pelt Salter Cardiovascular Disease 09/12/20 Jada Galeano NP [address] [place] [address] Cardiology 08/14/23 documented as of this encounter
--- OUTSIDE RECORDS SUMMARY | 2024-05-20 10:39 | XMS_ITS | Encounter Summary ---
Author Organization [facility] Address [address] [place] [address] Care Team Providers Care Sap Basis Name Role Phone Fauzia Murillo, Idalia DO Primary Care Pro vider Unavailable Tova Emmanuel Primary Care Provider Unavailabl e [place] Colasacco, Idalia DO Primary Care Pro vider Unavailable Ulises Solorio MD Unavailable Alonzo Helms DO Primary Care Provider Leonor Ela Bain MD Primary Care Provider [phone] [place] Colasacco, Idalia DO Primary Care Pro vider Unavailable [facility], Pcp Primary Care Provider Unavailabl e [place] Colasacco, Idalia DO Primary Care Pro vider Unavailable Jada Galeano NP Unavailable [phone] Reason for Visit * Reason Onset Date Comments other 03/08/2014 Encounter Details Date Type Department Care Team Description 03/08/2014 Telephone Adult Medicine [address] [id number] Idalia Beckman DO other Social History Tobacco Use Types Packs/Day Years [...] Telephone Encounter - Mary Cates M.A. - 03/12/2014 8:09 AM EST Pt was seen by pcp 03/03/14 * Telephone Encounter - Mary Cates M.A. - 03/12/2014 8:08 AM EST Pt has not been seen by Dr. louise * Telephone Encounter - Alisa Roberson M.A. - 03/08/2014 1:05 PM EST Please put msg below on a separate encounter as its a refill request the other is a DME request * Telephone Encounter - Leatha Waldron - 03/08/2014 12:39 PM EST Daughter calling states patient also needs rx for Oxycodone .. Please advise. * Telephone Encounter - Thea Carrillo - 03/08/2014 11:45 AM EST Per [facility], patients needs a script for Ensure from Idalia Richey. Needs to be faxed to [facility] [employer] [phone] documented in this encounter Plan of Treatment Not on file documented as of this encounter Visit Diagnoses Not on filedocumented in this encounter Care Teams Sap Basis Relationship Specialty Start Date End Date Idalia Beckman DO PCP - General Internal Medicine 02/03/14 05/29/14 Tova Emmanuel PCP - General Family Practice 05/30/14 06/07/14 Idalia Beckman DO PCP - General Internal Medicine 06/08/14 09/28/20 Alonzo Helms DO PCP - General Internal Medicine 09/29/20 1 Ela Velazco MD [address] [place], [place] [phone] PCP - General Internal Medicine 12/28/20 06/25/21 Idalia Beckman DO PCP - General Internal Medicine 06/26/21 07/06/21 [facility], Pcp [address] [place] [address] PCP - General Internal Medicine 07/07/21 01/28/22 Idalia Beckman DO PCP - General Internal Medicine 01/29/22 Ulises Solorio MD Production Planner Cardiovascular Disease 09/12/20 Jada Galeano NP [address] [place] [address] Cardiology 08/14/23 documented as of this encounter
--- OUTSIDE RECORDS SUMMARY | 2024-05-20 10:39 | XMS_ITS | Encounter Summary ---
Author Organization [facility] Address [address] [place] [address] Care Team Providers Care Power Plant Superintendent Name Role Phone Idalia Beckman DO Primary Care Pro vider Unavailable Ulises Solorio MD Unavailable Alonzo Helms DO Primary Care Provider Leonor Ela Bain MD Primary Care Provider [phone] Idalia Beckman DO Primary Care Pro vider Unavailable [facility]cp Primary Care [facility] Idalia Beckman DO Primary Care Pro vider Unavailable Jada Galeano NP Unavailable [phone] Encounter Details Date Type Department Care Team Description 10/09/2019 Cellular Equipment Repairer Report Medical Records [address] [place] [address] Jesse Farley MD Social History Tobacco Use Types Packs/Day Years [...] on filedocumented in this encounter Care Teams Power Plant Superintendent Relationship Specialty Start Date End Date Idalia Beckman DO PCP - General Internal Medicine 06/08/14 09/28/20 Alonzo Helms DO PCP - General Internal Medicine 09/29/20 1 Ela Velazco MD [address] [place], [place] [id number] PCP - General Internal Medicine 12/28/20 06/25/21 Idalia Beckman DO PCP - General Internal Medicine 06/26/21 07/06/21 [facility]cp [address] [place] [address] PCP - General Internal Medicine 07/07/21 01/28/22 Idalia Beckman DO PCP - General Internal Medicine 01/29/22 Ulises Solorio MD Cherry Dipper Cardiovascular Disease 09/12/20 Jada Galeano NP [address] [place] [address] Cardiology 08/14/23 documented as of this encounter
--- OUTSIDE RECORDS SUMMARY | 2024-05-20 10:39 | XMS_ITS | Encounter Summary ---
Author Organization [facility] Address [address] [place] [address] Care Team Providers Care Cleaner Operator Name Role Phone Idalia Beckman DO Primary Care Pro vider Unavailable Ulises Solorio MD Unavailable Alonzo Helms DO Primary Care Provider Leonor Ela Bain MD Primary Care Provider [phone] Ty Beckmanabela DO Primary Care Pro vider Unavailable [facility], Pcp Primary Care Provider [facility] Fauzia Trejoo, Idalia DO Primary Care Pro vider Unavailable Jada Galeano NP Unavailable [phone] Reason for Visit * Reason Onset Date Comments REFERRAL 12/19/2016 Encounter Details Date Type Department Care Team Description 12/19/2016 Telephone Gastroenterology - [address] [phone] Kalen Dickson MD REFERRAL Social History Tobacco Use Types Packs/Day Years [...] encounter Miscellaneous Notes * Telephone Encounter - Scarlett Winchester Rn - 12/20/2016 9:45 AM EDT Message forwarded to pcp Spoke to Kem in the MRI department, she gave the code for mri [id number] Referral set up please review and order set up for mri please review * Telephone Encounter - Kalen Dickson MD - 12/20/2016 9:00 AM EDT Order MRI of abdomen without contrast, and ask them to do MRCP in the comment section to rule out pancreatic mass/ stone in bile duct in the comments section. Ask for GI consult in the usual way,k but external, at [facility]. Ask specifically for Dr. Murcia or Jud. It would also help if you called one of them and spke to him personally for purposes of planing consult. Patient would need to bring the MRI films to the consult. * Telephone Encounter - Idalia Murillo DO - 12/20/2016 8:57 AM EDT Thank you, I ran him by Dr. Auguste yesterday. I didn't know I could order MRCP? Is it a matter of [facility] to set up? * Telephone Encounter - Kalen Dickson MD - 12/19/2016 4:[address] Cage: Kindly order MRCP for this patient and refer in consultation to Dr. Murcia or Dr. Renner at [facility] to evaluate for possible endoscopic ultrasound/ERCP, given increasing dilation of common duct and pancreatic duct. and elevated LFTs. Rule out choledochlithiasis, biliary stricture/tumor /pancreatic tumor. (Pancreatic tumor high on differential list, given dilated CBD and pancreatic duct.) Patient should be seen soon at [facility]. * Telephone Encounter - Petrona Villeda - 12/19/2016 3:15 PM EDT Urgent or Routine? Please review Reason for referral: Consultation for: Weight Loss and early satiety, pruritis and very elev lfts conc for cholestatic liver disease documented in this encounter Plan of Treatment Not on file documented as of this encounter Visit Diagnoses Not on filedocumented in this encounter Care Teams Cleaner Operator Relationship Specialty Start Date End Date Idalia Beckman DO PCP - General Internal Medicine 06/08/14 09/28/20 Alonzo Helms DO PCP - General Internal Medicine 09/29/20 1 Ela Velazco MD [address] [place] [address] PCP - General Internal Medicine 12/28/20 06/25/21 Idalia Beckman DO PCP - General Internal Medicine 06/26/21 07/06/21 [facility], Pcp [address] [place] [address] PCP - General Internal Medicine 07/07/21 01/28/22 Idalia Beckman DO PCP - General Internal Medicine 01/29/22 Ulises Solorio MD Leather Production Artisan Cardiovascular Disease 09/12/20 Jada Galeano NP [address] [place] [address] Cardiology 08/14/23 documented as of this encounter
--- OUTSIDE RECORDS SUMMARY | 2024-05-20 10:39 | XMS_ITS | Encounter Summary ---
Author Organization [facility] Address [address] [place] [address] Care Team Providers Care Technical Manager Chemical Plant Name Role Phone Idalia Beckman DO Primary Care Pro vider Unavailable Ulises Solorio MD Unavailable Alonzo Helms DO Primary Care Provider Leonor Ela Bain MD Primary Care Provider [phone] Idalia Beckman DO Primary Care Pro vider Unavailable [facility], Pcp Primary Care Provider [facility] Idalia Beckman DO Primary Care Pro vider Unavailable Jada Galeano NP Unavailable [phone] Encounter Details Date Type Department Care Team Description 12/26/2016 Hospital Medical Records [address] [place] [address] [facility] Social History Tobacco Use Types Packs/Day Years [...] on filedocumented in this encounter Care Teams Technical Manager Chemical Plant Relationship Specialty Start Date End Date Idalia Beckman DO PCP - General Internal Medicine 06/08/14 09/28/20 Alonzo Helms DO PCP - General Internal Medicine 09/29/20 1 Ela Velazco MD [address] [place] [address] PCP - General Internal Medicine 12/28/20 06/25/21 Idalia Beckman DO PCP - General Internal Medicine 06/26/21 07/06/21 [facility], Pcp [address] [place] [address] PCP - General Internal Medicine 07/07/21 01/28/22 Idalia Beckman DO PCP - General Internal Medicine 01/29/22 Ulises Solorio MD Manager Compensation Cardiovascular Disease 09/12/20 Jada Galeano, REENA [address] [place] [address] Cardiology 08/14/23 documented as of this encounter
--- OUTSIDE RECORDS SUMMARY | 2024-05-20 10:39 | XMS_ITS | Encounter Summary ---
Author Organization [facility] Address [address] [place] [address] Care Team Providers Care Licensed Pesticide Applicator Name Role Phone Idalia Beckman DO Primary Care Pro vider Unavailable Ulises Solorio MD Unavailable Alonzo Helms DO Primary Care Provider Leonor Ela Bain MD Primary Care Provider [phone] Idalia Beckman DO Primary Care Pro vider Unavailable [facility], Pcp Primary Care Provider [facility] e Idalia Beckman DO Primary Care Pro vider Unavailable Jada Galeano NP Unavailable [phone] Reason for Referral * Non GENE (Urgent) - Authorized/Booked Specialty Diagnoses / Procedures Referred By Alonso linn Referred To Contact Gastroenterology Procedures REFERRAL TO GASTROENTEROLOGY Idalia Beckman DO [address] [place] [address] Gastro/[address] [address] Referral ID Status Reason Start Date Expiration Date V isits Requested Visits Authorized CONS TO [id number] Authorized/ Booked 12/19/2016 12/19/2017 1 1 Encounter Details Date Type Department Care Team Description 12/19/2016 Orders Only Adult Medicine [address] [address] Idalia Beckman DO Elevated LFTs (Primary Dx); Cholestasis Social History Tobacco Use Types Packs/Day Years [...] on file documented as of this encounter Results * (ABNORMAL) CBC (AUTO DIFF PLATELET) (12/20/2016 11:20 AM EDT) WBC 8.4 4.8 - 10.8 x10-3 12/20/2016 11:49 AM EDT [facility] RBC 5.6(H) 4.5 - 5.5 x10-6 12/20/2016 11:49 AM EDT [facility] HGB 16.0 13.5 - 17.5 g/dl 12/20/2016 11:49 AM EDT [facility] HCT 48.2 42 - 54 % 12/20/2016 11:49 AM EDT [facility] MCV 85.6 79 - 98 fl 12/20/2016 11:49 AM EDT [facility] MCH 28.4 27 - 32 pg 12/20/2016 11:49 AM EDT [facility] MCHC 33.2 32 - 37 g/dl 12/20/2016 11:49 AM EDT [facility] RDW 16.0(H) 11 - 15 % 12/20/2016 11:49 AM EDT [facility] PLT COUNT 257 130 - 400 x10-3 12/20/2016 11:49 AM EDT [facility] MEAN PLATELET VOLUME 11.3(H) 7 - 11 fl 12/20/2016 11:49 AM EDT [facility] NEUT % 72.6 41 - 85 % 12/20/2016 11:49 AM EDT [facility] LYMPH % 18.1 15 - 48 % 12/20/2016 11:49 AM EDT [facility] MONO % 8.2 0 - 12 % 12/20/2016 11:49 AM EDT [facility] EOS % 0.7 0 - 5 % 12/20/2016 11:49 AM EDT [facility] BASO % 0.4 0 - 2 % 12/20/2016 11:49 AM EDT [facility] 12/20/2016 11:2 0 AM EDT 12/20/2016 11:20 AM EDT Idalia [place] Colasacco DO LAB [address] * LIPASE (12/20/2016 11:20 AM EDT) LIPASE 36 13 - 60 U/L 12/20/2016 5:33 PM EDT [facility] 12/20/2016 11:2 0 AM EDT 12/20/2016 11:20 AM EDT Idalia [place] Colasacco DO LAB [address] * AMYLASE (12/20/2016 11:20 AM EDT) AMYLASE 62 0 - 100 U/L 12/20/2016 5:33 PM EDT [facility] 12/20/2016 11:2 0 AM EDT 12/20/2016 11:20 AM EDT Idalia [place] Colasacco DO LAB [address] * PROSTATE SPEC. AG, SCREEN (12/20/2016 11:20 AM EDT) PSA SCREEN 0.3 0.0 - 4.0 ng/ml 12/20/2016 4:01 PM EDT [facility] 12/20/2016 11:2 0 AM EDT 12/20/2016 11:20 AM EDT Idalia Cage Colbhavin [facility] * (ABNORMAL) GGTP ENZYME ASSAY (12/20/2016 11:20 AM EDT) GAMMA GLUTAMYL TRANSFERASE 1475(H) 7 - 64 U/L 12/20/2016 2:10 PM EDT [facility] Comment:RECHECKED 12/20/2016 11:2 0 AM EDT 12/20/2016 11:20 AM EDT Idalia Cage ColJentro Technologiesalex [facility] Performing Organization Address City/[facility]/ZIP Co de Phone Number [facility]. * SONO ABDOMEN COMPLETE (12/19/2016 11:45 AM EDT) 12/19/2016 11:5 7 AM EDT Impressions ANNETTE MARIE OTHER EXTERNAL - 12/19/2016 12:07 PM EDT IMPRESSION: 1. Status post cholecystectomy with interval increase in intrahepatic and extrahepatic biliary dilatation compared to ultrasound from 09/26/2016. Mild prominence of the pancreatic duct also has increased compared to the prior study. MRCP is recommended for more complete evaluation. 2. Limited evaluation of the pancreas. 3. Additional findings, as detailed above. Narrative ANNETTE MARIE OTHER EXTERNAL - 12/19/2016 12:07 PM EDT ULTRASOUND ABDOMEN COMPLETE INDICATION: Acutely abnormal LFTs; cholestasis. COMPARISON: Abdominal ultrasound study dated 09/25/2016. FINDINGS: The liver is normal in size and echogenicity. There is evidence of intrahepatic and extrahepatic biliary dilatation with the common hepatic duct measuring approximately 0.9 cm in transverse dimension and the common bile duct measuring up to 1.2 cm in transverse dimension, increased compared to the prior study. No definite intraductal calculi on the submitted images. Preserved hepatopedal flow is documented within the main portal vein. The gallbladder is surgically absent. No dedicated gallbladder fossa images are submitted. Limited evaluation of the pancreas due to overlying bowel gas. The visualized pancreatic head and body are normal in size and echogenicity. Prominence of the pancreatic duct measures 0.4 cm in transverse dimension. The spleen measures 9.8 cm and is unremarkable in appearance. The right kidney measures 10.6 cm and the left kidney measures 11.6 cm. No pelvicalyceal dilatation or intrarenal calculi are identified on either side. The abdominal aorta is normal in caliber and the inferior vena cava is patent. There is no free fluid in the upper abdomen. Procedure Note Lela Lopez, DO - 12/19/2016 ULTRASOUND ABDOMEN COMPLETE INDICATION: Acutely abnormal LFTs; cholestasis. COMPARISON: Abdominal ultrasound study dated 09/25/2016. FINDINGS: The liver is normal in size and echogenicity. There is evidence ofintrahepatic and extrahepatic biliary dilatation with the common hepatic duct measuringapproximately 0.9 cm in transverse dimension and the common bile duct measuring up to 1.2 cm intransverse dimension, increased compared to the prior study. No definite intraductal calculi onthe submitted images. Preserved hepatopedal flow is documented within the main portal vein. The gallbladder is surgically absent. No dedicated gallbladder fossaimages are submitted. Limited evaluation of the pancreas due to overlying bowel gas. Thevisualized pancreatic head and body are normal in size and echogenicity. Prominence of the pancreaticduct measures 0.4 cm in transverse dimension. The spleen measures 9.8 cm and is unremarkable in appearance. The right kidney measures 10.6 cm and the left kidney measures 11.6 cm. Nopelvicalyceal dilatation or intrarenal calculi are identified on either side. The abdominal aorta is normal in caliber and the inferior vena cava ispatent. There is no free fluid in the upper abdomen. IMPRESSION IMPRESSION: 1. Status post cholecystectomy with interval increase in intrahepatic andextrahepatic biliary dilatation compared to ultrasound from 09/26/2016. Mild prominence of thepancreatic duct also has increased compared to the prior study. MRCP is recommended for morecomplete evaluation. 2. Limited evaluation of the pancreas. 3. Additional findings, as detailed above. Idalia GARCIAOUN D [place] OTHER EXTERNAL documented in this encounter Visit Diagnoses Diagnosis Elevated LFTs- Primary Other abnormal blood chemistry Cholestasis Other specified disorders of biliary tract Elevated LFTs Other abnormal blood chemistry Cholestasis Other specified disorders of biliary tract documented in this encounter Care Teams Licensed Pesticide Applicator Relationship Specialty Start Date End Date Idalia Beckman DO PCP - General Internal Medicine 06/08/14 09/28/20 Alonzo Helms DO PCP - General Internal Medicine 09/29/20 1 Ela Velazco MD [address] [place] [address] PCP - General Internal Medicine 12/28/20 06/25/21 Idalia Beckman DO PCP - General Internal Medicine 06/26/21 07/06/21 [facility], Pcp [address] [place] [address] PCP - General Internal Medicine 07/07/21 01/28/22 Idalia Beckman DO PCP - General Internal Medicine 01/29/22 Ulises Solorio MD Manager Employee Benefits Cardiovascular Disease 09/12/20 Jada Galeano NP [address] [place] [address] Cardiology 08/14/23 documented as of this encounter
--- OUTSIDE RECORDS SUMMARY | 2024-05-20 10:39 | XMS_ITS | Encounter Summary ---
Author Organization [facility] Address [address] [place] [address] Care Team Providers Care Judge'S Clerk Name Role Phone Ulises Solorio MD Unavailable Idalia Beckman DO Primary Care Pro vider Unavailable Jada Galeano NP Unavailable [phone] Encounter Details Date Type Department Care Team Description 10/24/2022 SCAN Medical Records [address] [place] [address] Social History Tobacco Use Types Packs/Day Years [...] on filedocumented in this encounter Care Teams Judge'S Clerk Relationship Specialty Start Date End Date Idalia Beckman DO PCP - General Internal Medicine 01/29/22 Ulises Solorio MD Drama Teacher Cardiovascular Disease 09/12/20 Jada Galeano NP Cardiology 08/14/23 documented as of this encounter
--- OUTSIDE RECORDS SUMMARY | 2024-05-20 10:39 | XMS_ITS | Encounter Summary ---
Author Organization [facility] Address [address] [place] [address] Care Team Providers Care Real Estate Paralegal Name Role Phone Adelaida Beckmanla DO Primary Care Pro vider Unavailable Ulises Solorio MD Unavailable Alonzo Helms DO Primary Care Provider Leonor Ela Bain MD Primary Care Provider [phone] Fauzia Colchinoo, Idalia DO Primary Care Pro vider Unavailable [facility], Pcp Primary Care Provider [facility] Fauzia Colhariscco, Idalia DO Primary Care Pro vider Unavailable Jada Galeano NP Unavailable [phone] Encounter Details Date Type Department Care Team Description 12/24/2016 Hospital Medical Records [address] [place] [address] Isma Roger MD [address] [place] [address] [address] [place] [address] Social History Tobacco Use Types Packs/Day Years [...] on filedocumented in this encounter Care Teams Real Estate Paralegal Relationship Specialty Start Date End Date Idalia Beckman DO PCP - General Internal Medicine 06/08/14 09/28/20 Alonzo Helms DO PCP - General Internal Medicine 09/29/20 1 Ela Velazco MD [address] [place] [address] PCP - General Internal Medicine 12/28/20 06/25/21 Idalia Beckman DO PCP - General Internal Medicine 06/26/21 07/06/21 [facility], [address] [address] PCP - General Internal Medicine 07/07/21 01/28/22 Idalia Beckman DO PCP - General Internal Medicine 01/29/22 Ulises Solorio MD Home Demonstration Agent Cardiovascular Disease 09/12/20 Jada Galeano NP [address] [place] [address] Cardiology 08/14/23 documented as of this encounter
--- OUTSIDE RECORDS SUMMARY | 2024-05-20 10:39 | XMS_ITS | Encounter Summary ---
Author Organization [facility] Address [address] [place] [address] Care Team Providers Care Director Of Corporate Responsibility Name Role Phone Idalia Beckman DO Primary Care Pro vider Unavailable Ulises Solorio MD Unavailable Alonzo Helms DO Primary Care Provider Leonor Ela Bain MD Primary Care Provider [phone] Fauzia TrejooTyIdalia DO Primary Care Pro vider Unavailable [facility], Pcp Primary Care Provider [facility] Fauzia TrejooTyIdalia DO Primary Care Pro vider Unavailable Jada Galeano NP Unavailable [phone] Encounter Details Date Type Department Care Team Description 04/21/2018 Refill Gastroenterology - [address] [place] [address] Priya Gabriel DScPAS Social History Tobacco Use Types Packs/Day Years [...] encounter Miscellaneous Notes * Telephone Encounter - Petrona Brooksd - 04/21/2018 10:27 AM EST Lam stated they sent a fax a while ago to Lissett Gabriel for refill. Has not heard back documented in this encounter Plan of Treatment Not on file documented as of this encounter Visit Diagnoses Not on filedocumented in this encounter Care Teams Director Of Corporate Responsibility Relationship Specialty Start Date End Date Idalia Beckman DO PCP - General Internal Medicine 06/08/14 09/28/20 Alonzo Helms DO PCP - General Internal Medicine 09/29/20 1 Ela Velazco MD [address] [place] [address] PCP - General Internal Medicine 12/28/20 06/25/21 Idalia Beckman DO PCP - General Internal Medicine 06/26/21 07/06/21 [facility], Pcp [address] [place] [address] PCP - General Internal Medicine 07/07/21 01/28/22 Idalia Beckman DO PCP - General Internal Medicine 01/29/22 Ulises Solorio MD Communication Center Operator Cardiovascular Disease 09/12/20 Jada Galeano NP [address] [place] [address] Cardiology 08/14/23 documented as of this encounter
--- OUTSIDE RECORDS SUMMARY | 2024-05-20 10:39 | XMS_ITS | Encounter Summary ---
Author Organization [facility] Address [address] [place] [address] Care Team Providers Care Past Due Accounts Clerk Name Role Phone Ulises Solorio MD Unavailable Alonzo Helms DO Primary Care Provider Leonor Ela Bain MD Primary Care Provider [phone] [place] Colasacco, Idalia DO Primary Care Pro vider Unavailable Formerly [facility], Pcp Primary Care Provider Unavailabl e [place] Colasacco, Idalia DO Primary Care Pro vider Unavailable Jada Glaeano NP Unavailable [phone] Encounter Details Date Type Department Care Team Description 11/16/2020 Orders Only Medical Records [address] [place] [address] Mariaelena Ge MD [address] [place] [address] [place] [phone] Social History Tobacco Use Types Packs/Day Years [...] Name Priority Date/Time Associated Diagnosis Comments OUTSIDE VASCULAR STUDY Routine 11/15/2020 documented in this encounter Results * OUTSIDE VASCULAR STUDY (11/15/2020) Mariaelena Ge MD CARDIOLOGY documented in this encounter Visit Diagnoses Not on filedocumented in this encounter Care Teams Past Due Accounts Clerk Relationship Specialty Start Date End Date Alonzo Helms DO PCP - General Internal Medicine 09/29/20 1 Ela Velazco MD [address] [place] [address] PCP - General Internal Medicine 12/28/20 06/25/21 Idalia Beckman [address] [address] PCP - General Internal Medicine 06/26/21 07/06/21 [facility], Pcp [address] [place] [address] PCP - General Internal Medicine 07/07/21 01/28/22 Idalia Beckman [address] [address] PCP - General Internal Medicine 01/29/22 Ulises Solorio MD Hair Tinter Cardiovascular Disease 09/12/20 Jada Galeano NP [address] [place] [address] Cardiology 08/14/23 documented as of this encounter
--- OUTSIDE RECORDS SUMMARY | 2024-05-20 10:39 | XMS_ITS | Encounter Summary ---
Author Organization [facility] Address [address] [place] [address] Care Team Providers Care Shells Inspector Name Role Phone Idalia Beckman DO Primary Care Pro vider Unavailable Ulises Solorio MD Unavailable Alonzo Helms DO Primary Care Provider Leonor Ela Bain MD Primary Care Provider [phone] Idalia Beckman DO Primary Care Pro vider Unavailable [facility], Pcp Primary Care [facility] Idalia Beckman DO Primary Care Pro vider Unavailable Jada Galeano NP Unavailable [phone] Reason for Visit * Reason Onset Date Comments refill request 09/06/2020 Encounter Details Date Type Department Care Team Description 09/06/2020 Refill Adult Medicine [address] [id number] Idalia Beckman DO refill request Social History [...] have Coronavirus / COVID-19? No / Unsure 09/05/2020 2:42 PM EDT documented as of this encounter Miscellaneous Notes * Telephone Encounter - Carla Dykes M.A. - 09/06/2020 4:40 PM EDT Last office visit 08/26/20 Next office visit 09/12/20 Lab Results Component Value Date NA 139 05/09/2020 K 4.2 05/09/2020 CO2 29 05/09/2020 CL 104 05/09/2020 BUN 13 05/09/2020 CREAT 0.84 05/09/2020 GLU 95 05/09/2020 CA 9.2 05/09/2020 GFR > 60 05/09/2020 * Telephone Encounter - Jessica Lorin - 09/06/2020 4:07 PM EDT Patient would like script to be: E-PRESCRIBED/FAXED TO PHARMACY WHEN WAS THE PATIENT'S LAST APPOINTMENT IN ADULT MEDICINE? 08/26/20 WHEN WAS THE LAST TIME THE PATIENT SAW THEIR PCP? Same as above Does patient have an upcoming appointment? Yes 09/12/20 (THE MEDICATION REQUESTED IS ON THE MED [...] N/A Patients current insurance carrier is: Payor: [employer] / Plan: [employer] $0 [place] [id number] / Product Type: HMO [id number] documented in this encounter Plan of Treatment Not on file documented as of this encounter Visit Diagnoses Not on filedocumented in this encounter Care Teams Shells Inspector Relationship Specialty Start Date End Date Idalia Beckman DO PCP - General Internal Medicine 06/08/14 09/28/20 Alonzo Helms DO PCP - General Internal Medicine 09/29/20 1 Ela Velazco MD [address] [place] [address] PCP - General Internal Medicine 12/28/20 06/25/21 Idalia Beckman DO PCP - General Internal Medicine 06/26/21 07/06/21 [facility], Pcp [address] [place] [address] PCP - General Internal Medicine 07/07/21 01/28/22 Idalia Beckman DO PCP - General Internal Medicine 01/29/22 Ulises Solorio MD Computer Meteorologist Cardiovascular Disease 09/12/20 Jada Galeano NP [address] [place] [address] Cardiology 08/14/23 documented as of this encounter
--- OUTSIDE RECORDS SUMMARY | 2024-05-20 10:39 | XMS_ITS | Encounter Summary ---
Author Organization [facility] Address [address] [place] [address] Care Team Providers Care Photographic Reproduction Technician Name Role Phone Idalia Beckman DO Primary Care Pro vider Unavailable Ulises Solorio MD Unavailable Alonzo Helms DO Primary Care Provider Leonor Eal Bain MD Primary Care Provider [phone] Fauzia TrejooTyIdalia DO Primary Care Pro vider Unavailable [facility], Pcp Primary Care [facility] Fauzia Trejoo, Idalia DO Primary Care Pro vider Unavailable Jada Galeano NP Unavailable [phone] Encounter Details Date Type Department Care Team Description 10/22/2017 Home Health Certification Medical Records [address] [place] [address] [facility] Nurse [facility], [address] [id number] Social History Tobacco Use Types Packs/Day Years [...] on filedocumented in this encounter Care Teams Photographic Reproduction Technician Relationship Specialty Start Date End Date Idalia Beckman DO PCP - General Internal Medicine 06/08/14 09/28/20 Alonzo Helms DO PCP - General Internal Medicine 09/29/20 1 Ela Velazco MD [address] [place] [address] PCP - General Internal Medicine 12/28/20 06/25/21 Idalia Beckman, PCP - General Internal Medicine 06/26/21 07/06/21 [facility], [address] [address] PCP - General Internal Medicine 07/07/21 01/28/22 Idalia Beckman DO PCP - General Internal Medicine 01/29/22 Ulises Solorio MD Hydraulic Strainer Operator Cardiovascular Disease 09/12/20 Jada Galeano NP [address] [place] [address] Cardiology 08/14/23 documented as of this encounter
--- OUTSIDE RECORDS SUMMARY | 2024-05-20 10:40 | XMS_ITS | Encounter Summary ---
Author Organization [facility] Address [address] [place] [address] Care Team Providers Care Debt Recovery Officer Name Role Phone Idalia Beckman DO Primary Care Pro vider Unavailable Ulises Solorio MD Unavailable Alonzo Helms DO Primary Care Provider Leonor Ela Bain MD Primary Care Provider [phone] Idalia Beckman DO Primary Care Pro vider Unavailable [facility], Pcp Primary Care Provider Unavailabl e Idalia Beckman DO Primary Care Pro vider Unavailable Jada Galeano NP Unavailable [phone] Reason for Visit * Reason Comments E-prescribe Rx Request Encounter Details Date Type Department Care Team Description 09/02/2020 Refill Adult Medicine [address] [address] Idalia Beckman DO E-prescribe Rx Request Social [...] Telephone Encounter - Mary Cates M.A. - 09/02/2020 4:13 PM EDT Lab Results Component Value Date CHOL 133 05/09/2020 LDL 67 05/09/2020 HDL 36 05/09/2020 TRIG 154 05/09/2020 SGOT 18 12/10/2019 SGPT 37 12/10/2019 Last appt 08/26/20 * Telephone Encounter - Kanchan Faye - 09/02/2020 3:50 PM EDT Patient would like script to be: E-PRESCRIBED/FAXED TO PHARMACY WHEN WAS THE PATIENT'S LAST APPOINTMENT IN ADULT MEDICINE? 08/26/2020 WHEN WAS THE LAST TIME THE PATIENT SAW THEIR PCP? Same as above Does patient have an upcoming appointment? Yes 09/12/2020 (THE MEDICATION REQUESTED IS ON THE MED [...] N/A Patients current insurance carrier is: Payor: [employer] / Plan: [employer] $0 SIGEL [id number] / Product Type: HMO [id number] documented in this encounter Plan of Treatment Not on file documented as of this encounter Visit Diagnoses Not on filedocumented in this encounter Care Teams Debt Recovery Officer Relationship Specialty Start Date End Date Idalia Beckman DO PCP - General Internal Medicine 06/08/14 09/28/20 Alonzo Helms DO PCP - General Internal Medicine 09/29/20 Ela Velazco MD [address] [place] [address] PCP - General Internal Medicine 12/28/20 06/25/21 Idalia Beckman DO PCP - General Internal Medicine 06/26/21 07/06/21 [facility], Pcp [address] [place] [address] PCP - General Internal Medicine 07/07/21 01/28/22 Idalia Beckman DO PCP - General Internal Medicine 01/29/22 Ulises Solorio MD Nuclear Control Room Operator Cardiovascular Disease 09/12/20 Jada Galeano NP [address] [place] [address] Cardiology 08/14/23 documented as of this encounter
--- OUTSIDE RECORDS SUMMARY | 2024-05-20 10:40 | XMS_ITS | Encounter Summary ---
Author Organization [facility] Address [address] [place] [address] Care Team Providers Care Janitor And Cleaner Name Role Phone Ulises Solorio MD Unavailable Idalia Beckman DO Primary Care Pro vider Unavailable Jada Galeano NP Unavailable [phone] Encounter Details Date Type Department Care Team Description 04/17/2022 [facility] Vascular Surgery [address] [phone] Felipe Courtney MD [address] [address] Social History Tobacco Use Types Packs/Day [...] suspected to have Coronavirus/COVID-19? No / Unsure 03/19/2022 3:03 PM EST documented as of this encounter Plan of Treatment Not on file documented as of this encounter Visit Diagnoses Not on filedocumented in this encounter Care Teams Janitor And Cleaner Relationship Specialty Start Date End Date Idalia Beckman DO PCP - General Internal Medicine 01/29/22 Ulises Solorio MD Physician Extender Cardiovascular Disease 09/12/20 Jada Galeano NP Cardiology 08/14/23 documented as of this encounter
--- OUTSIDE RECORDS SUMMARY | 2024-05-20 10:40 | XMS_ITS | Encounter Summary ---
Author Organization [facility] Address [address] [place] [address] Care Team Providers Care Enterprise Analyst Name Role Phone Idalia Beckman DO Primary Care Pro vider Unavailable Ulises Solorio MD Unavailable Alonzo Helms DO Primary Care Provider Leonor Ela Bain MD Primary Care Provider [phone] Idalia Beckman DO Primary Care Pro vider Unavailable [facility], Pcp Primary Care Provider Unavailabl e Idalia Beckman DO Primary Care Pro vider Unavailable Jada Galeano NP Unavailable [phone] Reason for Visit * Reason Comments E-prescribe Rx Request Encounter Details Date Type Department Care Team Description 09/25/2018 Refill Adult Medicine [address] [address] Idalia Beckman DO E-prescribe Rx Request Social [...] Telephone Encounter - Carla Dykes M.A. - 09/25/2018 9:09 AM EDT Lab Results Component Value Date CHOL 149 09/01/2018 LDL 63 09/01/2018 HDL 31 09/01/2018 TRIG 278 09/01/2018 SGOT 13 05/30/2018 SGPT 20 05/30/2018 * Telephone Encounter - Jasmin Huang - 09/25/2018 8:44 AM EDT Patient would like script to be: E-PRESCRIBED/FAXED TO PHARMACY WHEN WAS THE PATIENT'S LAST APPOINTMENT IN ADULT MEDICINE? 09-09-18 WHEN WAS THE LAST TIME THE PATIENT SAW THEIR PCP? Same as above Does patient have an upcoming appointment? Yes 12-30-18 (THE MEDICATION REQUESTED IS ON THE MED [...] N/A Patients current insurance carrier is: Payor: [employer] / Plan: [employer] $0 [place] [id number] / Product Type: HMO [id number] documented in this encounter Plan of Treatment Not on file documented as of this encounter Visit Diagnoses Diagnosis Cerebrovascular accident (CVA) within last 3 months Paroxysmal atrial fibrillation (HCC) Atrial fibrillation documented in this encounter Care Teams Enterprise Analyst Relationship Specialty Start Date End Date Idalia Beckman DO PCP - General Internal Medicine 06/08/14 09/28/20 Alonzo Helms DO PCP - General Internal Medicine 09/29/20 1 Ela Velazco MD [address] [place] [address] PCP - General Internal Medicine 12/28/20 06/25/21 Idalia Beckman DO PCP - General Internal Medicine 06/26/21 07/06/21 [facility] Later [facility], [address] [address] PCP - General Internal Medicine 07/07/21 01/28/22 Idalia Beckman DO PCP - General Internal Medicine 01/29/22 Ulises Solorio MD Mash Filter Cloth Changer Cardiovascular Disease 09/12/20 Jada Galeano NP [address] [place] [address] Cardiology 08/14/23 documented as of this encounter
--- OUTSIDE RECORDS SUMMARY | 2024-05-20 10:40 | XMS_ITS | Encounter Summary ---
Author Organization [facility] Address [address] [place] [address] Care Team Providers Care Seismograph Computer Name Role Phone Ulises Solorio MD Unavailable dIalia Beckman DO Primary Care Pro vider Unavailable Jada Galeano NP Unavailable [phone] Reason for Visit * Reason Onset Date Comments No Call No Show 12/10/2022 Encounter Details Date Type Department Care Team Description 12/10/2022 Telephone Vascular Surgery - [address] [place] [phone] Felipe Courtney MD [address] [place] [phone] No Call No Show Social History Tobacco Use Types Packs/Day Years [...] encounter Miscellaneous Notes * Telephone Encounter - Paco Ugarte - 12/10/2022 11:43 AM EDT No show 12/07 lvm to cb to r/s documented in this encounter Plan of Treatment Not on file documented as of this encounter Visit Diagnoses Not on filedocumented in this encounter Care Teams Seismograph Computer Relationship Specialty Start Date End Date Idalia Beckman DO PCP - General Internal Medicine 01/29/22 Ulises Solorio MD Assistant Child Care Teacher Cardiovascular Disease 09/12/20 Jada Galeano NP Cardiology 08/14/23 documented as of this encounter
--- OUTSIDE RECORDS SUMMARY | 2024-05-20 10:40 | XMS_ITS ---
Author Name Mr. 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, bilateral legs Active 2023-04-22 N/A Type 2 diabetes mellitus wit h other specified complicationType 2 diabetes mellitus with hyperlipidemia Active 2023-04-22 N/A History of OR (myocardial in farction)History of coronary artery stent placement Active 2023-04-22 N/A Moderate dementia without behavioral disturbance Activ e 2023-04-22 N/A 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 23-06-27 N/A Encounters Encounters Type Facility Date of Service Diagnosis/Co mplaint New patient,40-59min; chronic exacerbation, 2 stable chronic or 1 acute illness add add modifier 95 for video (do not use for phone, instead use 70448-31) [facility] 04/22/2023 Type 2 diabetes mellitus wit h other specified complicationHyperlipidemia, unspecifiedEssential (primary) hypertensionGastro-esophageal reflux disease without esophagitisUnspecified dementia, moderate, without behavioral disturbance, psychotic disturbance, mood disturbance, and anxietyAtherosclerosis of aortaAthscl tanana arteries of extrm w rest pain, bilateral [...] (do not use for phone, instead use 44821-94) [facility] 04/22/2023 New patient,40-59min; chronic exacerbation, 2 stable chronic or 1 acute illness add add modifier 95 for video (do not use for phone, instead use 48109-18) [facility] 04/22/2023 New patient,40-59min; chronic exacerbation, 2 stable chronic or 1 acute illness add add modifier 95 for video (do not use for phone, instead use 73643-46) [facility] 04/22/2023 New patient,40-59min; chronic exacerbation, 2 stable chronic or 1 acute illness add add modifier 95 for video (do not use for phone, instead use 15794-29) [facility] 04/22/2023 New patient,40-59min; chronic exacerbation, 2 stable chronic or 1 acute illness add add modifier 95 for video (do not use for phone, instead use 41183-14) [facility] [place] 04/22/2023 New patient,40-59min; chronic exacerbation, 2 stable chronic or 1 acute illness add add modifier 95 for video (do not use for phone, instead use 80859-18) [facility] 04/22/2023 New patient,40-59min; chronic exacerbation, 2 stable chronic or 1 acute illness add add modifier 95 for video (do not use for phone, instead use 10704-38) [facility] ([place]) 04/22/2023 New patient,40-59min; chronic exacerbation, 2 stable chronic or 1 acute illness add add modifier 95 for video (do not use for phone, instead use 78320-86) [facility] 04/22/2023 New patient,40-59min; chronic exacerbation, 2 stable chronic or 1 acute illness add add modifier 95 for video (do not use for phone, instead use 84389-38) [facility] 04/22/2023 RN, CN or CP time with patient by phone; use with 1111F, BP, A1c or other CPTII codes [facility] 06/26/2023 Encounter for other specifie d aftercare RN, CN or CP time with patient by phone; use with 1111F, BP, A1c or other CPTII codes [facility] 06/26/2023 Estab. patient 20-29min; 1 stable chronic or 2 minor; add add modifier 95 for video, modifier 93 for phone [facility] [place] 06/27/2023 Unspecified infectious diseasePresence of other specified devicesUnspecified dementia, moderate, without behavioral disturbance, psychotic disturbance, mood disturbance, and anxietyEncounter for other specified aftercare Estab. patient 20-29min; 1 stable chronic or 2 minor; add add modifier 95 for video, modifier 93 for phone [facility] [place] 06/27/2023 RN, CN or CP time with patient by phone; use with 1111F, BP, A1c or other CPTII codes [facility] [place] 07/02/2023 Encounter for other specifie d [...] Current Smoking Status Current every day smoker 2024-05-20 Sex Male History of Procedures Procedures Service Procedure code Service date Servicing provider Phone# New patient,40-59min; chronic exacerbation, 2 stable chronic or 1 acute illness add add modifier 95 for video (do not use for phone, instead use 46076-06) 33965 2023-04-22 No Data Available No Data Availa [...] 1111F, BP, A1c or other CPTII codes 69590 2023-06-26 No Data Available No Data Avai lable Medications prescribed in hospital were reviewed and reconciled against what they were taking prior to admission during today's visit. (1111F) 1111F 2023-06-26 No Data Available No Data Availa ble Estab. patient 20-29min; 1 stable chronic or 2 minor; add add modifier 95 for video, modifier 93 for phone 57156 2023-06-27 No Data Available No Data Availa ble Medications prescribed in hospital were reviewed and reconciled against what they were taking prior to admission during today's visit. (1111F) 1111F 2023-06-27 No Data Available No Data Availa ble RN, CN or CP time with patient by phone; use with 1111F, BP, A1c or other CPTII codes 61741 2023-07-02 No Data Available No Data Avai [...] dementia without behavioral disturbanceAtherosclerosis of aortaAtherosclerosis of tanana arteries of extremities with rest pain, bilateral legsBPH (benign prostatic hyperplasia)History of CVA (cerebrovascular accident)History of OR (myocardial infarction)History of coronary artery stent placementNicotine dependenceOpioid useChronic pain 2023-06-27 08:52:36 Patient Education to avoid future hospitalization: Call [facility] if symptoms of illness develop.Infection with trinh [...] record. (1123F)Continue to see PCP. Follow-up with [facility] as needed for any acute or disease [...] 24/7 as needed.Follows up with PCP and Inpatient Coder.BP: 136/61. Reported by lorie, taken at time [...] any acute complaint.Follows up with PCP and Inpatient Coder.Taking: Atorvastatin Calcium 80 mg Tab take 1 [...] residual effects. Follows up with PCP and Inpatient Coder. Denies any acute complaint.History of OR (myocardial infarction) about [address] Follows up with Inpatient Coder.On Statin: Atorvastatin Calcium 80 mg Tab take [...] questions or concerns. Discussed how to contact [facility] via phone or tablet. 24/7 phone number provided.
--- OUTSIDE RECORDS SUMMARY | 2024-05-20 10:40 | XMS_ITS | Encounter Summary ---
Author Organization [facility] Address [address] [place] [address] Care Team Providers Care Hog Sawyer Name Role Phone Ulises Solorio MD Unavailable Idalia Bcekman DO Primary Care Pro vider Unavailable Jada Galeano NP Unavailable [phone] Encounter Details Date Type Department Care Team Description 06/17/2023 Hospital Medical Records [address] [place] [address] Social History Tobacco Use Types Packs/Day Years [...] Name Priority Date/Time Associated Diagnosis Comments OUTSIDE LAB Routine 06/25/2023 OUTSIDE EKG Routine 06/23/2023 OUTSIDE PLAIN FILM Routine 06/23/2023 OUTSIDE ECHO Routine 06/20/2023 OUTSIDE VASCULAR STUDY Routine 2023 OUTSIDE EKG Routine [address] Routine 2023 OUTSIDE EKG Routine 06/17/[address] Routine 06/17/[address] Routine 06/17/2023 OUTSIDE PLAIN FILM Routine 06/17/2023 documented in this encounter Results * OUTSIDE LAB (06/25/2023) Provider Abstract LAB * OUTSIDE PLAIN FILM (06/23/2023) Provider Abstract RADIOLOGY * OUTSIDE EKG (06/23/2023) Provider Abstract CARDIOLOGY * OUTSIDE ECHO (06/20/2023) Provider Abstract CARDIOLOGY * OUTSIDE CT (2023) Provider Abstract RADIOLOGY * OUTSIDE VASCULAR STUDY (2023) Provider Abstract CARDIOLOGY * OUTSIDE EKG (2023) Provider Abstract CARDIOLOGY * OUTSIDE CT (06/17/2023) Provider Abstract RADIOLOGY * OUTSIDE CT (06/17/2023) Provider Abstract RADIOLOGY * OUTSIDE PLAIN FILM (06/17/2023) Provider Abstract RADIOLOGY * OUTSIDE EKG (06/17/2023) Provider Abstract CARDIOLOGY documented in this encounter Visit Diagnoses Not on filedocumented in this encounter Care Teams Hog Sawyer Relationship Specialty Start Date End Date Idalia Beckman DO PCP - General Internal Medicine 01/29/22 Ulises Solorio MD Head Baker Cardiovascular Disease 09/12/20 Jada Galeano NP Cardiology 08/14/23 documented as of this encounter
== END 2024-05-20 10:39 | disposition home or self-care (01) ==
PROVIDERS: PCP Internal Medicine; Visit Provider Internal Medicine Nephrology
DX: I12.9 Hypertensive chronic kidney disease with stage 1 through stage 4 chronic kidney disease, or unspecified chronic kidney disease (principal); N18.31 Chronic kidney disease, stage 3a
CPT/HCPCS: 99214

== ENCOUNTER → 2024-05-20 10:08 | Outpatient (BNVA) | payer OTHER, SELFPAY | PROVIDERS: PCP Internal Medicine; Visit Provider Internal Medicine Nephrology | DX: I15.0 Renovascular hypertension (principal); I12.9 Hypertensive chronic kidney disease with stage 1 through stage 4 chronic kidney disease, or unspecified chronic kidney disease; N18.31 Chronic kidney disease, stage 3a | CPT/HCPCS: 99212 ==

== ENCOUNTER 2024-10-14 09:05 | Outpatient (REF) | payer OTHER, SELFPAY ==
--- NOTE | ~2024-10-14 | MR_ITS ---
EXAMINATION: MR ABDOMEN WITHOUT THEN WITH IV CONTRAST HISTORY: Dilated Bile Duct, abd w/ MRCP COMPARISON: Correlation is made with a CT of the abdomen without contrast dated 12/11/[address] with contrast dated 01/01/2014. TECHNIQUE: Axial in and out of phase T1-weighted gradient echo, axial diffusion weighted, and axial and coronal HASTE T2 with fat saturation images were obtained through the abdomen. 3D MRCP Reconstructed and thin and thick slab images of the biliary tree were obtained. Subsequently, fat suppressed axial and coronal T1-weighted images were obtained after the intravenous administration of 6 mL Gadavist. FINDINGS: Liver: There is no loss of signal intensity in the liver on opposed phase imaging to suggest steatosis. There is no enhancing liver mass. The hepatic and portal veins are patent. There is moderate intrahepatic biliary ductal dilatation which is similar to the prior CT. Gallbladder/biliary tree: The patient is status post cholecystectomy. The common bile duct is dilated, measuring up to 11 mm in diameter. No intraluminal filling defects are identified to suggest choledocholithiasis. Spleen: The spleen is unremarkable. Pancreas: The pancreas is atrophic. There is dilatation of the pancreatic duct which is new from the prior study. No pancreatic mass is identified. Adrenals: The adrenal glands are unremarkable. Kidneys: The right kidney is atrophic and demonstrates patchy enhancement, with poor enhancement of the upper and lower poles, consistent with chronic infarcts. There is a 2.7 cm cyst at the lower pole of the left kidney. There is no hydronephrosis. Lymph nodes: There is no retroperitoneal lymphadenopathy in the upper abdomen. Fluid: There is no ascites in the upper abdomen. Visualized bowel: The visualized bowels loops are unremarkable in appearance. Visualized bones: There is a mild compression deformity of T11. There is no associated bone marrow edema. MR/MR abdomen wo/w con IMPRESSION: 1. Moderate intra and extrahepatic biliary ductal dilatation, similar in appearance to prior studies. No definite evidence of choledocholithiasis. 2. Dilatation of the pancreatic duct. No pancreatic mass is identified. Further evaluation could include ERCP. 3. 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 Electronically signed by: Alonzo Bowden MD 10/14/2024 10:22 AM EDT
--- OUTSIDE RECORDS SUMMARY | 2024-10-14 09:26 | XMS_ITS | Patient Health Record ---
Author Organization [facility] Address [address] [place] [address] Care Team Providers Care Clarifier Operator Helper Name Role Phone Jesus Emmanuel Primary Care Provider Alonzo Stafford Unavailable [phone] SHE IRAHETA Unavailable Unavailable Allergies Allergen (clinical drug ingredient) Drug/Non Drug Allergy documented on EMR Reaction Allergy Type Onset Date Status Motrin Unknown Drug Allergy Active morphine Morphine Sulfate Unknown Drug Allergy Active Reason For Referral No Information Medications Medication SIG (Take, Route, Frequency, Duration) Notes Start Date End Date Status traZODone HCl 100 MG 1 tablet at bedtime Orally Once a day Active Plavix 75 MG 1 tablet Orally Once a day Active metFORMIN HCl 500 MG 1 tablet with meals Orally Twice a day Active Aspir-81 81 MG 1 tablet Orally QOD Active Cipro 500 MG 1 tablet Orally ever y 12 hrs for 07 days 01/05/2014 Active Lisinopril 10 MG 1 tablet Orally Once a day Active oxyCODONE HCl 15 MG 1 tablet as needed O rally every 6 hrs Active Omeprazole 20MG TAKE ONE CAPSULE BY MOUTH EVERY DAY for 30 Active Tamsulosin HCl 0.4 MG 1 capsule 30 minut es after the same meal each day Orally Once a day Active Pravastatin Sodium 80 MG 1 tablet Orally Once a day Active NexIUM 40 MG 1 capsule Orally Once a day Active Problems Problem Type SNOMED Code ICD Code Onset Dates Problem Status W/U Status Risk Notes Problem Gastroesophageal reflux disease (968142620) GERD (gastroesophageal reflux disease) (530.81) Active confirmed Problem 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 [address] [place] [address] [id number] BOBBI MARQUEZ Self - patient is the insured Medical (General) History Medical History History ICD Code He had an upper endoscopy in April [address] Larson, with the finding of some mild reflux, gastritis, and H pylori--he did receive antibiotic treatment for the H. pylori. He had a colonoscopy in April 2010 wit h removal of small tubular adenomas GERD hypertension hyperlipidemia He reports previous hx of [place] 's--s/p cardiac cath and angioplasty/stent placement in 2008 CVA > 3 years ago NIDDM Denies Lung disease,renal disease Surgical History Surgery Date(Month/Year) Prostate Lap CCY--describes a preop ERCP--at [facility] 2012 Shoulder surgery
--- OUTSIDE RECORDS SUMMARY | 2024-10-14 09:26 | XMS_ITS | Clinical Summary ---
Author Organization [facility] Address [address] [place] [address] Care Team Providers Care Forensic Scientist Name Role Phone JasonIdalia delcid DO Primary Care Pro vider Medications clopidogreL (PLAVIX) 75 mg tablet TAKE 1 TABLET BY MOUTH DAILY. 28 tablet 6 05/14/2024 Active Surgical History Surgery Date Site/Laterality Comments CHOLECYSTECTOMY PROCEDURE: HISTORICAL CHOLECYSTECTOMY; COMMENT: ? removal or stent COLONOSCOPY 11/21/2016 PROCEDURE: HISTORICAL COLONOSCOPY; COMMENT: tubular adenoma OTHER SURGICAL HISTORY 04/17/2022 PROCEDURE: ME SLCTV CATHJ 3RD+ ORD SLCTV ABDL PEL/LXTR [...] RCA stenting and re stenting 2008 [place] (myocardial infarction) D X:[place] (myocardial infarction) Diabetes type 2, controlled (CMS/HCC V24, CMS/HCC V28) DX:Diabetes type 2, controll ed ([facility]) Anemia 04/06/2014 DX:Anemia Peripheral neuropathy 04/06/2014 DX:Periphe ral neuropathy Tubular adenoma of colon 04/06/2014 DX:Tubu lar adenoma of colon; COMMENT: 2010 GERD (gastroesophageal reflux disease) 5 DX:GERD (gastroesophageal reflux disease) Low back pain 04/06/2014 DX:Low back pain Cholelithiases 04/06/2014 DX:Cholelithiase s Type 2 diabetes mellitus wit h neurological manifestations, controlled ([facility] [place], [facility] V28) DX:Type 2 diabetes mellitus with neurological manifestations, controlled ([facility]) Tobacco use DX:Tobacco use Cerebrovascular accident (CV A) within last 3 months DX:Cerebrovascular accident (CVA) within last 3 months Choledocholithiasis 04/06/2014 DX:Choledoch olithiasis; COMMENT: 12/31/13 DM (diabetes mellitus), type 2 with peripheral vascular complications ([facility] V24, [facility] [place] V28) 02/01/2021 DX:DM (diabetes mellitus), type 2 with peripheral vascular complications ([facility]) Urinary retention DX:Urinary ret ention Aspiration pneumonia ([facility] V24, [facility] [place] V28) DX:Aspiration pneumonia ([facility] ) LEE (acute kidney injury) ([facility] [place] V24) DX:LEE (acute kidney injury) ([facility]) Type 2 diabetes mellitus wit hout complication, unspecified whether fdc insulin use ([facility] [place] V24, [facility] [place] V28) DX:Type 2 diabetes mellitus without complication, unspecified whether fdc insulin use ([facility]) Chronic pain syndrome DX:Chronic pain syndrome Dementia ([facility] [place] V24, [facility] [place] V28) DX:Dementia ([facility]) Social History Tobacco Use Types [...] (2 of 3) 02/20/2013 12/26/2012 RSV Immunization Adult Patients (1 - 1-dose 75+ series) 06/19/2015 Cholesterol Screening (Lipid Panel) 03/10/2022 Depression Screening 03/10/2022 Falls Risk Assessment 03/10/2022 Social Influencers of Health Screening 03/10/2022 Hypertension/CHF/CAD Annual BMP Blood Test 03/11/2022 Diabetes: Annual Urine Albumin-Creatinine Ratio (uACR) 03/15/2022 Diabetes: Blood Sugar Control Test (HGBA1C) 03/15/2022 COVID-19 Vaccine ( - season) 2023 Influenza Vaccine (#1) 2024 0, 01/23/2019, 12/10/2017, Additional history exists Pneumococcal Vaccine: [...] age to complete this topic Meningococcal B Vaccine Aged Out No l onger eligible based on patient's age to complete this topic RSV Immunization Patients Under 20 months Aged Out No longer eligible based on patient's age to complete this topic Varicella Vaccines Aged Out No longer eligible based on patient's age to complete this topic Care Teams Forensic Scientist Relationship Specialty Start Date End Date Idalia Richey DO PCP - General Internal Medicine 02/03/14
--- OUTSIDE RECORDS SUMMARY | 2024-10-14 09:26 | XMS_ITS ---
Author Name Mr. Deny Urbano Address [address] [place] [address] Phone [phone] [facility] Care Team Providers Care Automobile Carpets Molder Name Role Phone Arsenio Cline Unavailable [phone] Unavailable Unavailable Unavailable [facility] Unavailable Reason for Referral Not Available Allergies, [...] Fumarate 25 mg Tab No Data Available 08-14-22 Tamsulosin 0.4 mg Cap 1 capsule orally [...] List Problem Status Onset Date Resolved Date Synopsis Hypertension Active 2023-04-22 N/A Follows up w [facility] PCP and [employer].BP: 136/61. Reported by lorie, taken at time of video encounter. Reports it has been well controlled. Taking:Losartan Potassium 25 mg Tab 1 tab PO QDMetoprolol Succinate ER 25 mg Tab ER 24hr 1 tablet QDDenies any acute complaint.Continue treatment as prescribed, follow up as instructed.Monitor BP regularly at home.Follow low Sodium diet. Contact 24/7 as needed. Nicotine dependence Active 2023-04-22 N/A Daily smoke, not willing to quit. Advised of negative effects of smoking and health. Contact 24/7 for assistance with smoking cessation. GERD (gastroesophageal reflux disease) Active 2023-04-22 N/A Follows up with PCP.Taking: Omeprazole 20 mg Cap delayed rel 1 dailyDenies any acute complaint.Continue treatment as prescribed, follow up as instructed.Elevate head of bed. Avoid triggers. Contact 24/7 as needed. History of CVA (cerebrovascular accident) Active 2023-04-22 N/A Histo ry of CVA (cerebrovascular accident) in 2018. Completed PT and no residual effects. Follows up with PCP and [employer]. Denies any acute complaint. BPH (benign prostatic hyperplasia) Active 2023-04-22 N/A Follows up with Urologist.Taking: Finasteride 5 mg Tab 1 tablet orally dailyTamsulosin 0.4 mg Cap 1 capsule orally one time dailyDoing well on current treatment.Denies any acute complaint.Continue treatment as prescribed, follow up as instructed.Contact CB 24/7 as needed. Atherosclerosis of aorta Active 2023-04-22 N/A Follows up with PCP and [employer].Taking: Atorvastatin Calcium 80 mg Tab take 1 tablet orally once dailyAdvised to follow low fat, low carb, heart healthy diet.Continue treatment as prescribed. Follow up with PCP as scheduled.Contact CB 24/7 as needed. Opioid useChronic pain Active 2023-04-22 N/A Fo llows up with PCP every 2-3 months as [...] up as scheduled.Contact CB 24/7 as needed. 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 Taking: Clopidogrel Bisulfate 75 mg Tab 1 tablet orally dailyAtorvastatin Calcium 80 mg Tab take 1 tablet orally once dailyDoing well on current treatment.Denies any acute complaint.Continue treatment as prescribed, follow up as instructed.Contact CB 24/7 as needed. Type 2 diabetes mellitus with other specified complicationType 2 diabetes mellitus with hyperlipidemia Active 2023-04-22 N/A Follows up with PCP.Glucose at home: 90 mg/dl. Was taking Metformin, but discontinued by PCP due to being stable and monitoring for now.No recent A1C found on outside records. Taking:DM: Diet controlled. HL: Atorvastatin Calcium 80 mg Tab take 1 tablet orally once dailyAdvised to follow low fat, low carb, heart healthy diet.Continue treatment as prescribed. Follow up with PCP as scheduled.Contact CB 22/10 as needed. History of [place] (myocardial infarction)History of coronary artery stent placement Active 2023-04-22 N/A History of [place] (m yocardial infarction) about 10 [address] ago[address]ent in place. Follows up with [employer].On Statin: Atorvastatin Calcium 80 mg Tab take 1 tablet orally once dailyTaking: Clopidogrel Bisulfate 75 mg Tab 1 tablet orally dailyDoing well on current treatment.Denies any acute complaint.Continue treatment as prescribed, follow up as instructed.Contact CB 24 as needed. Moderate dementia without behavioral disturbance Active 2023-04-22 N/A Follows u p with Neurologist.Grandson reports decline in memory.Neurologist ordered some tests, pending to complete.Not taking any medications.Lives at home with his . Grandson is primary caregiver. Denies any acute complaint. 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 CN to call family and facilitate communication w PCP and hospital who are the ones referring the HH nurse. Encounters Encounters Type Facility Date of Service Diagnosis/Co mplaint New patient,40-59min; chronic exacerbation, 2 stable chronic or 1 acute illness add add modifier 95 for video (do not use for phone, instead use 44682-43) [facility]23 Type 2 diabetes mellitus wit h other specified complicationHyperlipidemia, unspecifiedEssential (primary) hypertensionGastro-esophageal reflux disease without esophagitisUnspecified dementia, moderate, without behavioral disturbance, psychotic disturbance, mood disturbance, and anxietyAtherosclerosis of aortaAthscl stillaguamish arteries of extrm w rest pain, bilateral [...] (do not use for phone, instead use 71156-10) [facility] 04[place] New patient,40-59min; chronic exacerbation, 2 stable chronic or 1 acute illness add add modifier 95 for video (do not use for phone, instead use 37251-27) [facility], ([place] 04[place]/2023 New patient,40-59min; chronic exacerbation, 2 stable chronic or 1 acute illness add add modifier 95 for video (do not use for phone, instead use 51874-32) [facility] 04[place] New patient,40-59min; chronic exacerbation, 2 stable chronic or 1 acute illness add add modifier 95 for video (do not use for phone, instead use 58314-04) [facility] 04[place] New patient,40-59min; chronic exacerbation, 2 stable chronic or 1 acute illness add add modifier 95 for video (do not use for phone, instead use 98953-53) [facility] New patient,40-59min; chronic exacerbation, 2 stable chronic or 1 acute illness add add modifier 95 for video (do not use for phone, instead use 61437-04) [facility] 04[place]/20[place] New patient,40-59min; chronic exacerbation, 2 stable chronic or 1 acute illness add add modifier 95 for video (do not use for phone, instead use 36301-20) [facility]/20[place] New patient,40-59min; chronic exacerbation, 2 stable chronic or 1 acute illness add add modifier 95 for video (do not use for phone, instead use 09742-19) [facility] 04[place] New patient,40-59min; chronic exacerbation, 2 stable chronic or 1 acute illness add add modifier 95 for video (do not use for phone, instead use 83218-29) [facility] ([place] 04/[place]/2023 RN, CN or CP time with patient by phone; use with 1111F, BP, A1c or other CPTII codes [facility] 06/26/2023 Encounter for other specifie d aftercare RN, CN or CP time with patient by phone; use with 1111F, BP, A1c or other CPTII codes [facility] 06/26/2023 Estab. patient 20-29min; 1 stable chronic or 2 minor; add add modifier 95 for video, modifier 93 for phone [facility] ([place] 06/27/2023 Unspecified infectious diseasePresence of other specified devicesUnspecified dementia, moderate, without behavioral disturbance, psychotic disturbance, mood disturbance, and anxietyEncounter for other specified aftercare Estab. patient 20-29min; 1 stable chronic or 2 minor; add add modifier 95 for video, modifier 93 for phone [facility] 06/27/2023 RN, CN or CP time with patient by phone; use with 1111F, BP, A1c or other CPTII codes [facility] 07/02/2023 Encounter for other specifie d aftercare Vital Signs Date of Collection Vitals 2023-04-22 09:36:09 Height - 172.72 cmWe ight - 64.86 kgBody Mass Index (BMI) - 21.74 kg/m2BP Diastolic - 61.0 mm[Hg]BP Systolic - 136.0 mm[Hg]Heart Rate - 59.0 /minPain Scale - 0.0 {score} Social History Social History Social History Observation Description Effec tive Time Current Smoking Status Current every day smoker 2024-10-14 Sex Male History of Procedures Procedures Service Procedure code Service date Servicing provider Phone# New patient,40-59min; chronic exacerbation, 2 stable chronic or 1 acute illness add add modifier 95 for video (do not use for phone, instead use 53079-47) 09202 2023-04-22 No Data Available No Data Availa [...] Available Advance care planning discussed and documented advance care plan or surrogate decision-maker was [...] 1111F, BP, A1c or other CPTII codes 17101 2023-06-26 No Data Available No Data Avai lable Medications prescribed in hospital were reviewed and reconciled against what they were taking prior to admission during today's visit. (1111F) 1111F 2023-06-26 No Data Available No Data Availa ble Estab. patient 20-29min; 1 stable chronic or 2 minor; add add modifier 95 for video, modifier 93 for phone 25957 2023-06-27 No Data Available No Data Availa ble Medications prescribed in hospital were reviewed and reconciled against what they were taking prior to admission during today's visit. (1111F) 1111F 2023-06-27 No Data Available No Data Availa ble RN, CN or CP time with patient by phone; use with 1111F, BP, A1c or other CPTII codes 49449 2023-07-02 No Data Available No Data Avai [...] dementia without behavioral disturbanceAtherosclerosis of aortaAtherosclerosis of stillaguamish arteries of extremities with rest pain, bilateral legsBPH (benign prostatic hyperplasia)History of CVA (cerebrovascular accident)History of [place] (myocardial infarction)History of coronary artery stent placementNicotine dependenceOpioid useChronic pain 2023-06-27 08:52:36 Patient Education to avoid future hospitalization: Call [facility] if symptoms of illness develop.Infection with trinh [...] modifier 95Advance care planning discussed and documented advance care plan or surrogate decision-maker was documented in the medical record. (1123F)Continue to see PCP. Follow-up with [facility] as needed for any acute or [...] 24/7 as needed.Follows up with PCP and [employer].BP: 136/61. Reported by lorie, taken at time [...] Contact CB 24/7 as needed.Follows up with Neurologist.Grandson reports decline in memory.Neurologist ordered some tests, pending to complete.Not taking any medications.Lives at home with his . Grandson is primary caregiver. Denies any acute complaint.Follows up with PCP and [employer].Taking: Atorvastatin Calcium 80 mg Tab take 1 [...] residual effects. Follows up with PCP and [employer]. Denies any acute complaint.History of [place] (myocardial infarction) about [address] ago[address] in [address] Follows up with [employer].On Statin: Atorvastatin Calcium 80 mg Tab take 1 tablet orally once dailyTaking: Clopidogrel Bisulfate 75 mg Tab 1 tablet orally dailyDoing well on current treatment.Denies any acute complaint.Continue treatment as prescribed, follow up as instructed.Contact CB 24/7 as needed.Daily smoke, not willing to quit. Advised of negative effects of smoking and health. Contact 24/7 for assistance with smoking cessation.Follows up [...] medications as prescribed only.Follow up as scheduled.Contact 22/10 as needed. 2023-06-27 08:52:36 Discharge medication s reconciled with current medication listTelevideo 20-29min; 1 stable chronic or 2 minor; add modifier 95PCP visit is planned for:Awaiting hospital recordsPer CG p t clearly needs nursing at home but details are unknown to us. CN to call family and facilitate communication w PCP and hospital who are the ones referring the HH nurse.Follows up with Neurologist.Grandson reports decline in memory.Neurologist ordered some tests, pending to complete.Not taking any medications.Lives at home with his . Grandson is primary caregiver. Denies any acute complaint. 2023-07-02 14:06:30 07/05/23 Goals Date Goal 2023-04-22 Remember to keep all appointments with your PCP and specialists. Call CB / if you have questions or concerns. Discussed how to contact [facility] via phone or tablet. 22/10 phone number provided.
--- OUTSIDE RECORDS SUMMARY | 2024-10-14 09:26 | XMS_ITS | Patient Health Record ---
Author Organization [facility] Address [address] [place] [address] Care Team Providers Care Plug Paster Name Role Phone Idalia Beckman Primary Care Provid er Unavailable Lee Ann Gaffney Unavailable [phone] Allergies Allergen (clinical drug ingredient) Drug/Non Drug Allergy documented on EMR Reaction Allergy Type Onset Date Status morphine Morphine redness Drug Allergy Active Results Component Value Reference Range Notes HEMOGLOBIN A1C (GLYCOHEMOGLO BIN) Reviewed date:07/15/2024 01:15:32 PM Interpretation: Performing Lab: Notes/Report: HEMOGLOBIN A1C % (HH) 4.5 Reason For Referral No Information Medications Medication SIG (Take, Route, Frequency, Duration) Notes Start Date End Date Status Tamsulosin HCl 1 in A.M. Activ e Multivitamin 1 dauky Active Gabapentin 1 @ bedtime Active Losartan Potassium 1 daily A ctive Vitamin B12 1 daily Active Ciclopirox Olamine 0.77 % 1 application Externally Twice a day; Duration: 30 days 08/31/2024 Active Metoprolol & Diet Manage Prod 1 daily Active Omeprazole 1 daily Active Naftifine HCl 2 % 1 application Externally Apply a thin layer to skin, even between toes, twice a day; Duration: 30 days Active Clopidogrel & Aspirin 1 daily Active Finasteride 1 daily Active Plavix Active Ammonium Lactate 12 % 1 application Externally to affected areas of dry skin to feet except for between the toes Twice a day; Duration: 30 days Active Atorvastatin Calcium Active Social History Tobacco Use: Social History [...] W/U Status Risk Notes Problem Atherosclerosis of burns paiute artery of both lower extremities, with unspecified presence of clinical manifestation (I70.203) Active confirmed Q7(A), Q8(2B), Q9(1B,2C) Vital Signs Height 5 ft 9inch in 07/15/2024 Weight 128 lbs 07/15/2024 BMI 18.9 kg/m2 07/15/2024 Procedures Procedure Date Ordered Date Performed Result Body Sit e 54808-KGAPMXL NAIL, 6 OR MORE 03/02/2024 N/A 39758-OYWR SKIN LESIONS, 2 TO 4 03/02/2024 N/A 42882-DNBEVUN NAIL, 6 OR MORE 07/15/2024 N/A 46089-SKOX SKIN LESIONS, 2 TO 4 07/15/2024 N/A Encounters Encounter Location Date Provider Diagnosis [address] [address] 03/02/2024 Lee Ann Gaffney Atherosclerosis of burns paiute artery of both lower extremities, with unspecified presence of clinical manifestation I70.203 ; Tinea unguium B35.1 ; Pain in right toe(s) M79.674 ; Pain in left toe(s) M79.675 and Xerosis of skin L85.[address] [address] 07/15/2024 Lee Ann Gaffney Tinea pedis of both feet B35.3 ; Atherosclerosis of burns paiute artery of both lower extremities, with unspecified presence of clinical manifestation I70.203 ; Tinea unguium B35.1 ; Pain in right toe(s) M79.674 and Pain in left toe(s) M79.[address] [address] 01/16/2024 Lee Ann Gaffney [facility] [place] [id number] [place] [address] 02/19/2024 Lee Ann Gaffney [facility] [address] [address] 03/10/2024 Lee Ann Gulshan Xerosis of skin L85.[address] [address] 07/20/2024 Lee Ann Gaffney [facility] [address] 08/21/2024 [facility] [address] 08/28/2024 Lee Ann Gaffney Assessments Encounter Date Diagnosis (ICD Code) Assessment Notes Treatment Notes Treatment Clinical Notes Section Notes 03/02/2024 Atherosclerosis of burns paiute artery of both lower extremities, with unspecified presence of clinical manifestation (ICD-10 - I70.203) Q7(A), Q8(2B), Q9(1B,2C) 03/10/2024 Xerosis of skin (ICD-10 - L85.3) 07/15/2024 Tinea pedis of both feet (ICD-10 - B35.3) 07/15/2024 Atherosclerosis of burns paiute artery of both lower extremities, with unspecified presence of clinical manifestation (ICD-10 - I70.203) Q7(A), Q8(2B), Q9(1B,2C) 03/02/2024 Tinea unguium (ICD-10 - B35.1) 03/02/2024 Pain in right toe(s) (ICD-10 - M79.674) 07/15/2024 Tinea unguium (ICD-10 - B35.1) 03/02/2024 Pain in left toe(s) (ICD-10 - M79.675) 07/15/2024 Pain in right toe(s) (ICD-10 - M79.674) 03/02/2024 Xerosis of skin (ICD-10 - L85.3) 07/15/2024 Pain in left toe(s) (ICD-10 - M79.675) Plan Of Treatment Pending Test Test Name Order Date 03836-TTRSZAR NAIL, 6 OR MORE 03/02/2024 63384-TDNIPAR NAIL, 6 OR MORE 07/15/2024 72254-HFYA SKIN LESIONS, 2 TO 4 07/16/19 25 59896-SNTC SKIN LESIONS, 2 TO 4 03/02/20 24 Next Appt Details Provider Name:Lee Ann thorpe, 10/15/2024 02:45:00 PM, [address] [place], [address], Insurance Providers Payer Name Payer Address Payer Phone Subscriber Number Group Number Insured Name Patient Relationship to Insured Coverage Start Date Coverage End Date [facility] Adv [address] [place] [id number] Markus Bailey Self - patient is the insured Medical (General) History Medical History History ICD Code Arthritis Back,Hip,and Knee pain Heart disease High Blood Pressure Poor circulation Stroke Kidney disease Chicken pox Joint implants/screws
== END 2024-10-14 09:06 | disposition home or self-care (01) ==
LOC: HO.MRI 09:05
PROVIDERS: PCP Internal Medicine; Visit Provider Internal Medicine
DX: K83.8 Other specified diseases of biliary tract (principal)
CPT/HCPCS: 74183; A9585

== ENCOUNTER → 2024-10-14 09:22 | Outpatient (BNV) | payer OTHER, SELFPAY | PROVIDERS: PCP Internal Medicine; Visit Provider Radiology Diagnostic Radiology | DX: N28.1 Cyst of kidney, acquired (principal) | CPT/HCPCS: 74183 ==

== ENCOUNTER 2024-11-25 10:16 | Outpatient (AMB) | payer OTHER, SELFPAY ==
--- OUTSIDE RECORDS SUMMARY | 2024-10-15 10:45 | XMS_ITS ---
Author Organization [facility] Address [address] [place] [address] Care Team Providers Care Scalper Operator Name Role Phone Idalia Beckman Primary Care Provid er Unavailable Lee Ann Gaffney [phone] Encounters Encounter Location Date Provider Diagnosis [address] [address] 10/15/2024 Lee Ann Gaffney Plan Of Treatment Next Appt Details Provider Name:Lee Ann thorpe, 02/22/2025 11:15:00 AM, [address] [place] [address], [phone], Progress Notes * Shannen BAILEYOB: [birth year] (84 yo M)Acc No.[id number]:10/15/2024 Progress Note Patient: Akash GAMARAMONE Markus Provider: Cesario Gaffney DPM :1940 A ge:84 Y S ex:Male Date:10/15/2024 Address:[address] [place] [address] [address] [id number] Pcp:Idalia johnson Subjective: * Chief Complaints: * * Medical History: Objective: * Vitals: Assessment: Plan: * Treatment: * Images: * The named appointment provid er may or may not be the originator of this progress note, and it is not deemed complete until electronically signed by the appointment provider. Sign off status: Pending * Provider: Cesario Gaffney DPM Date: 0 10/15/2024 Generated for Miles Foss/Mane on: 0 11/25/2024 11:05 AM EDT
--- NOTE | 2024-11-25 10:28 | HO.NEPHOV ---
Vital Signs 11/25/24 10:33 Height 5 ft 9 in Weight 128 lb 2 oz BMI 18.9 BP 124/64 Blood Pressure Location Rt brachial Position Sitting Pulse 63 Pulse Source Pulse Oximeter Pulse Oximetry (%) 98 Oxygen Delivery Method Room Air Intake Visit Reasons: CKD-Conf Automatic Mold Sander Required: Yes Automatic Mold Sander Language: Product Specialist Services: Automatic Mold Sander Offered & Declined ([facility] Automatic Mold Sander services refused. ) Accompanied by: Son Allergies morphine (MORPHINE) Allergy (Intermediate, Verified 11/25/24 10:32) RASH, ITCHING NSAIDS (Non-Steroidal Anti-Inflamma (NSAIDS (NON-STEROIDAL ANTI-INFLAMMA) Allergy (Unknown, Verified 11/25/24 10:32) UNKNOWN pregabalin (From Lyrica) Allergy (Verified 11/25/24 10:32) Unknown ibuprofen (From MOTRIN) Adverse Reaction (Unknown, Verified 11/25/24 10:32) NAUSEA HPI Comments Details: Mr. Bailey was for CKD and hypertension. He is a known diabetic with history of myocardial infarction, CVA and peripheral arterial disease. He has longstanding peripheral neuropathy. He does not have any active lower extremity ulcers and gangrene. He continues to be a smoker. His serum creatinine has been stable. He denies any chest pain, shortness of, proximal nocturnal dyspnea, orthopnea, hematuria, recurrent urinary infection, nephrolithiasis, joint pain, sinusitis, new skin rashes, photosensitivity, epistaxis or excessive nonsteroidal anti-inflammatory medication intake. Imaging done in the past had shown right renal artery showing very little flow with an atrophic appearing right kidney. 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 He had failed revascularization for his peripheral arterial disease. COUNTS INCLUDE 234 BEDS AT THE [facility] Medical History (Updated 11/25/24 @ 10:45 by Ayad Byrne MD) Unintentional weight loss Secondary hypercoagulable state CAD (coronary artery disease) Renal artery injury Atrial fibrillation Renal infarct Peripheral arterial disease Facial droop CVA (cerebral vascular accident) Pulmonary emphysema Lung nodule, multiple Tobacco use Low back pain GERD (gastroesophageal reflux disease) Tubular adenoma of colon Peripheral neuropathy Anemia Old [place] (myocardial infarction) Type 2 diabetes mellitus with neurological manifestations, controlled Essential (primary) hypertension Hyperlipidemia BPH (benign prostatic hyperplasia) Surgical History H/O colonoscopy History of cholecystectomy History of revascularization procedure of lower extremity Social History Alcohol intake: never Patient Tobacco Use Status: Current everyday Tobacco user Review of Systems Const All systems reviewed & are unremarkable except as noted in HPI and below Physical Exam Const General: comfortable and no acute distress Orientation/consciousness: patient oriented x3 HEENT Head: Yes normocephalic Mouth: Normal oral and palatal mucosa present Eyes EOM: EOMs intact bilaterally Neck Neck: Yes supple Resp Auscultation: clear to auscultation bilaterally Cardio Jugular venous distension: no JVD Rate: regular rate GI Palpation (GI): Soft to palpation Auscultation: normal bowel sounds General: Yes no CVA tenderness Back/Spine/Pelvis Back: no CVA tenderness Skin General skin exam: no rashes or lesions noted Neuro General: patient oriented x3 and moves all extremities Extrem General: Yes no pedal edema Results Reviewed Nephrology Results: Hgb, (14.0-18.0) 13.5 g/dl L 04/30/24 WBC, (4.8-10.8) 8.3 X10*3/uL 04/30/24 Plt Count, (160-400) 222 X10*3/uL 04/30/24 Sodium, (135-145) 142 mmol/L 04/30/24 Potassium, (3.3-5.1) 3.4 mmol/L 04/30/24 Chloride, (96-108) 110 mmol/L H 04/30/24 Carbon Dioxide, (22-29) 26 mmol/L 04/30/24 BUN, (9-16) 16 mg/dL 04/30/24 Creatinine, (0.5-1.4) 0.82 mg/dL 04/30/24 Calcium, (8.4-10.2) 9.0 mg/dL 04/30/24 Phosphorus, (2.7-4.5) 3.1 mg/dL 04/30/24 PTH Intact, (8.7-77.1) 53.4 pg/mL 04/30/24 Urine Creatinine 120.02 mg/dL 05/01/24 Protein/Creatinin Ratio, (<0.2) 0.17 05/01/24 Assessment & Plan Assessment & Plan (1) CKD (chronic kidney disease) stage 3, GFR 30-59 ml/min: Code(s): N18.30 - Chronic kidney disease, stage 3 unspecified Category: Medical Qualifiers: Chronic kidney disease stage 3 subtype: stage 3a (GFR 45-59) Qualified Code(s): N18.31 - Chronic kidney disease, stage 3a (2) Hypertension: Code(s): I10 - Essential (primary) hypertension Category: Medical Qualifiers: Hypertension type: renovascular hypertension Qualified Code(s): I15.0 - Renovascular hypertension (3) Atrophy of right kidney: Code(s): N26.1 - Atrophy of kidney (terminal) Category: Medical Plan Mr. 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 His last serum creatinine had been close to baseline. His blood pressure is at goal. He is tolerating ARB. He is on statins and Plavix as well as Xarelto . He takes Flomax for prostatic symptoms. He will be a great candidate for SGLT2 inhibitor. He avoids nonsteroidal anti-inflammatories and maintain good hydration. Follow-up lab work ordered Orders: Orders Creatinine 6 Months I15.0 - Renovascular hypertension, N18.31 - Chronic kidney disease, stage 3a Electrolytes 6 Months I15.0 - Renovascular hypertension, N18.31 - Chronic kidney disease, stage 3a Electrolytes Today I15.0 - Renovascular hypertension, N18.31 - Chronic kidney disease, stage 3a, N26.1 - Atrophy of kidney (terminal) Creatinine Today I15.0 - Renovascular hypertension, N18.31 - Chronic kidney disease, stage 3a, N26.1 - Atrophy of kidney (terminal) Blood Urea Nitrogen 6 Months I15.0 - Renovascular hypertension, N18.31 - Chronic kidney disease, stage 3a Blood Urea Nitrogen Today I15.0 - Renovascular hypertension, N18.31 - Chronic kidney disease, stage 3a, N26.1 - Atrophy of kidney (terminal) Coding Level of Care Code Est Pt Level 4 (53840) Diagnoses Stage 3a chronic kidney disease N18.31 Chronic kidney disease stage 3 subtype: stage 3a (GFR 45-59) Renovascular hypertension I15.0 Hypertension type: renovascular hypertension Atrophy of right kidney N26.1
[2024-11-25 10:33] VITALS: BP 124/64; PULSE 63; O2SAT 98; BMI 18.9
--- OUTSIDE RECORDS SUMMARY | 2024-11-25 11:05 | XMS_ITS ---
Author Name Mr. Deny Urbano Address [address] [place] [address] Phone [phone] [facility] Care Team Providers Care Atomic Fuel Assembler Name Role Phone Arsenio Cline Unavailable [phone] Unavailable Unavailable Unavailable [facility] Unavailable Reason for Referral Not Available Allergies, [...] Hypertension Active 2023-04-22 N/A Follows up w [facility] PCP and Furniture Removalist'S Assistant.BP: 136/61. Reported by lorie, taken at time [...] residual effects. Follows up with PCP and Furniture Removalist'S Assistant. Denies any acute complaint. BPH (benign prostatic hyperplasia) Active 2023-04-22 N/A Follows up with Urologist.Taking: Finasteride 5 mg Tab 1 tablet orally dailyTamsulosin 0.4 mg Cap 1 capsule orally one time dailyDoing well on current treatment.Denies any acute complaint.Continue treatment as prescribed, follow up as instructed.Contact CB 24/7 as needed. Atherosclerosis of aorta Active 2023-04-22 N/A Follows up with PCP and Furniture Removalist'S Assistant.Taking: Atorvastatin Calcium 80 mg Tab take 1 [...] scheduled.Contact CB 24/7 as needed. Atherosclerosis of [place] arteries of extremities with rest pain, bilateral [...] scheduled.Contact CB 22/10 as needed. History of VT (myocardial infarction)History of coronary artery stent placement Active 2023-04-22 N/A History of VT (m yocardial infarction) about [address]. Follows up with Furniture Removalist'S Assistant.On Statin: Atorvastatin Calcium 80 mg Tab take [...] (do not use for phone, instead use 50464-84) [facility]2023 Type 2 diabetes mellitus wit h other specified complicationHyperlipidemia, unspecifiedEssential (primary) hypertensionGastro-esophageal reflux disease without esophagitisUnspecified dementia, moderate, without behavioral disturbance, psychotic disturbance, mood disturbance, and anxietyAtherosclerosis of aortaAthscl akhiok arteries of extrm w rest pain, bilateral [...] (do not use for phone, instead use 73862-63) [facility]20[place] New patient,40-59min; chronic exacerbation, 2 stable chronic or 1 acute illness add add modifier 95 for video (do not use for phone, instead use 54161-80) [facility] ([place]) 04/22/2023 New patient,40-59min; chronic exacerbation, 2 stable chronic or 1 acute illness add add modifier 95 for video (do not use for phone, instead use 73065-13) [facility]2023 New patient,40-59min; chronic exacerbation, 2 stable chronic or 1 acute illness add add modifier 95 for video (do not use for phone, instead use 77632-12) [facility] 04/22[place]2023 New patient,40-59min; chronic exacerbation, 2 stable chronic or 1 acute illness add add modifier 95 for video (do not use for phone, instead use 27891-50) [facility]/22[place]2023 New patient,40-59min; chronic exacerbation, 2 stable chronic or 1 acute illness add add modifier 95 for video (do not use for phone, instead use 39554-99) [facility] 04/22/2023 New patient,40-59min; chronic exacerbation, 2 stable chronic or 1 acute illness add add modifier 95 for video (do not use for phone, instead use 71488-71) [facility] 04/22/2023 New patient,40-59min; chronic exacerbation, 2 stable chronic or 1 acute illness add add modifier 95 for video (do not use for phone, instead use 14640-75) [facility] 04/22/2023 New patient,40-59min; chronic exacerbation, 2 stable chronic or 1 acute illness add add modifier 95 for video (do not use for phone, instead use 82041-77) [facility] 04/22/2023 RN, CN or CP time with patient by phone; use with 1111F, BP, A1c or other CPTII codes [facility] 06/26/2023 Encounter for other specifie d aftercare RN, CN or CP time with patient by phone; use with 1111F, BP, A1c or other CPTII codes [facility] 06/26/2023 Estab. patient 20-29min; 1 stable chronic or 2 minor; add add modifier 95 for video, modifier 93 for phone [facility] ([place] 06/27/2023 Unspecified infectious diseasePresence of other specified devicesUnspecified dementia, moderate, without behavioral disturbance, psychotic disturbance, mood disturbance, and anxietyEncounter for other specified aftercare Estab. patient 20-29min; 1 stable chronic or 2 minor; add add modifier 95 for video, modifier 93 for phone [facility] 06/27/2023 RN, CN or CP time with patient by phone; use with 1111F, BP, A1c or other CPTII codes [facility] 07/02/2023 Encounter for other specifie d aftercare Vital Signs Date of Collection Vitals 2023-04-22 09:36:09 Height - 172.72 cmWe ight - 64.86 kgBody Mass Index (BMI) - 21.74 kg/m2BP Diastolic - 61.0 mm[Hg]BP Systolic - 136.0 mm[Hg]Heart Rate - 59.0 /minPain Scale - 0.0 {score} Social History Social History Social History Observation Description Effec tive Time Current Smoking Status Current every day smoker 2024-11-25 Sex Male History of Procedures Procedures Service Procedure code Service date Servicing provider Phone# New patient,40-59min; chronic exacerbation, 2 stable chronic or 1 acute illness add add modifier 95 for video (do not use for phone, instead use 10620-59) 35853 2023-04-22 No Data Available No Data Availa [...] 1111F, BP, A1c or other CPTII codes 74774 2023-06-26 No Data Available No Data Avai lable Medications prescribed in hospital were reviewed and reconciled against what they were taking prior to admission during today's visit. (1111F) 1111F 2023-06-26 No Data Available No Data Availa ble Estab. patient 20-29min; 1 stable chronic or 2 minor; add add modifier 95 for video, modifier 93 for phone 58820 2023-06-27 No Data Available No Data Availa ble Medications prescribed in hospital were reviewed and reconciled against what they were taking prior to admission during today's visit. (1111F) 1111F 2023-06-27 No Data Available No Data Availa ble RN, CN or CP time with patient by phone; use with 1111F, BP, A1c or other CPTII codes 40871 2023-07-02 No Data Available No Data Avai [...] dementia without behavioral disturbanceAtherosclerosis of aortaAtherosclerosis of akhiok arteries of extremities with rest pain, bilateral legsBPH (benign prostatic hyperplasia)History of CVA (cerebrovascular accident)History of VT (myocardial infarction)History of coronary artery stent placementNicotine dependenceOpioid useChronic pain 2023-06-27 08:52:36 Patient Education to avoid future hospitalization: Call [facility] if symptoms of illness develop.Infection with [...] record. (1123F)Continue to see PCP. Follow-up with [facility] as needed for any acute or [...] 24/7 as needed.Follows up with PCP and Furniture Removalist'S Assistant.BP: 136/61. Reported by lorie, taken at time [...] any acute complaint.Follows up with PCP and Furniture Removalist'S Assistant.Taking: Atorvastatin Calcium 80 mg Tab take 1 [...] residual effects. Follows up with PCP and Furniture Removalist'S Assistant. Denies any acute complaint.History of VT (myocardial infarction) about [address] in [address]. Follows up with Furniture Removalist'S Assistant.On Statin: Atorvastatin Calcium 80 mg Tab take [...] questions or concerns. Discussed how to contact [facility] via phone or tablet. 22/10 phone number provided.
--- OUTSIDE RECORDS SUMMARY | 2024-11-25 11:05 | XMS_ITS | Clinical Summary ---
Author Organization [facility] Address [address] [place], [place] [address] Phone Care Team Providers Care Audit Intern Name Role Phone Idalia Richey DO Primary Car e Provider Social History Tobacco Use Types Packs/Day Years Used Date Smoking Tobacco: Never Assessed Education Answer Date Recorded Are you interested in more education? Not on toña e 07/10/2023 Are you concerned about learning? Not on file 07/10/2023 No 07/10/2023 No 07/10/2023 Digital Access Answer Date Recorded No 07/10/2023 No 07/10/2023 Reliable internet access at home? Not on file 07/10/2023 Device with a working camera? Not on file Sex and Gender Information Value Date Recorded Sex Assigned at Not on file Legal Sex Male 2:24 PM EDT Gender Identity Not on file Sexual Orientation Not on file Plan of Treatment Not on file Medical Devices Not on file Insurance [address] [place] [id number] [facility] MEDICARE REPLACEMENT MEDICARE REPLACEMENT MEDICARE REPLACEMENT MEDICARE REPLACEMENT MEDICARE REPLACEMENT MEDICARE REPLACEMENT MEDICARE [place] [address] [place] [address] MEDICARE REPLACEMENT Care Teams Audit Intern Relationship Specialty Start Date End Date Idalia Richey DO [address] [place] [address] PCP - General Internal Medicine 10/10/17 Additional Source Comments The information contained in this document represents components of the legal health record. It is not the complete legal health record.[facility]
--- OUTSIDE RECORDS SUMMARY | 2024-11-25 11:05 | XMS_ITS | Patient Health Record ---
Author Organization [facility] Address [address] [place] [address] Care Team Providers Care Post Doc Fellowship Name Role Phone Idalia Beckman Primary Care Provid er Unavailable Lee Ann Gaffney Unavailable [phone] Allergies Allergen (clinical drug ingredient) Drug/Non Drug [...] Duration) Notes Start Date End Date Status Atorvastatin Calcium Active Plavix Active Ammonium Lactate 12 % 1 application Externally to affected areas of dry skin to feet except for between the toes Twice a day; Duration: 30 days Active Omeprazole 1 daily Active Naftifine HCl 2 % 1 application Externally Apply a thin layer to skin, even between toes, twice a day; Duration: 30 days Active Metoprolol & Diet Manage Prod 1 daily Active Ciclopirox Olamine 0.77 % 1 application Externally Twice a day; Duration: 30 days 08/31/2024 Active Vitamin B12 1 daily Active Multivitamin 1 dauky Active Tamsulosin HCl 1 in A.M. Activ e Losartan Potassium 1 daily A ctive Gabapentin 1 @ bedtime Active Finasteride 1 daily Active Clopidogrel & Aspirin 1 daily Active Immunizations Vaccine Route Administration Date Status Comme nts Influenza Unknown 12/03/2023 Administered Social History Tobacco Use: Social History Observation [...] Problem Status W/U Status Risk Notes Problem Bilateral atherosclerosis of arteries of lower limbs (disorder) (39443960247554977 ) Atherosclerosis of belkofski artery of both lower extremities, with unspecified presence of clinical manifestation (I70.203) Active confirmed Q7(A), Q8(2B), Q9(1B,2 C) Vital Signs Blood pressure diastolic 65 mm Hg 10/21/2024 Height 5 ft 9inch in 10/21/2024 Blood pressure systolic 128 mm Hg 10/21/2024 Weight 128 lbs 10/21/2024 BMI 18.9 kg/m2 10/21/2024 Procedures Procedure Date Ordered Date Performed Result Body Sit e 46448-POGBWII NAIL, 6 OR MORE 03/02/2024 N/A 64913-IXNB SKIN LESIONS, 2 TO 4 03/02/2024 N/A 78575-HIBTJNR NAIL, 6 OR MORE 07/15/2024 N/A 10220-PJZE SKIN LESIONS, 2 TO 4 07/15/2024 N/A Encounters Encounter Location Date Provider Diagnosis [address] [address] 03/02/2024 Lee Ann Gaffney Atherosclerosis of belkofski artery of both lower extremities, with unspecified presence of clinical manifestation I70.203 ; Tinea unguium B35.1 ; Pain in right toe(s) M79.674 ; Pain in left toe(s) M79.675 and Xerosis of skin L85.3 [facility] [address] 07/15/2024 Lee Ann Gaffney Tinea pedis of both feet B35.3 ; Atherosclerosis of belkofski artery of both lower extremities, with unspecified presence of clinical manifestation I70.203 ; Tinea unguium B35.1 ; Pain in right toe(s) M79.674 and Pain in left toe(s) M79.[address] [address] 10/21/2024 Lee Ann Gaffney Tinea unguium B35.1 ; Atherosclerosis of belkofski artery of both lower extremities, with unspecified presence of clinical manifestation I70.203 ; Pain in right toe(s) M79.674 and Pain in left toe(s) M79.[address] [address] 01/16/2024 [facility]affney [facility] [address] [facility] [address] [place] [address] 02/19/2024 Lee Ann Gaffney [address] [address] 03/10/2024 Lee Ann Gaffney Xerosis of skin L85.[address] [address] 07/20/2024 Lee Ann Gaffney [address] [address] 08/21/2024 Lee Ann Gaffney [address] [address] 08/28/2024 Lee Ann Gaffney [address] [address] 10/14/2024 Lee Ann Gaffney Assessments Encounter Date Diagnosis (ICD Code) Assessment Notes Treatment Notes Treatment Clinical Notes Section Notes 03/02/2024 Atherosclerosis of belkofski artery of both lower extremities, with unspecified presence of clinical manifestation (ICD-10 - I70.203) Q7(A), Q8(2B), Q9(1B,2C) 03/10/2024 Xerosis of skin (ICD-10 - L85.3) 07/15/2024 Tinea pedis of both feet (ICD-10 - B35.3) 10/21/2024 Tinea unguium (ICD-10 - B35.1) 07/15/2024 Atherosclerosis of belkofski artery of both lower extremities, with unspecified presence of clinical manifestation (ICD-10 - I70.203) Q7(A), Q8(2B), Q9(1B,2C) 10/21/2024 Atherosclerosis of belkofski artery of both lower extremities, with unspecified presence of clinical manifestation (ICD-10 - I70.203) Q7(A), Q8(2B), Q9(1B,2C) 03/02/2024 Tinea unguium (ICD-10 - B35.1) 03/02/2024 Pain in right toe(s) (ICD-10 - M79.674) 07/15/2024 Tinea unguium (ICD-10 - B35.1) 10/21/2024 Pain in right toe(s) (ICD-10 - M79.674) 07/15/2024 Pain in right toe(s) (ICD-10 - M79.674) 10/21/2024 Pain in left toe(s) (ICD-10 - M79.675) 03/02/2024 Pain in left toe(s) (ICD-10 - M79.675) 03/02/2024 Xerosis of skin (ICD-10 - L85.3) 07/15/2024 Pain in left toe(s) (ICD-10 - M79.675) Plan Of Treatment Pending Test Test Name Order Date 00990-[id number] NAIL, 6 OR MORE 03/02/2024 45805-UWSPRBO NAIL, 6 OR MORE 07/15/2024 62688-JYEL SKIN LESIONS, 2 TO 4 07/16/19 47106-BDNN SKIN LESIONS, 2 TO 4 03/02/20 Next Appt Details Provider Name:Lee Ann Fanny thorpe, 02/22/2025 11:15:00 AM, [address] [place], [address], Insurance Providers Payer Name Payer Address Payer Phone Subscriber Number Group Number Insured Name Patient Relationship to Insured Coverage Start Date Coverage End Date [facility] Adv [address] [place] [address] [id number] Markus Bailey Self - patient is the insured Medical (General) History Medical History History ICD Code Arthritis Back,Hip,and Knee pain Heart disease High Blood Pressure Poor circulation Stroke Kidney disease Chicken pox Joint implants/screws
--- OUTSIDE RECORDS SUMMARY | 2024-11-25 11:05 | XMS_ITS | Patient Health Record ---
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) Active confirmed Problem Common bile duct calculus (190434447) Choledocholithiasis (574.50) Active confirmed Problem Jaundice (95187590) Jaundice (782.4) Active confirmed Plan Of Treatment Future Test Test Name Order Date ERCP REMOVAL OF STONES 01/05/2014 Insurance Providers Payer Name Payer Address Payer Phone Subscriber Number Group Number Insured Name Patient Relationship to Insured Coverage Start Date Coverage End Date MEDICARE OF [place] [address] [place] [address] [phone] [id number] MARQUEZ BOBBI Self - patient is the insured [facility] [address] [place] [address] [id number] BOBBI MARQUEZ Self - patient is the [...] hypertension hyperlipidemia He reports previous hx of LA 's--s/p cardiac cath and angioplasty/stent placement in 2008 CVA > 3 years ago NIDDM Denies Lung disease,renal disease Surgical History Surgery Date(Month/Year) Prostate Lap CCY--describes a preop ERCP--at [facility] 2012 Shoulder surgery
--- OUTSIDE RECORDS SUMMARY | 2024-11-25 11:05 | XMS_ITS | Clinical Summary ---
Author Organization [employer] it Address [address] [place] [address] Care Team Providers Care Mechanical Striper Name Role Phone JasonharisjuanIdalia villar Primary Care Pro vider Medications clopidogreL (PLAVIX) 75 mg tablet TAKE 1 TABLET BY MOUTH ONCE DAILY 28 tablet 5 5 Active clopidogreL (PLAVIX) 75 mg tablet TAKE 1 TABLET BY MOUTH DAILY. 28 tablet 6 5 11/25/19 25 Discontinued Surgical History Surgery Date Site/Laterality Comments CHOLECYSTECTOMY PROCEDURE: HISTORICAL CHOLECYSTECTOMY; COMMENT: ? removal or stent COLONOSCOPY 11/21/2016 PROCEDURE: HISTORICAL COLONOSCOPY; COMMENT: tubular adenoma OTHER SURGICAL HISTORY 04/17/2022 PROCEDURE: [place] SLCTV CATHJ 3RD+ ORD SLCTV ABDL PEL/LXTR [...] RCA stenting and re stenting 2008 Old VT (myocardial infarction) D X:Old VT (myocardial infarction) Diabetes type 2, controlled (CMS/HCC V24, CMS/HCC V28) DX:Diabetes type 2, controll ed ([facility]) Anemia 04/06/2014 DX:Anemia Peripheral neuropathy 04/06/2014 DX:Periphe ral neuropathy Tubular adenoma of colon 04/06/2014 DX:Tubu lar adenoma of colon; COMMENT: 2010 GERD (gastroesophageal reflux disease) DX:GERD (gastroesophageal reflux disease) Low back pain 04/06/2014 DX:Low back pain Cholelithiases 04/06/2014 DX:Cholelithiase s Type 2 diabetes mellitus wit h neurological manifestations, controlled ([facility] V24, [facility] V28) DX:Type 2 diabetes mellitus with neurological manifestations, controlled ([facility]) Tobacco use DX:Tobacco use Cerebrovascular accident (CV A) within last 3 months DX:Cerebrovascular accident (CVA) within last 3 months Choledocholithiasis 04/06/2014 DX:Choledoch olithiasis; COMMENT: 12/31/13 DM (diabetes mellitus), type 2 with peripheral vascular complications ([facility] V24, [facility] V28) 02/01/2021 DX:DM (diabetes mellitus), type 2 with peripheral vascular complications ([facility]) Urinary retention DX:Urinary ret ention Aspiration pneumonia ([facility], [facility] V28) DX:Aspiration pneumonia ([facility] ) LEE (acute kidney injury) ([facility] V24) DX:LEE (acute kidney injury) ([facility]) Type 2 diabetes mellitus wit hout complication, unspecified whether terminal press operator insulin use ([facility] V24, [facility] V28) DX:Type 2 diabetes mellitus without complication, unspecified whether terminal press operator insulin use ([facility]) Chronic pain syndrome DX:Chronic pain syndrome Dementia ([facility] V24, [facility] V28) DX:Dementia ([facility]) Social History Tobacco Use Types Packs/Day Years [...] series) 06/19/2015 Cholesterol Screening (Lipid Panel) 03/10/2022 Falls Risk Assessment 03/10/2022 Social Influencers of Health Screening 03/10/2022 Hypertension/CHF/CAD Annual BMP Blood Test 03/11/2022 Diabetes: Annual Urine Albumin-Creatinine Ratio (uACR) 03/15/2022 Diabetes: Blood Sugar Control Test (HGBA1C) 03/15/2022 COVID-19 Vaccine ( - season) 2023 Depression Screening 04/01/2024 Influenza Vaccine (#1) 2024 0, 01/23/2019, 12/10/2017, [...] age to complete this topic Care Teams Mechanical Striper Relationship Specialty Start Date End Date Idalia Richey DO PCP - General Internal Medicine 02/03/14
--- OUTSIDE RECORDS SUMMARY | 2024-11-25 11:05 | XMS_ITS | Encounter Summary ---
Author Organization [facility] Address [address] [place] [phone] Phone Care Team Providers Care Beverage Steward Name Role Phone Idalia Richey DO Primary Car e Provider Encounter Details Date Type Department Care Team (Latest Contact Info) Description 10/07/2017 Transcribe Orders Virtual Department [address] [place] [id number] Idalia Golden, [address] [place] [address] Dysphagia, unspecified type (Primary Dx) Social History Tobacco Use Types Packs/Day Years Used Date Smoking Tobacco: Never Assessed Sex and Gender Information Value Date Recorded Sex Assigned at Not on file Legal Sex Male 2:24 PM EDT Gender Identity Not on file Sexual Orientation Not on file documented as of this encounter Plan of Treatment Not on file documented as of this encounter Results * FL (Speech) Video Swallow Study (10/24/2017 10:52 AM EDT) Anatomical Region Laterality Modality Radiographic Lachelle ging 10/24/2017 10:5 3 AM EDT Impressions 10/24/2017 11:11 AM EDT No significant swallowing dysfunction. No aspiration. Refer to the speech therapist's report for any additional details. FLUOROSCOPY TIME: 2 min. 19 sec; 963 IMAGES/FRAMES POS - [id number] Narrative 10/24/2017 11:11 AM EDT COMPARISON: None. MODIFIED BARIUM SWALLOW FINDINGS: Warrant Server lateral neck radiograph was obtained. Soft tissues are normal. Moderate C6-7 disc space narrowing. Mild anterior wedging and loss of height of the C5 and C6 vertebral bodies which is likely degenerative. Multilevel facet arthropathy. A modified barium swallow was performed with speech therapy. Patient ingested multiple barium consistencies. Trace laryngeal penetration with thin barium which resolved with the chin tuck maneuver. No significant swallowing dysfunction. No aspiration. Procedure Note Michaela Orozco MD - 10/24/2017 COMPARISON: None. MODIFIED BARIUM SWALLOW FINDINGS: Warrant Server lateral neck radiograph was obtained. Soft tissues are normal.Moderate C6- 7 disc space narrowing. Mild anterior wedging and loss ofheight of the C5 and C6 vertebral bodies which is likely degenerative.Multilevel facet arthropathy. A modified barium swallow was performed withspeech therapy. Patient ingested multiple barium consistencies. Tracelaryngeal penetration with thin barium which resolved with the chin tuckmaneuver. No significant swallowing dysfunction. No aspiration. IMPRESSION: No significant swallowing dysfunction. No aspiration. Refer to thespeech therapist's report for any additional details. FLUOROSCOPY TIME: 2 min. 19 sec; 963 IMAGES/FRAMES POS - [id number] us Provider Not In System PhD IMG FL EXAMS Final Result documented in this encounter Visit Diagnoses Diagnosis Dysphagia, unspecified type- Primary Dysphagia, unspecified type documented in this encounter Care Teams Beverage Steward Relationship Specialty Start Date End Date Idalia Richey DO [address] [place] [address] PCP - General Internal Medicine 10/10/17 documented as of this encounter Additional Source Comments The information contained in this document represents components of the legal health record. It is not the complete legal health record.[facility]
== END 2024-11-25 10:47 | disposition home or self-care (01) ==
LOC: HO.HKA 10:17
PROVIDERS: PCP Internal Medicine; Visit Provider Internal Medicine Nephrology
DX: N18.31 Chronic kidney disease, stage 3a (principal); I15.0 Renovascular hypertension; N26.1 Atrophy of kidney (terminal)
CPT/HCPCS: 99214

== ENCOUNTER → 2024-11-25 10:16 | Outpatient (BNVA) | payer OTHER, SELFPAY | PROVIDERS: PCP Internal Medicine; Visit Provider Internal Medicine Nephrology | DX: N18.31 Chronic kidney disease, stage 3a (principal); I15.0 Renovascular hypertension | CPT/HCPCS: 99212 ==